=== PATIENT | male | born 1945 | race Caucasian/White ===

== ENCOUNTER 2021-07-11 10:47 | Inpatient (IN) ==
[2021-07-11] MEDS ORDERED: SODIUM CHLORIDE 0.9% 1000ML 2,000 ML IV ONE (11:18)
[2021-07-11] MEDS ORDERED: ACETAMINOPHEN 500 MG TAB PO STA (11:18)
--- NOTE | 2021-07-11 11:38 | Emergency Department Note ---
Impression & Plan Sepsis, Atrial fibrillation, Influenza A, Elevated troponin ED Provider Note Name: SABAS MONACO Age: 75 Sex: M Arrives Via: Walk-In Informant: Patient, ED Provider: Martin Yap MD Chief Complaint: Illness Impression: As per impressions above Medical Decision Making: Pleasant 75-year-old gentleman with a history of A. fib, type 2 diabetes on anticoagulation amongst other medications. He arrives for evaluation of fevers, confusion and significant worsening of cough/shortness of breath at home. On evaluation patient is mildly confused though is awake alert oriented in no significant distress. He is tachycardic and dehydrated appearing. Given these findings a sepsis work-up was initiated and patient had extensive laboratory testing obtained. His tachycardia started improving with fluids and Tylenol. I do note that he had a repeat temperature which was positive here and following this further fluids and empiric antibiotics were begun. Symptoms are consistent with a respiratory illness and thus Covid and flu testing were obtained and his influenza A test was eventually positive. His troponin testing is positive though EKG is without any acute ischemia. I do feel that this is likely secondary NSTEMI rather than primary ACS at this time. I will note that patient was treated per sepsis guidelines including a 30/kg IV bolus based on his ideal body weight of 70 kg. He received 2.5 L of IV fluids within the first 3 hours along with empiric IV Zosyn as antibiotic. Initial lactate was elevated at 3 and repeat repeat reveals to show improvement in his lactic acidosis. Patient was reevaluated for volume status following fluid administration and appears euvolemic and thus further fluids were not initiated following his initial bolus of fluids. Hospitalist was consulted for further management of the patient and patient/ are on board with this plan. Prior Medical Record and Triage/Nursing Notes reviewed by Me Additional history obtained from chart Differentials:Viral syndrome, otitis, pharyngitis, pneumonia, influenza, meningitis, urinary tract infection, sepsis, bacteremia, as well as other pathologies. Vital Signs: reviewed and remarkable for tachycardia, fever Interventions: Normal saline bolus 2.5 L IV, Zosyn 4.5 g IV, Tylenol 1 g p.o. Labs:Reviewed and remarkable for elevated lactic acid elevated troponin Imagin view chest x-ray reveals some mild congestion throughout without any lobar infiltrates EKG:Per My Interpretation: Indication Sepsis: Afib RVR 123 bpm, qtc 389. No Ectopy. No Ischemia. No previous EKG for comparison Cardiac/Tele Monitoring: Cardiac Monitoring: An Order was placed for continuous cardiac monitoring. The monitor shows a rate of 110 with a afib rhythm. Consults:Hospitalist Plan: Disposition:Hospitalization. Condition: Fair History of Present Illness:75-year-old gentleman arrives for evaluation of illness. Patient with 2 to 3 months of persistent cough and congestion. Seems to come in waves though has never been to severe. He has had testing periodically for Covid which have been negative. Overnight worsening cough with production. Associated with fevers and confusion. This morning patient was very short of breath, quite confused and febrile. Temperature at home was 101 per the . He was given Motrin with mild improvement. She notes his confusion is much improved since he has gotten here. He notes he feels like he just cannot catch his breath. He denies any syncope, chest pain, headache, neck pain abdominal pain, back pain, urinary/bowel symptoms, leg swelling, bruising/bleeding or other symptoms. He does note a history of A. fib but is on anticoagulation for. He has been on no recent antibiotics. Patient notes that exertion seems to make his shortness of breath worse and rest seems to make it better. Patient has no known sick con tacts. He does have history of Covid vaccination. ROS: See above HPI for pertinent positives & negatives. A total of 10 systems reviewed and were otherwise negative. Past Medical History:Hypertension, diabetes, atrial fibrillation Past Surgical History:See Below Family History:See Below Social History:See Below Home Medications:See Below Allergies:See Below Vitals:Blood Pressure: 123/60, Pulse 123, RR 22, T 37.4C, O2 95% on RA Physical Exam: GENERAL: Patient is unwell appearing and in no mild distress. A&O though tired appearing EYES: No scleral icterus, unremarkable pupils. ENT: Mucous membranes dry, no nasal congestion. NECK: No masses appreciated, nomeningismus, trachea is midline. RESPIRATORY: Mild tachypnea and cough with mild crackles all lung randall CARDIOVASCULAR: Tachy/irregular.No murmurs, rubs, gallops appreciated. GASTROINTESTINAL: Abdomen soft, non-tender, no peritonitis.Bowel sounds positive.No masses appreciated. BACK: No midline tenderness, no CVA tenderness EXTREMITIES: Normal motion all extremities, no cyanosis, no edema. NEUROLOGIC: Alert and oriented, no acute motor or sensory deficits, no focal weakness, cranial nerves grossly intact. SKIN: No rash, no jaundice, no diaphoresis. GCS: 15 ED Course: Times/Reassessments: Multiple reevaluations throughout the stay reevaluating patient for volume status and heart rate and mental status checks. Patient i mproving as fluid resuscitation initiated and cooperative with plan to hospitalize. Critical Care: I have personally spent 45 minutes of critical care time in the direct yuliana gement of this patient. Severe sepsis secondary to influenza requiring resuscitation. This was a life/limb threatening event. This 45 minutes is in excess of all separately billable procedures. Martin Yap MD Past Med/Surg History Medical History (Updated 07/12/21 @ 12:46 by Martin Yap MD) Atrial fibrillation Type 2 diabetes mellitus Social History Smoking Status: Former smoker Second Hand Exposure: Yes; Do You Dip or Chew Tobacco: No; Tobacco Cessation Education Requested by Patient: No Hx Alcohol Use: Yes Alcohol type: beer, wine and hard liquor Hx Substance Use: No Preferred Language: Wolof Communication Ability: Effective Production Cost Estimator Required: No Beliefs That Will Affect Care: None Current Living Situation: Spouse Other Information That Helps Us Care for You: No Feels Safe at Home: Yes Safety Concerns: Feels Safe At This Time Assistive Devices: None Allergies Allergies Allergy/AdvReac Type Severity Reaction Status Date / Time No Known Allergies Allergy Verified 07/11/21 11:48 Home Meds Home Medications Medication Instructions Recorded Confirmed dapagliflozin 10 mg tablet 10 mg PO DAILY 07/11/21 07/11/21 (Farxiga) glimepiride 1 mg tablet 1 mg PO QAM 07/11/21 07/11/21 lisinopril 10 mg tablet 10 mg PO QDD 07/11/21 07/11/21 metformin 500 mg tablet 1,000 mg PO BID 07/11/21 07/11/21 metoprolol succinate 50 mg 50 mg PO DAILY 07/11/21 07/11/21 tablet,extended release 24 hr rivaroxaban 20 mg tablet (Xarelto) 20 mg PO QDD 07/11/21 07/11/21 sitagliptin 100 mg tablet (Januvia) 100 mg PO DAILY 07/11/21 07/11/21 Results & Data (ED) Vital Signs Vital Signs - 24 hr 07/11/21 12:50 07/11/21 13:00 07/11/21 13:10 Pulse Rate 118 H 100 H 100 H Pulse Rate from SpO2 Sensor 104 H 107 H Respiratory Rate 29 H 25 H 17 Pulse Oximetry 91 94 Oxygen Delivery Method Room Air Room Air Room Air 07/11/21 13:20 07/11/21 13:30 07/11/21 13:40 Pulse Rate 101 H 100 H 101 H Pulse Rate from SpO2 Sensor 103 H 103 H 103 H Respiratory Rate 22 22 27 H Pulse Oximetry 93 93 92 Oxygen Delivery Method Room Air Room Air Room Air Laboratory Data Result diagrams: 07/12/21 06:58 07/12/21 06:58 Lab Results 07/11/21 07/11/21 07/11/21 Range/Units 11:35 11:35 11:38 WBC (4.8-10.8) K/uL RBC (4.7-6.1) M/uL Hgb (14.0-18.0) g/dL Hct (42-52) % MCV (80-100) fL MCH (25-34) pg MCHC (32-36) g/dL RDW Std Deviation (36.4-46.3) fL RDW Coeff of Leila (11.5-14.5) % Plt Count (130-400) K/uL MPV (7.4-10.4) fL Immature Gran % (Auto) % Neut % (Auto) % Lymph % (Auto) % [place] % (Auto) % Eos % (Auto) % Baso % (Auto) % Neut # (Auto) (1.4-6.5) K/uL Lymph # (Auto) (1.2-3.4) K/uL [place] # (Auto) (0.11-0.59) K/uL Eos # (Auto) (0-0.5) K/uL Baso # (Auto) (0-0.2) K/uL Immature Gran # (Auto) (0.00-0.02) K/uL Sodium (136-145) mmol/L Potassium (3.5-5.1) mmol/L Chloride (98-107) mmol/L Carbon Dioxide (21-32) mmol/L Anion Gap (3-11) BUN (6-23) mg/dl Creatinine (0.6-1.4) mg/dl Est Cr Clr Drug Dosing ml/min Est GFR ( Amer) ml/min Est GFR (Non-Af Amer) ml/min BUN/Creatinine Ratio (10-20) Glucose (70-99(Fasting)) mg/dl Lactate 3.1 H* (0.4-2.0) mmol/L Calcium (8.5-10.1) mg/dl Magnesium (1.7-2.4) mg/dl Total Bilirubin (0.2-1.0) mg/dl Direct Bilirubin (0-0.2) mg/dl AST (13-39) U/L ALT (7-52) U/L Alkaline Phosphatase (34-104) U/L Troponin I (0-0.04) ng/ml Total Protein (6.0-8.3) gm/dl Albumin (3.4-5.0) gm/dl Lipase (11-82) U/L Procalcitonin (0-0.5) ng/ml Urine Color Urine Appearance (Clear) Urine pH (4.5-7.5) Ur Specific [place] (1.000-1.030) Urine Protein (Negative) Urine Glucose (UA) (Negative) Urine Ketones (Negative) Urine Blood (Negative) Urine Nitrite (Negative) Urine Bilirubin (Negative) Urine Urobilinogen (Negative) Ur Leukocyte Esterase (Negative) Urine WBC (Auto) (0-5) /hpf Urine RBC (Auto) (0-4) /hpf U Hyaline Cast (Auto) (0-5) /lpf U Epithel Cells (Auto) (0-5) /lpf Urine Bacteria (Auto) (Negative) Influ A Molecular Assay Positive A* (Negative) Influ B Molecular Assay Negative (Negative) SARS-CoV-2, RNA, NAAT NEGATIVE (NEGATIVE) 07/11/21 07/11/21 07/11/21 Range/Units 11:38 11:38 11:38 WBC 12.54 H (4.8-10.8) K/uL RBC 5.68 (4.7-6.1) M/uL Hgb 16.7 (14.0-18.0) g/dL Hct 49.6 (42-52) % MCV 87.3 (80-100) fL MCH 29.4 (25-34) pg MCHC 33.7 (32-36) g/dL RDW Std Deviation 47.3 H (36.4-46.3) fL RDW Coeff of Leila 14.9 H (11.5-14.5) % Plt Count 212 (130-400) K/uL MPV 10.9 H (7.4-10.4) fL Immature Gran % (Auto) 0.4 % Neut % (Auto) 84.0 % Lymph % (Auto) 6.5 % [place] % (Auto) 8.8 % Eos % (Auto) 0.1 % Baso % (Auto) 0.2 % Neut # (Auto) 10.55 H (1.4-6.5) K/uL Lymph # (Auto) 0.81 L (1.2-3.4) K/uL [place] # (Auto) 1.10 H (0.11-0.59) K/uL Eos # (Auto) 0.01 (0-0.5) K/uL Baso # (Auto) 0.02 (0-0.2) K/uL Immature Gran # (Auto) 0.05 H (0.00-0.02) K/uL Sodium 135 L (136-145) mmol/L Potassium 4.1 (3.5-5.1) mmol/L Chloride 100 (98-107) mmol/L Carbon Dioxide 23 (21-32) mmol/L Anion Gap 12 H (3-11) BUN 16 (6-23) mg/dl Creatinine 1.14 (0.6-1.4) mg/dl Est Cr Clr Drug Dosing 59.4 ml/min Est GFR ( Amer) 72.5 ml/min Est GFR (Non-Af Amer) 62.6 ml/min BUN/Creatinine Ratio 14.0 (10-20) Glucose 253 H (70-99(Fasting)) mg/dl Lactate (0.4-2.0) mmol/L Calcium 9.9 (8.5-10.1) mg/dl Magnesium 1.8 (1.7-2.4) mg/dl Total Bilirubin 0.5 (0.2-1.0) mg/dl Direct Bilirubin 0.1 (0-0.2) mg/dl AST 18 (13-39) U/L ALT 17 (7-52) U/L Alkaline Phosphatase 60 (34-104) U/L Troponin I 1.61 H* (0-0.04) ng/ml Total Protein 7.6 (6.0-8.3) gm/dl Albumin 4.4 (3.4-5.0) gm/dl Lipase 29 (11-82) U/L Procalcitonin 0.41 (0-0.5) ng/ml Urine Color Urine Appearance (Clear) Urine pH (4.5-7.5) Ur Specific [place] (1.000-1.030) Urine Protein (Negative) Urine Glucose (UA) (Negative) Urine Ketones (Negative) Urine Blood (Negative) Urine Nitrite (Negative) Urine Bilirubin (Negative) Urine Urobilinogen (Negative) Ur Leukocyte Esterase (Negative) Urine WBC (Auto) (0-5) /hpf Urine RBC (Auto) (0-4) /hpf U Hyaline Cast (Auto) (0-5) /lpf U Epithel Cells (Auto) (0-5) /lpf Urine Bacteria (Auto) (Negative) Influ A Molecular Assay (Negative) Influ B Molecular Assay (Negative) SARS-CoV-2, RNA, NAAT (NEGATIVE) 07/11/21 Range/Units 12:05 WBC (4.8-10.8) K/uL RBC (4.7-6.1) M/uL Hgb (14.0-18.0) g/dL Hct (42-52) % MCV (80-100) fL MCH (25-34) pg MCHC (32-36) g/dL RDW Std Deviation (36.4-46.3) fL RDW Coeff of Leila (11.5-14.5) % Plt Count (130-400) K/uL MPV (7.4-10.4) fL Immature Gran % (Auto) % Neut % (Auto) % Lymph % (Auto) % [place] % (Auto) % Eos % (Auto) % Baso % (Auto) % Neut # (Auto) (1.4-6.5) K/uL Lymph # (Auto) (1.2-3.4) K/uL [place] # (Auto) (0.11-0.59) K/uL Eos # (Auto) (0-0.5) K/uL Baso # (Auto) (0-0.2) K/uL Immature Gran # (Auto) (0.00-0.02) K/uL Sodium (136-145) mmol/L Potassium (3.5-5.1) mmol/L Chloride (98-107) mmol/L Carbon Dioxide (21-32) mmol/L Anion Gap (3-11) BUN (6-23) mg/dl Creatinine (0.6-1.4) mg/dl Est Cr Clr Drug Dosing ml/min Est GFR ( Amer) ml/min Est GFR (Non-Af Amer) ml/min BUN/Creatinine Ratio (10-20) Glucose (70-99(Fasting)) mg/dl Lactate (0.4-2.0) mmol/L Calcium (8.5-10.1) mg/dl Magnesium (1.7-2.4) mg/dl Total Bilirubin (0.2-1.0) mg/dl Direct Bilirubin (0-0.2) mg/dl AST (13-39) U/L ALT (7-52) U/L Alkaline Phosphatase (34-104) U/L Troponin I (0-0.04) ng/ml Total Protein (6.0-8.3) gm/dl Albumin (3.4-5.0) gm/dl Lipase (11-82) U/L Procalcitonin (0-0.5) ng/ml Urine Color Yellow Urine Appearance Clear (Clear) Urine pH 5.5 (4.5-7.5) Ur Specific [place] 1.023 (1.000-1.030) Urine Protein 1+ H (Negative) Urine Glucose (UA) 3+ H (Negative) Urine Ketones 1+ H (Negative) Urine Blood 2+ H (Negative) Urine Nitrite Negative (Negative) Urine Bilirubin Negative (Negative) Urine Urobilinogen Negative (Negative) Ur Leukocyte Esterase Negative (Negative) Urine WBC (Auto) 0 (0-5) /hpf Urine RBC (Auto) 5-10 H (0-4) /hpf U Hyaline Cast (Auto) 0 (0-5) /lpf U Epithel Cells (Auto) 0-5 (0-5) /lpf Urine Bacteria (Auto) Negative (Negative) Influ A Molecular Assay (Negative) Influ B Molecular Assay (Negative) SARS-CoV-2, RNA, NAAT (NEGATIVE) Administered Medications Piperacillin Sod/Tazobactam (Sod 3.375 gm/ Dextrose) 115 mls @ 28.75 mls/hr IV Q8H [facility]; Protocol Stop: 07/13/21 17:59 Last Admin: 07/12/21 11:29 Dose: 28.8 mls/hr Documented by: [id number] Infusion: 07/12/21 07:21 Dose: 0 mls/hr Documented by: [id number] Admin: 07/12/21 02:56 Dose: 28.8 mls/hr Documented by: [id number] Infusion: 07/11/21 21:45 Dose: 0 mls/hr Documented by: [id number] Admin: 07/11/21 17:44 Dose: 28.8 mls/hr Documented by: [id number] Insulin Aspart (Insulin Aspart Per Unit) 0 units SC ACHS [facility] Stop: 08/10/21 16:29 Last Admin: 07/12/21 11:26 Dose: Not Given Documented by: [id number] Admin: 07/12/21 09:09 Dose: Not Given Documented by: [id number] Admin: 07/11/21 21:42 Dose: Not Given Documented by: [id number] Cosigned by: [id number] Admin: 07/11/21 16:59 Dose: 4 units Documented by: [id number] Cosigned by: [id number] Metoprolol Succinate (Metoprolol Succ 50mg Ext Rel Tab) 50 mg PO DAILY [facility] Stop: 08/11/21 08:59 Last Admin: 07/12/21 08:35 Dose: 50 mg Documented by: [id number] Oseltamivir Phosphate (Oseltamivir Phosphate 75 Mg Cap) 75 mg PO BID [facility]; Protocol Stop: 07/16/21 20:59 Last Admin: 07/12/21 08:35 Dose: 75 mg Documented by: [id number] Admin: 07/11/21 21:02 Dose: 75 mg Documented by: [id number] Rivaroxaban (Rivaroxaban 20 Mg Tab) 20 mg PO QDD [facility] Stop: 08/10/21 16:44 Last Admin: 07/11/21 17:44 Dose: 20 mg Documented by: [id number] Discontinued Medications Acetaminophen (Acetaminophen 500 Mg Tab) 1,000 mg PO NOW STA Stop: 07/11/21 11:19 Last Admin: 07/11/21 11:53 Dose: 1,000 mg Documented by: [id number] Sodium Chloride (Nss 1000ml) 2,000 mls @ 999 mls/hr IV .Q2H1M ONE Stop: 07/11/21 13:18 Last Infusion: 07/11/21 14:06 Dose: 0 mls/hr Documented by: [id number] Admin: 07/11/21 11:48 Dose: 999 mls/hr Documented by: [id number] Piperacillin Sod/Tazobactam Sod (Zosyn) 4.5 gm in 120 mls @ 240 mls/hr IV NOW ONE Stop: 07/11/21 12:28 Last Infusion: 07/11/21 12:56 Dose: 0 mls/hr Documented by: [id number] Admin: 07/11/21 12:24 Dose: 240 mls/hr Documented by: [id number] Sodium Chloride (Nss) 500 mls @ 999 mls/hr IV .Q31M ONE Stop: 07/11/21 12:29 Last Infusion: 07/11/21 12:56 Dose: 0 mls/hr Documented by: [id number] Admin: 07/11/21 12:25 Dose: 999 mls/hr Documented by: [id number] Oseltamivir Phosphate (Oseltamivir Phosphate 75 Mg Cap) 75 mg PO NOW STA; Protocol Stop: 07/11/21 12:15 Last Admin: 07/11/21 12:24 Dose: 75 mg Documented by: [id number] Discharge Plan Visit Data Chief Complaint: Fever Stated Complaint: FEVER, WEEZING, SOB, DR REFERRED ED Provider: Martin Yap Discharge Problem: Sepsis, Atrial fibrillation, Influenza A, Elevated troponin Patient Disposition: Admitted As Inpatient Discharge Instructions Interventions: ED Discharge Assessment Last Done: 07/11/21 14:45 Discharge Problem: Sepsis Qualifiers: Sepsis type: sepsis due to unspecified organism Sepsis acute organ dysfunction status: with acute organ dysfunction Severe sepsis acute organ dysfunction type: unspecified Severe sepsis shock status: without septic shock Qualified Code(s): A41.9 - Sepsis, unspecified organism Atrial fibrillation Qualifiers: Atrial fibrillation type: longstanding persistent Qualified Code(s): I48.11 - Longstanding persistent atrial fibrillation
[2021-07-11 11:55] LABS: Basophils # (auto) 0.02 K/uL (0-0.2); Basophils % (auto) 0.2 %; Eosinophils # (auto) 0.01 K/uL (0-0.5); Eosinophils % (auto) 0.1 %; Hematocrit (blood only) 49.6 % (42-52); Hemoglobin 16.7 g/dL (14.0-18.0); Immature Granulocytes # (auto) 0.05 K/uL (0.00-0.02); Immature Granulocytes % (auto) 0.4 %; Lymphocytes # (auto) 0.81 K/uL (1.2-3.4); Lymphocytes % (auto) 6.5 %; Mean Corpuscular Hemoglobin 29.4 pg (25-34); Mean Corpuscular Hgb Conc 33.7 g/dL (32-36); Mean Corpuscular Volume 87.3 fL (80-100); Mean Platelet Volume 10.9 fL (7.4-10.4); Monocytes % (auto) 8.8 %; Neutrophils # (auto) 10.55 K/uL (1.4-6.5); Platelet Count 212 K/uL (130-400); RDW Coefficient of Variation 14.9 % (11.5-14.5); RDW Standard Deviation 47.3 fL (36.4-46.3); Red Blood Count 5.68 M/uL (4.7-6.1); White Blood Count 12.54 K/uL (4.8-10.8)
[2021-07-11] MEDS ORDERED: SODIUM CHLORIDE 0.9% 500 ML IV ONE (11:59)
[2021-07-11] MEDS ORDERED: PIPERACILLIN/TAZOBACTAM 4.5 GM/120 ML BAG IV ONE (11:59)
[2021-07-11] MEDS ORDERED: PIPERACILL/TAZOBAC CONSULT ACTIVE PRN (11:59)
--- NOTE | 2021-07-11 12:09 | XRay Report ---
XR chest 1V portable CLINICAL HISTORY: sob. COMPARISON STUDY: No previous studies for comparison. TECHNIQUE: 1 view of the chest FINDINGS: Single frontal view of the chest demonstrates the cardiomediastinal silhouette to be within normal li mits. There is a decreased inspiratory effort with elevation of the hemidiaphragms and crowding of th e bronchovascular markings at the lung bases and centrally. The lungs are clear of alveolar opacities . There is no evidence for pleural effusion. There is no evidence for vascular congestion. There is n o acute osseous pathology. IMPRESSION: 1. There is a decreased inspiratory effort with otherwise no acute chest disease. ACT 112: Negative or not required by law. Electronically signed by: Samson Krause M.D. 07/11/2021 12:08 PM
[2021-07-11 12:13] LABS: Influenza A virus by PCR Positive (Negative); Influenza B virus by PCR Negative (Negative)
[2021-07-11] MEDS ORDERED: OSELTAMIVIR PHOSPHATE 75 MG CAP PO STA (12:14)
[2021-07-11 12:25] LABS: Albumin Level 4.4 gm/dl (3.4-5.0); Bilirubin Direct 0.1 mg/dl (0-0.2); Bilirubin,Total 0.5 mg/dl (0.2-1.0); Calcium 9.9 mg/dl (8.5-10.1); Creatinine Clr Calc Pharmacy 59.4 ml/min; Est GFR (African American) 72.5 ml/min; Est GFR (Non-African American) 62.6 ml/min; Magnesium 1.8 mg/dl (1.7-2.4); Potassium 4.1 mmol/L (3.5-5.1); Total Protein 7.6 gm/dl (6.0-8.3)
[2021-07-11 12:27] LABS: Troponin I 1.61 ng/ml (0-0.04)
[2021-07-11 12:28] LABS: Appearance Urine Clear (Clear); Bacteria Urine Automated Negative (Negative); Bilirubin Urine Negative (Negative); Blood Urine 2+ (Negative); Cast Urine Automated 0 /lpf (0-5); Color Urine Yellow; Epithelial Cell Urine Auto 0-5 /lpf (0-5); Glucose Urine UA 3+ (Negative); Ketones Urine 1+ (Negative); Leukocyte Esterase Urine Negative (Negative); Nitrite Urine Negative (Negative); Protein Urine 1+ (Negative); Specific Gravity Urine 1.023 (1.000-1.030); Urobilinogen Urine Negative (Negative); WBC Urine Automated 0 /hpf (0-5); pH Urine 5.5 (4.5-7.5)
--- NOTE | 2021-07-11 13:11 | Electrocardiogram Report ---
Test Reason : Blood Pressure : / mmHG Vent. Rate : 123 BPM Atrial Rate : 083 BPM P-R Int : 000 ms QRS Dur : 086 ms QT Int : 272 ms P-R-T Axes : 000 082 033 degrees QTc Int : 389 ms Atrial fibrillation with rapid ventricular response Abnormal ECG No previous ECGs available Confirmed by Jourdan Cabrera ([id number]) on 07/11/2021 1:11:19 PM Referred By: Confirmed By:Jourdan Cabrera
[2021-07-11] MEDS ORDERED: GLUCOSE 10 TABS/TUBE PO PRN (14:05)
[2021-07-11] MEDS ORDERED: GLUCAGON FOR INJ 1 MG VIAL SQ PRN (14:05)
[2021-07-11] MEDS ORDERED: GLUCOSE 40% GEL 15 GM TUBE PO PRN (14:05)
[2021-07-11] MEDS ORDERED: CARBOHYDRATES FOR HYPOGLYCEMIA PO PRN (14:05)
[2021-07-11] MEDS ORDERED: DEXTROSE 50% 50 ML SYRINGE IV PRN (14:05)
[2021-07-11] MEDS ORDERED: NITROGLYCERIN SL 0.4 MG/TAB TAB SL PRN (15:17)
[2021-07-11] MEDS ORDERED: ACETAMINOPHEN 325 MG TAB PO PRN (15:17)
--- NOTE | 2021-07-11 15:54 | History & Physical Report ---
Date of Service July 11, 2021 Assessment & Plan (1) Sepsis: Plan: Received 2500 ml of IVF in ED - repeat lactate improved to 2.0. Vital signs and clinical status improved post-fluid resuscitation. Influenza A positive, blood cultures pending. Creatinine at baseline of 1.1-1.2. - Repeat lactate again this evening - hold additional IVF for now unless lactate worsening, vitals worsening again - Empiric broad-spectrum antibiotics until blood cultures back - Repeat labs in AM (2) Influenza A: Plan: Tamiflu started in the ED - will continue. (3) Elevated troponin: Plan: Suspect related to demand ischemia related to sepsis and atrial fibrillation with RVR - Monitor on PCU - Trend troponin - Check ECHO - Repeat EKG in AM - Will hold on cardiology consult for now but if troponin worsening, EKG changes, or abnormalities on ECHO then can re-evaluate (4) Type 2 diabetes mellitus: Plan: Last A1c on 04/21/21 was 6.6 - Hold oral diabetic agents - Insulin sliding scale - Accuchecks and diabetic diet (5) Atrial fibrillation: Plan: Suspect RVR related to underlying sepsis - improved with IV fluid hydration - Continue anticoagulation as taken outpatient (Xarelto) (6) Microscopic hematuria: Plan: Pt denies gross hematuria - will defer work-up to outpatient. Plan: Holding Lisinopril for now - consider restarting tomorrow if BP stabilized. Pt seen and evaluated with attending physician, Dr. Faulkner. Plan of care discussed and as outlined above. Pt's , Janell, was updated at the bedside. DVT Prophylaxis: Xarelto Code Status: Full code David Nelson PA-C Admission and Anticipated Discharge Date Admission Date: July 11, 2021 History of Present Illness Chief Complaint: Fever and confusion Primary Care Provider: Nic Durbin MD This is a 75 y/o male with a PMH of atrial fibrillation on anticoagulation and diabetes mellitus type 2 who presents to the ED today with fever, confusion, and lethargy. Pt reports ongoing issues with intermittent cold symptoms since April. He was exposed to someone with cold symptoms and fatigue around [place] and shortly after developed similar symptoms and a low-grade fever. Flu and COVID testing were negative at that time. Symptoms have continued to wax and wane since then. Pt's reports that pt hasn't been himself for the past few days. Yesterday, he reports that he just "didn't feel well" but was unable to localize specific symptoms. Last night, he slept okay but this morning he woke up around 7 am confused, thinking that it was 7 pm last night. His noted that he had a fever of 100.9F. They called the PCP office who referred him to urgent care. At urgent care, they recommended that he be seen in the ED so they came here for evaluation. He has had a non-productive cough for the past several weeks but this is worse today. He also notes chest congestion today. Appetite is at baseline. Denies chest pain, palpitations, syncope, or peripheral edema. He has had some dizziness today but this has improved with IV hydration. He reports received the flu vaccine 2-3 months ago and the COVID vaccine x 3 doses. No specific known sick contacts. Has been sporadically using Tylenol PM and Motrin for cold symptoms since April but no t consistently. Allergies Allergy/AdvReac Type Severity Reaction Status Date / Time No Known Allergies Allergy Verified 07/11/21 11:48 Home Medications Medication Instructions Recorded Confirmed Type dapagliflozin 10 mg tablet 10 mg PO DAILY 07/11/21 07/11/21 History (Farxiga) glimepiride 1 mg tablet 1 mg PO QAM 07/11/21 07/11/21 History lisinopril 10 mg tablet 10 mg PO QDD 07/11/21 07/11/21 History metformin 500 mg tablet 1,000 mg PO BID 07/11/21 07/11/21 History metoprolol succinate 50 mg 50 mg PO DAILY 07/11/21 07/11/21 History tablet,extended release 24 hr rivaroxaban 20 mg tablet (Xarelto) 20 mg PO QDD 07/11/21 07/11/21 History sitagliptin 100 mg tablet (Januvia) 100 mg PO DAILY 07/11/21 07/11/21 History Past Med/Surg History Medical History (Updated 07/11/21 @ 16:14 by Abena Nelson PA-C) Atrial fibrillation Type 2 diabetes mellitus Social History Smoking Status: Former smoker Second Hand Exposure: Yes; Do You Dip or Chew Tobacco: No; Tobacco Cessation Education Requested by Patient: No Hx Alcohol Use: Yes Alcohol type: beer, wine and hard liquor Hx Substance Use: No Preferred Language: Egyptian Communication Ability: Effective Press Manager Required: No Beliefs That Will Affect Care: None Current Living Situation: Spouse Other Information That Helps Us Care for You: No Feels Safe at Home: Yes Safety Concerns: Feels Safe At This Time Assistive Devices: Denture - Upper Review of Systems Review of Systems: All systems reviewed & are unremarkable except as noted in HPI & below Constitutional: + fever, + chills and + fatigue; no anorexia Eyes: no diplopia and no worsening vision Ear, Nose, Mouth, Throat: + nasal congestion and + nasal discharge; no sore throat and no dysphagia Respiratory: + cough, + chest congestion and + dyspnea; no hemoptysis and no wheezing Cardiovascular: no chest pain, no palpitations, no syncope and no edema Gastrointestinal: no abdominal pain, no nausea, no vomiting, no diarrhea/loose stools and no blood in stools Genitourinary: no dysuria, no urinary frequency or no hematuria Musculoskeletal: no back pain and no neck pain Integumentary: no rash and no yellowing of the skin Neurologic: + dizziness and + confusion (this morning - improved at present); no seizure-like activity and no headache(s) Psychiatric: no depression and no anxiety Physical Exam Constitutional: well developed and well nourished; no acute distress Eyes: PERRL, conjunctivae normal, anicteric sclerae ENMT: external ear and nose normal, oropharynx normal Neck: trachea midline Respiratory: no respiratory distress and no labored breathing Auscultation: lungs clear to auscultation bilaterally; no rales, no rhonchi and no wheezes Cardiovascular: Rate/Rhythm: + tachycardic and + irregularly irregular Vessels: radial pulses present Extremities: no pedal edema Gastrointestinal (Abdomen): Inspection/Auscultation: normal bowel sounds; abdomen not distended Percussion/Palpation: abdomen soft; abdomen nontender Musculoskeletal: Head/Neck/Chest: normocephalic, head atraumatic and neck supple Skin: no jaundice Neurologic: moves all extremities; no focal motor deficits and not confused Psychiatric: A+Ox3, euthymic affect Results & Data Results & Data ([facility]) Vital Signs (Past 12 Hours) Vital Signs Temp Pulse Pulse Resp BP BP Pulse Ox 07/11/21 15:21 37.1 C 95 H 20 153/93 H 93 07/11/21 14:10 96 H 19 91 07/11/21 14:00 107 H 21 138/92 92 07/11/21 13:50 103 H 25 H 92 07/11/21 13:40 101 H 27 H 92 07/11/21 13:30 100 H 22 93 07/11/21 13:20 101 H 22 93 07/11/21 13:10 100 H 17 94 07/11/21 13:00 100 H 25 H 91 07/11/21 12:50 118 H 29 H 07/11/21 12:40 100 H 26 H 94 07/11/21 12:30 99 H 32 H 149/111 H 92 07/11/21 12:20 105 H 37 H 92 07/11/21 12:10 113 H 28 H 93 07/11/21 12:00 107 H 25 H 93 07/11/21 11:50 115 H 32 H 92 07/11/21 11:49 38.6 C H 07/11/21 10:59 36.6 C 134 H 18 188/101 H 94 Laboratory Results Laboratory Results - last 24 hr 07/11/21 07/11/21 07/11/21 11:35 11:35 11:38 WBC RBC Hgb Hct MCV MCH MCHC RDW Std Deviation RDW Coeff of Leila Plt Count MPV Immature Gran % (Auto) Neut % (Auto) Lymph % (Auto) [place] % (Auto) Eos % (Auto) Baso % (Auto) Neut # (Auto) Lymph # (Auto) [place] # (Auto) Eos # (Auto) Baso # (Auto) Immature Gran # (Auto) Sodium Potassium Chloride Carbon Dioxide Anion Gap BUN Creatinine Est Cr Clr Drug Dosing Est GFR ( Amer) Est GFR (Non-Af Amer) BUN/Creatinine Ratio Glucose Lactate 3.1 H* Calcium Magnesium Total Bilirubin Direct Bilirubin AST ALT Alkaline Phosphatase Troponin I Total Protein Albumin Lipase Procalcitonin Urine Color Urine Appearance Urine pH Ur Specific [place] Urine Protein Urine Glucose (UA) Urine Ketones Urine Blood Urine Nitrite Urine Bilirubin Urine Urobilinogen Ur Leukocyte Esterase Urine WBC (Auto) Urine RBC (Auto) U Hyaline Cast (Auto) U Epithel Cells (Auto) Urine Bacteria (Auto) Influ A Molecular Assay Positive A* Influ B Molecular Assay Negative SARS-CoV-2, RNA, NAAT NEGATIVE 07/11/21 07/11/21 07/11/21 11:38 11:38 11:38 WBC 12.54 H RBC 5.68 Hgb 16.7 Hct 49.6 MCV 87.3 MCH 29.4 MCHC 33.7 RDW Std Deviation 47.3 H RDW Coeff of Leila 14.9 H Plt Count 212 MPV 10.9 H Immature Gran % (Auto) 0.4 Neut % (Auto) 84.0 Lymph % (Auto) 6.5 [place] % (Auto) 8.8 Eos % (Auto) 0.1 Baso % (Auto) 0.2 Neut # (Auto) 10.55 H Lymph # (Auto) 0.81 L [place] # (Auto) 1.10 H Eos # (Auto) 0.01 Baso # (Auto) 0.02 Immature Gran # (Auto) 0.05 H Sodium 135 L Potassium 4.1 Chloride 100 Carbon Dioxide 23 Anion Gap 12 H BUN 16 Creatinine 1.14 Est Cr Clr Drug Dosing 59.4 Est GFR ( Amer) 72.5 Est GFR (Non-Af Amer) 62.6 BUN/Creatinine Ratio 14.0 Glucose 253 H Lactate Calcium 9.9 Magnesium 1.8 Total Bilirubin 0.5 Direct Bilirubin 0.1 AST 18 ALT 17 Alkaline Phosphatase 60 Troponin I 1.61 H* Total Protein 7.6 Albumin 4.4 Lipase 29 Procalcitonin 0.41 Urine Color Urine Appearance Urine pH Ur Specific [place] Urine Protein Urine Glucose (UA) Urine Ketones Urine Blood Urine Nitrite Urine Bilirubin Urine Urobilinogen Ur Leukocyte Esterase Urine WBC (Auto) Urine RBC (Auto) U Hyaline Cast (Auto) U Epithel Cells (Auto) Urine Bacteria (Auto) Influ A Molecular Assay Influ B Molecular Assay SARS-CoV-2, RNA, NAAT 07/11/21 07/11/21 12:05 13:57 WBC RBC Hgb Hct MCV MCH MCHC RDW Std Deviation RDW Coeff of Leila Plt Count MPV Immature Gran % (Auto) Neut % (Auto) Lymph % (Auto) [place] % (Auto) Eos % (Auto) Baso % (Auto) Neut # (Auto) Lymph # (Auto) [place] # (Auto) Eos # (Auto) Baso # (Auto) Immature Gran # (Auto) Sodium Potassium Chloride Carbon Dioxide Anion Gap BUN Creatinine Est Cr Clr Drug Dosing Est GFR ( Amer) Est GFR (Non-Af Amer) BUN/Creatinine Ratio Glucose Lactate 2.0 Calcium Magnesium Total Bilirubin Direct Bilirubin AST ALT Alkaline Phosphatase Troponin I Total Protein Albumin Lipase Procalcitonin Urine Color Yellow Urine Appearance Clear Urine pH 5.5 Ur Specific [place] 1.023 Urine Protein 1+ H Urine Glucose (UA) 3+ H Urine Ketones 1+ H Urine Blood 2+ H Urine Nitrite Negative Urine Bilirubin Negative Urine Urobilinogen Negative Ur Leukocyte Esterase Negative Urine WBC (Auto) 0 Urine RBC (Auto) 5-10 H U Hyaline Cast (Auto) 0 U Epithel Cells (Auto) 0-5 Urine Bacteria (Auto) Negative Influ A Molecular Assay Influ B Molecular Assay SARS-CoV-2, RNA, NAAT Diagnostic Findings Chest X-ray 07/11/21 - IMPRESSION: 1. There is a decreased inspiratory effort with otherwise no acute chest disease. Medications Administered Discontinued Medications Acetaminophen (Acetaminophen 500 Mg Tab) 1,000 mg PO NOW STA Stop: 07/11/21 11:19 Last Admin: 07/11/21 11:53 Dose: 1,000 mg Documented by: [id number] Sodium Chloride (Nss 1000ml) 2,000 mls @ 999 mls/hr IV .Q2H1M ONE Stop: 07/11/21 13:18 Last Infusion: 07/11/21 14:06 Dose: 0 mls/hr Documented by: [id number] Admin: 07/11/21 11:48 Dose: 999 mls/hr Documented by: [id number] Piperacillin Sod/Tazobactam Sod (Zosyn) 4.5 gm in 120 mls @ 240 mls/hr IV NOW ONE Stop: 07/11/21 12:28 Last Infusion: 07/11/21 12:56 Dose: 0 mls/hr Documented by: [id number] Admin: 07/11/21 12:24 Dose: 240 mls/hr Documented by: [id number] Sodium Chloride (Nss) 500 mls @ 999 mls/hr IV .Q31M ONE Stop: 07/11/21 12:29 Last Infusion: 07/11/21 12:56 Dose: 0 mls/hr Documented by: [id number] Admin: 07/11/21 12:25 Dose: 999 mls/hr Documented by: [id number] Oseltamivir Phosphate (Oseltamivir Phosphate 75 Mg Cap) 75 mg PO NOW STA; Protocol Stop: 07/11/21 12:15 Last Admin: 07/11/21 12:24 Dose: 75 mg Documented by: [id number] Code Status & VTE Plan VTE Prophylaxis Plan VTE Prophylaxis will be ordered: Yes Supervising Physician Co-Signing Physician Notes I have seen and examined the patient and have discussed the case with the provider above. I agree with the assessment and plan as stated. 75 yo M with DMII, afib and HTN presents with sepsis 2/2 influenza. Doing well after resuscitation efforts in the ER this morning. Feeling much better with some persistent shortness of breath. Denies chest pain or other issues. Sick since Apr, reports intermittent fevers. Denies weight loss, night sweats or international travel. Denies covid-19 infection. Reports not going to a doctor for any of this because "I thought it was a winter cold." Physical exam reveals clear lungs to auscultation, some tachycardia on cardiac exam with regular rhythm. Mentating clearly, Abdomen soft, NTND. Not diaphoretic or ill- appearing. Cont with plan as above including Tamiflu, empiric Zosyn in setting of sepsis pending culture results, and supportive care as needed. Cont monitoring in PCU. DO Kaushik
[2021-07-11] MEDS: INSULIN ASPART PER UNIT SC SCH ×2 (16:59→21:42)
[2021-07-11] MEDS: PIPERACILLIN/TAZOBACTAM 3.375 GM in DEXTROSE 5% 100 ML IV SCH (17:44)
[2021-07-11] MEDS: RIVAROXABAN 20 MG TAB PO SCH (17:44)
[2021-07-11] MEDS: OSELTAMIVIR PHOSPHATE 75 MG CAP PO SCH (21:02)
[2021-07-12] MEDS: PIPERACILLIN/TAZOBACTAM 3.375 GM in DEXTROSE 5% 100 ML IV SCH ×2 (02:56→11:29)
[2021-07-12 07:25] LABS: Basophils # (auto) 0.02 K/uL (0-0.2); Basophils % (auto) 0.2 %; Eosinophils # (auto) 0.01 K/uL (0-0.5); Eosinophils % (auto) 0.1 %; Hematocrit (blood only) 44.8 % (42-52); Hemoglobin 14.8 g/dL (14.0-18.0); Immature Granulocytes # (auto) 0.02 K/uL (0.00-0.02); Immature Granulocytes % (auto) 0.2 %; Lymphocytes # (auto) 1.73 K/uL (1.2-3.4); Lymphocytes % (auto) 18.8 %; Mean Corpuscular Volume 87.7 fL (80-100); Mean Platelet Volume 10.7 fL (7.4-10.4); Monocytes # (auto) 1.28 K/uL (0.11-0.59); Monocytes % (auto) 13.9 %; Neutrophils # (auto) 6.12 K/uL (1.4-6.5); Neutrophils % (auto) 66.8 %; Platelet Count 187 K/uL (130-400); RDW Coefficient of Variation 15.5 % (11.5-14.5); RDW Standard Deviation 50.3 fL (36.4-46.3); Red Blood Count 5.11 M/uL (4.7-6.1); White Blood Count 9.18 K/uL (4.8-10.8)
[2021-07-12 07:50] LABS: BUN Creatinine Ratio 13.9 (10-20); Calcium 8.1 mg/dl (8.5-10.1); Creatinine Clr Calc Pharmacy 59.1 ml/min; Est GFR (African American) 71.7 ml/min; Est GFR (Non-African American) 61.9 ml/min; Potassium 3.7 mmol/L (3.5-5.1)
[2021-07-12] MEDS: OSELTAMIVIR PHOSPHATE 75 MG CAP PO SCH ×2 (08:35→21:38)
[2021-07-12] MEDS ORDERED: METOPROLOL SUCC 50MG EXT REL TAB PO SCH (09:00)
[2021-07-12] MEDS: INSULIN ASPART PER UNIT SC SCH ×4 (09:09→21:29)
--- NOTE | 2021-07-12 13:27 | Electrocardiogram Report ---
Test Reason : Blood Pressure : / mmHG Vent. Rate : 102 BPM Atrial Rate : 105 BPM P-R Int : 000 ms QRS Dur : 078 ms QT Int : 316 ms P-R-T Axes : 000 072 069 degrees QTc Int : 411 ms Atrial fibrillation with rapid ventricular response Abnormal ECG When compared with ECG of 11-JUL-2021 11:36, ST no longer elevated in Anterior leads Confirmed by Jourdan Cabrera ([id number]) on 07/12/2021 1:27:09 PM Referred By: Nic Durbin Confirmed By:Jourdan Cabrera
--- NOTE | 2021-07-12 15:37 | Hospitalist Progress Note ---
Date of Service July 12, 2021 Assessment & Plan (1) Sepsis: Plan: Received 2500 ml of IVF in ED - repeat lactate improved to 2.0. Vital signs and clinical status improved post-fluid resuscitation. Influenza A positive, blood cultures are negative so far and he is clinically well. Stop Zosyn now, cont with oseltamivir and monitoring. Procalcitonin negative. (2) Influenza A: Plan: Cont tamiflu and supportive care as needed. (3) Elevated troponin: Plan: Suspect related to demand ischemia related to sepsis and atrial fibrillation with RVR - Trend troponin -echo pending - Repeat EKG reveals afib wtih RVR with rate in low 100s, but no acute ischemia -no chest pain or concern for ACS. (4) Type 2 diabetes mellitus: Plan: Last A1c on 04/21/21 was 6.6 - Hold oral diabetic agents - Insulin sliding scale - Accuchecks and diabetic diet (5) Atrial fibrillation: Plan: Suspect RVR related to underlying sepsis - improved with IV fluid hydration although still has some malaise from flu which is expected and tachycardia in the low 100s. Will change to metoprolol 25g PO q6hrs and continue to monitor on telemetry. Continue anticoagulation as taken outpatient (Xarelto) (6) Hypertension: Plan: restart lisinopril, initially held on admission in setting of sepsis. (7) Microscopic hematuria: Plan: Pt denies gross hematuria - will defer work-up to outpatient. (8) DVT prophylaxis: Plan: Xarelto Full Code Dispo-to home in am. Nurys Faulkner DO [facility] Hospitalist Admission and Anticipated Discharge Date Admission Date: July 11, 2021 Subjective 75-year-old man presented with sepsis secondary to influenza A Patient remains afebrile and without chills overnight Overall reports he feels like he has the flu but is improved generally speaking Heart rate in the low 100s overnight likely secondary to above Denies any chest pain, shortness of breath, coughing is improved Tolerating p.o. Review of Systems Review of Systems: All systems were reviewed and negative except as indicated above. Physical Exam Physical Exam: CONSTITUTIONAL: WNWD, vitals as above, generally well- appearing, NAD EYES: normal conjunctivae, no scleral icterus ENT: external ear and nose normal, MMM NECK: trachea midline RESPIRATORY: clear to auscultation bilaterally, no crackles, rales or wheezes, normal respiratory effort CARDIOVASCULAR: S1 and 2 heard without murmurs, gallops or rubs, no JVD, no peripheral edema, CHEST: inspection of chest was normal GASTROINTESTINAL: soft, nontender, ND, no guarding MUSCULOSKELETAL: strength 5/5 throughout, head is normocephalic and atraumatic SKIN: warm and dry, NEUROLOGIC: CN 2-12 grossly intact, no sensory deficit, normal cognition, normal speech, no tremor PSYCHIATRIC: alert cooperative and oriented to person, place and time. Results & Data Results & Data ([facility]) Vital Signs (Past 12 Hours) Vital Signs Temp Pulse Resp BP BP Pulse Ox 07/12/21 15:23 37.2 C 105 H 18 96 07/12/21 11:11 36.9 C 98 H 19 148/95 H 95 07/12/21 08:07 37.0 C 104 H 19 133/94 94 07/12/21 05:33 37.2 C 102 H 16 137/76 93 Laboratory Results Short CBC 07/12/21 Range/Units 06:58 WBC 9.18 (4.8-10.8) K/uL Hgb 14.8 (14.0-18.0) g/dL Hct 44.8 (42-52) % Plt Count 187 (130-400) K/uL BMP 07/12/21 06:58 Sodium 139 Potassium 3.7 Chloride 105 Carbon Dioxide 23 BUN 16 Creatinine 1.15 Glucose 108 H Calcium 8.1 L Cardiac Enzymes 07/11/21 07/11/21 Range/Units 17:12 23:18 Troponin I 1.29 H* 1.43 H* (0-0.04) ng/ml Medications Administered Current Inpatient Medications Acetaminophen (Acetaminophen 325 Mg Tab) 650 mg PO Q4H PRN PRN Reason: Pain or Fever Stop: 08/10/21 15:16 Dextrose (Dextrose 50% 50 Ml Syringe) 25 - 50 ml IV UD PRN; Protocol PRN Reason: Hypoglycemia Protocol Stop: 08/10/21 14:04 Glucagon (Glucagon For Inj 1 Mg Vial) 1 mg SQ UD PRN; Protocol PRN Reason: Hypoglycemia Protocol Stop: 08/10/21 14:04 Glucose (Glucose 10 Tabs/Tube) 4 - 8 tabs PO UD PRN; Protocol PRN Reason: Hypoglycemia Protocol Stop: 08/10/21 14:04 Glucose (Glucose 40% Gel 15 Gm Tube) 15 - 30 gm PO UD PRN; Protocol PRN Reason: Hypoglycemia Protocol Stop: 08/10/21 14:04 Insulin Aspart (Insulin Aspart Per Unit) 0 units SC ACHS [facility] Stop: 08/10/21 16:29 Last Admin: 07/12/21 11:26 Dose: Not Given Documented by: Metoprolol Succinate (Metoprolol Succ 50mg Ext Rel Tab) 50 mg PO DAILY [facility] Stop: 08/11/21 08:59 Last Admin: 07/12/21 08:35 Dose: 50 mg Documented by: Metoprolol Tartrate (Metoprolol Tartrate 25 Mg Tab) 25 mg PO Q6H [facility] Stop: 08/11/21 15:44 Miscellaneous (Carbohydrates For Hypoglycemia ) 15 - 30 gm PO UD PRN PRN Reason: Hypoglycemia Protocol Stop: 08/10/21 14:04 Nitroglycerin (Nitroglycerin Sl 0.4 Mg/Tab Tab) 0.4 mg SL UD PRN PRN Reason: Chest Pain Stop: 08/10/21 15:16 Oseltamivir Phosphate (Oseltamivir Phosphate 75 Mg Cap) 75 mg PO BID [facility]; Protocol Stop: 07/16/21 20:59 Last Admin: 07/12/21 08:35 Dose: 75 mg Documented by: Rivaroxaban (Rivaroxaban 20 Mg Tab) 20 mg PO QDD [facility] Stop: 08/10/21 16:44 Last Admin: 07/11/21 17:44 Dose: 20 mg Documented by: (1) Sepsis Sepsis acute organ dysfunction status: with acute organ dysfunction Sepsis type: sepsis due to unspecified organism Severe sepsis acute organ dysfunction type: unspecified Severe sepsis shock status: without septic shock Qualified Code(s): A41.9 - Sepsis, unspecified organism; R65.20 - Severe sepsis without septic shock (2) Atrial fibrillation Atrial fibrillation type: longstanding persistent Qualified Code(s): I48.11 - Longstanding persistent atrial fibrillation
[2021-07-12] MEDS ORDERED: lisinopril 10 MG TAB PO SCH (16:30)
[2021-07-12] MEDS: METOPROLOL TARTRATE 25 MG TAB PO SCH ×2 (16:33→21:37)
[2021-07-12] MEDS: RIVAROXABAN 20 MG TAB PO SCH (16:34)
[2021-07-13] MEDS: METOPROLOL TARTRATE 25 MG TAB PO SCH ×2 (04:14→09:48)
[2021-07-13 07:19] LABS: Basophils # (auto) 0.03 K/uL (0-0.2); Basophils % (auto) 0.3 %; Eosinophils # (auto) 0.08 K/uL (0-0.5); Eosinophils % (auto) 0.9 %; Hematocrit (blood only) 49.1 % (42-52); Hemoglobin 16.1 g/dL (14.0-18.0); Immature Granulocytes # (auto) 0.04 K/uL (0.00-0.02); Immature Granulocytes % (auto) 0.5 %; Lymphocytes # (auto) 1.48 K/uL (1.2-3.4); Lymphocytes % (auto) 16.9 %; Mean Corpuscular Hgb Conc 32.8 g/dL (32-36); Mean Corpuscular Volume 88.3 fL (80-100); Mean Platelet Volume 10.5 fL (7.4-10.4); Monocytes # (auto) 1.16 K/uL (0.11-0.59); Monocytes % (auto) 13.3 %; Neutrophils # (auto) 5.96 K/uL (1.4-6.5); Neutrophils % (auto) 68.1 %; Platelet Count 174 K/uL (130-400); RDW Coefficient of Variation 15.4 % (11.5-14.5); RDW Standard Deviation 49.4 fL (36.4-46.3); Red Blood Count 5.56 M/uL (4.7-6.1); White Blood Count 8.75 K/uL (4.8-10.8)
[2021-07-13 08:15] LABS: BUN Creatinine Ratio 20.2 (10-20); Calcium 8.2 mg/dl (8.5-10.1); Creatinine Clr Calc Pharmacy 71.7 ml/min; Est GFR (African American) 91.6 ml/min; Potassium 4.2 mmol/L (3.5-5.1)
[2021-07-13] MEDS ORDERED: lisinopril 20 MG TAB PO ONE (08:40)
[2021-07-13] MEDS: OSELTAMIVIR PHOSPHATE 75 MG CAP PO SCH (09:48)
[2021-07-13] MEDS: INSULIN ASPART PER UNIT SC SCH ×2 (09:49→12:46)
--- NOTE | 2021-07-13 13:53 | Discharge Summary ---
Date of Service July 13, 2021 Admission HPI Per Admitting Provider This is a 75 y/o male with a PMH of atrial fibrillation on anticoagulation and diabetes mellitus type 2 who presents to the ED today with fever, confusion, and lethargy. Pt reports ongoing issues with intermittent cold symptoms since April. He was exposed to someone with cold symptoms and fatigue around [place] and shortly after developed similar symptoms and a low-grade fever. Flu and COVID testing were negative at that time. Symptoms have continued to wax and wane since then. Pt's reports that pt hasn't been himself for the past few days. Yesterday, he reports that he just "didn't feel well" but was unable to localize specific symptoms. Last night, he slept okay but this morning he woke up around 7 am confused, thinking that it was 7 pm last night. His noted that he had a fever of 100.9F. They called the PCP office who referred him to urgent care. At urgent care, they recommended that he be seen in the ED so they came here for evaluation. He has had a non-productive cough for the past several weeks but this is worse today. He also notes chest congestion today. Appetite is at baseline. Denies chest pain, palpitations, syncope, or peripheral edema. He has had some dizziness today but this has improved with IV hydration. He reports received the flu vaccine 2-3 months ago and the COVID vaccine x 3 doses. No specific known sick contacts. Has been sporadically using Tylenol PM and Motrin for cold symptoms since April but not consistently. Admission Exam Per Admitting Provider Constitutional: well developed and well nourished; no acute distress Eyes: PERRL, conjunctivae normal, anicteric sclerae ENMT: external ear and nose normal, oropharynx normal Neck: trachea midline Respiratory: no respiratory distress and no labored breathing Auscultation: lungs clear to auscultation bilaterally; no rales, no rhonchi and no wheezes Cardiovascular: Rate/Rhythm: + tachycardic and + irregularly irregular Vessels: radial pulses present Extremities: no pedal edema Gastrointestinal (Abdomen): Inspection/Auscultation: normal bowel sounds; abdomen not distended Percussion/Palpation: abdomen soft; abdomen nontender Musculoskeletal: Head/Neck/Chest: normocephalic, head atraumatic and neck supple Skin: no jaundice Neurologic: moves all extremities; no focal motor deficits and not confused Psychiatric: A+Ox3, euthymic affect Principal Diagnosis Sepsis 2/2 infuenza A Atrial fibrillation with rapid ventricular response Elevated troponin 2/2 demand ischemia Hypertension Discharge Exam CONSTITUTIONAL: WNWD, vitals as above, generally well-appearing, NAD EYES: normal conjunctivae, no scleral icterus ENT: external ear and nose normal, MMM NECK: trachea midline RESPIRATORY: clear to auscultation bilaterally, no crackles, rales or wheezes, normal respiratory effort CARDIOVASCULAR: S1 and 2 heard without murmurs, gallops or rubs, no JVD, no peripheral edema, CHEST: inspection of chest was normal GASTROINTESTINAL: soft, nontender, ND, no guarding MUSCULOSKELETAL: strength 5/5 throughout, head is normocephalic and atraumatic SKIN: warm and dry, NEUROLOGIC: CN 2-12 grossly intact, no sensory deficit, normal cognition, normal speech, no tremor PSYCHIATRIC: alert cooperative and oriented to person, place and time. Discharge Data Allergies Allergy/AdvReac Type Severity Reaction Status Date / Time No Known Allergies Allergy Verified 07/11/21 11:48 Consultations 07/11/21 12:35 ED Decision to Admit Stat Ordered Studies Laboratory Results WBC 8.75 K/uL (4.8-10.8) 07/13/21 06:59 RBC 5.56 M/uL (4.7-6.1) 07/13/21 06:59 Hgb 16.1 g/dL (14.0-18.0) 07/13/21 06:59 Hct 49.1 % (42-52) 07/13/21 06:59 MCV 88.3 fL (80-100) 07/13/21 06:59 MCH 29.0 pg (25-34) 07/13/21 06:59 MCHC 32.8 g/dL (32-36) 07/13/21 06:59 RDW Std Deviation 49.4 fL (36.4-46.3) H 07/13/21 06:59 RDW Coeff of Leila 15.4 % (11.5-14.5) H 07/13/21 06:59 Plt Count 174 K/uL (130-400) 07/13/21 06:59 MPV 10.5 fL (7.4-10.4) H 07/13/21 06:59 Immature Gran % (Auto) 0.5 % 07/13/21 06:59 Neut % (Auto) 68.1 % 07/13/21 06:59 Lymph % (Auto) 16.9 % 07/13/21 06:59 Rock % (Auto) 13.3 % 07/13/21 06:59 Eos % (Auto) 0.9 % 07/13/21 06:59 Baso % (Auto) 0.3 % 07/13/21 06:59 Neut # (Auto) 5.96 K/uL (1.4-6.5) 07/13/21 06:59 Lymph # (Auto) 1.48 K/uL (1.2-3.4) 07/13/21 06:59 Rock # (Auto) 1.16 K/uL (0.11-0.59) H 07/13/21 06:59 Eos # (Auto) 0.08 K/uL (0-0.5) 07/13/21 06:59 Baso # (Auto) 0.03 K/uL (0-0.2) 07/13/21 06:59 Immature Gran # (Auto) 0.04 K/uL (0.00-0.02) H 07/13/21 06:59 Sodium 137 mmol/L (136-145) 07/13/21 06:59 Potassium 4.2 mmol/L (3.5-5.1) 07/13/21 06:59 Chloride 104 mmol/L (98-107) 07/13/21 06:59 Carbon Dioxide 19 mmol/L (21-32) L 07/13/21 06:59 Anion Gap 14 (3-11) H 07/13/21 06:59 BUN 19 mg/dl (6-23) 07/13/21 06:59 Creatinine 0.94 mg/dl (0.6-1.4) 07/13/21 06:59 Est Cr Clr Drug Dosing 71.7 ml/min 07/13/21 06:59 Est GFR ( Amer) 91.6 ml/min 07/13/21 06:59 Est GFR (Non-Af Amer) 79.0 ml/min 07/13/21 06:59 BUN/Creatinine Ratio 20.2 (10-20) H 07/13/21 06:59 Glucose 99 mg/dl (70-99(Fasting)) 07/13/21 06:59 POC Glucose 116 mg/dl (70-99) H 07/13/21 11:19 Lactate 2.4 mmol/L (0.4-2.0) H* 07/11/21 17:12 Calcium 8.2 mg/dl (8.5-10.1) L 07/13/21 06:59 Magnesium 1.8 mg/dl (1.7-2.4) 07/11/21 11:38 Total Bilirubin 0.5 mg/dl (0.2-1.0) 07/11/21 11:38 Direct Bilirubin 0.1 mg/dl (0-0.2) 07/11/21 11:38 AST 18 U/L (13-39) 07/11/21 11:38 ALT 17 U/L (7-52) 07/11/21 11:38 Alkaline Phosphatase 60 U/L (34-104) 07/11/21 11:38 Troponin I 1.19 ng/ml (0-0.04) H* 07/12/21 06:58 Total Protein 7.6 gm/dl (6.0-8.3) 07/11/21 11:38 Albumin 4.4 gm/dl (3.4-5.0) 07/11/21 11:38 Lipase 29 U/L (11-82) 07/11/21 11:38 Procalcitonin 0.41 ng/ml (0-0.5) 07/11/21 11:38 Urine Color Yellow 07/11/21 12:05 Urine Appearance Clear (Clear) 07/11/21 12:05 Urine pH 5.5 (4.5-7.5) 07/11/21 12:05 Ur Specific [place] 1.023 (1.000-1.030) 07/11/21 12:05 Urine Protein 1+ (Negative) H 07/11/21 12:05 Urine Glucose (UA) 3+ (Negative) H 07/11/21 12:05 Urine Ketones 1+ (Negative) H 07/11/21 12:05 Urine Blood 2+ (Negative) H 07/11/21 12:05 Urine Nitrite Negative (Negative) 07/11/21 12:05 Urine Bilirubin Negative (Negative) 07/11/21 12:05 Urine Urobilinogen Negative (Negative) 07/11/21 12:05 Ur Leukocyte Esterase Negative (Negative) 07/11/21 12:05 Urine WBC (Auto) 0 /hpf (0-5) 07/11/21 12:05 Urine RBC (Auto) 5-10 /hpf (0-4) H 07/11/21 12:05 U Hyaline Cast (Auto) 0 /lpf (0-5) 07/11/21 12:05 U Epithel Cells (Auto) 0-5 /lpf (0-5) 07/11/21 12:05 Urine Bacteria (Auto) Negative (Negative) 07/11/21 12:05 Influ A Molecular Assay Positive (Negative) A* 07/11/21 11:35 Influ B Molecular Assay Negative (Negative) 07/11/21 11:35 SARS-CoV-2, RNA, NAAT NEGATIVE (NEGATIVE) 07/11/21 11:35 Impressions Chest X-Ray 07/11/21 11:23 XR chest 1V portable CLINICAL HISTORY: sob. COMPARISON STUDY: No previous studies for comparison. TECHNIQUE: 1 view of the chest FINDINGS: Single frontal view of the chest demonstrates the cardiomediastinal silhouette to be within normal limits. There is a decreased inspiratory effort with elevation of the hemidiaphragms and crowding of the bronchovascular markings at the lung bases and centrally. The lungs are clear of alveolar opacities. There is no evidence for pleural effusion. There is no evidence for vascular congestion. There is no acute osseous pathology. IMPRESSION: 1. There is a decreased inspiratory effort with otherwise no acute chest disease. ACT 112: Negative or not required by law. Electronically signed by: Samson Krause M.D. 07/11/2021 12:08 PM Hospital Course (1) Sepsis: Received 2500 ml of IVF in ED - repeat lactate improved to 2.0. Vital signs and clinical status improved post-fluid resuscitation. Influenza A positive, blood cultures are negative so far and he is clinically well. Initially had him on Zosyn but this was stopped and he was monitored off antibiotics for at least 24 hours without issues. Procalcitonin was checked and negative. Cont oseltamivir. (2) Influenza A: Cont tamiflu and supportive care as needed. (3) Elevated troponin: Suspect related to demand ischemia related to sepsis and atrial fibrillation with RVR. Troponin was trended and did not show rise, improving with therapy. Ther ewas no ischemic change on EKG and no symptoms of chest pains or other symptoms that would suggest ACS during his hospital stay. He has a known h/o chronic atrial fibrillation for 20 years and has been on Xarelto and metoprolol long-term. He is open to establishing care with a local drop forger helper. No history of heart disease. Echo revealed moderate concentric left ventricular hypertrophy with normal left ventricular wall motion. Ejection fraction is 55 to 60%. Aortic leaflets are moderately calcified and there is moderate aortic stenosis and trivial aortic insufficiency. Mild mitral regur gitation and mild tricuspid regurgitation also seen. Right ventricular systolic pressure was moderately elevated at 40 to 50 mmHg. Recommend outpatient referral to [facility] to establish care. (4) Type 2 diabetes mellitus: A1C recently reflects good outpatient control. Was on basal bolus insulin during this admission and at goal. Transitioned back to his oral regimen at discharge. (5) Atrial fibrillation: Suspect RVR related to underlying sepsis - improved with IV fluid hydration although still has some malaise from flu which is expected and tachycardia in the low 100s. He was given Lopressor 25mg q6hrs with improvement in heart rate to 88 on day of discharge. Will double outpatient Toprol dose for the time being. Continue anticoagulation as taken outpatient (Xarelto) (6) Hypertension: restart lisinopril, initially held on admission in setting of sepsis. Some worsening blood pressure requiring additional lisinopril. Will double his outpatient dose and follow-up with primary care physician within 1-2 weeks for recheck and follow-up labwork as needed after changes. (7) Microscopic hematuria: Pt denies gross hematuria - MH seen on UA. Will defer work-up to outpatient. (8) DVT prophylaxis: Xarelto Full Code Dispo-to home in stable condition. Nurys Faulkner DO [facility] Hospitalist Total Time Total Time Spent Total Time Spent (In Minutes): 60 Discharge Plan Discharge Items Patient Disposition: Home - Self-Care Reason For Visit: FEVER, WEEZING, SOB, DR REFERRED Discharge Diagnosis: Sepsis 2/2 infuenza A Atrial fibrillation with rapid ventricular response Elevated troponin 2/2 demand ischemia Hypertension Activity: Resume your previous activity Non-emergency contact: Primary Care Provider Call non-emergency contact if: you have any medication questions, your symptoms worsen, your pain is not controlled, your pain is worsening, your pain is unusual for you, your pain is concerning for you and you have a fever Follow-up/Referrals: Nic Durbin MD [Primary Care Provider] - (Date & Time 07/19/2021 10:20 AM Provider Pankaj Obregon MD [facility] ) Diet: Carb Consistent or DM2 and Heart Healthy Addtl Attending Provider Instructions: Please take all medications as instructed on discharge as below. Please note that your Toprol and lisinopril have both been doubled. As a result of this you will need to follow-up with your primary care doctor within 1 week of discharge to ensure your vital signs are stable and blood work may need to be done at that time. Additionally, it is recommended that you establish care with an outpatient drop forger helper. A referral to cardiology may be placed at this time. Please continued oseltamivir to complete the course for flu and avoid interactions with young children or people with compromised immune systems as you are contagious until your symptoms improve. It was a pleasure taking care of you! Please call if you have any questions or problems. You can reach a [facility] hospitalist on duty at [facility] 24 hours a day by calling [phone]. Take care of yourself. Nurys Faulk[facility] Pending Studies at Discharge: No Stand-Alone Forms: My [facility] Medications and DC Order Prescriptions: New oseltamivir [Tamiflu] 75 mg Capsule 75 mg PO BID Qty: 6 RF: 0 Continued metformin 500 mg Tablet 1,000 mg PO BID RF: 0 glimepiride 1 mg Tablet 1 mg PO QAM RF: 0 Januvia 100 mg Tablet 100 mg PO DAILY RF: 0 Xarelto 20 mg Tablet 20 mg PO QDD RF: 0 Farxiga 10 mg Tablet 10 mg PO DAILY RF: 0 Changed metoprolol succinate 50 mg Tablet Extended Release 24 Hr 50 mg PO BID Qty: 60 RF: 0 lisinopril 10 mg Tablet 20 mg PO QDD Qty: 60 RF: 0 Discharge Orders: Discharge Order (Routine); Ordered 07/13/21 Ordered By: Nurys Faulkner Admission Data Admit Date/Time: 07/11/21 13:44 Attending Provider: Nurys Faulkner Admit Provider: Nurys Faulkner Primary Care Provider: Nic Durbin Other Providers: Nurys Faulkner
== END 2021-07-13 14:49 | disposition home or self-care (01) | DRG 872 ==
LOC: ED 10:47 → 2E 13:44

== ENCOUNTER 2024-05-31 12:02 | Inpatient (IN) ==
--- OUTSIDE RECORDS SUMMARY | 2024-05-31 12:10 | External Medical Summary | Summary of Care ---
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 180 Capsule 3 4 Active Rivaroxaban 20 MG Oral Tablet (Xarelto) Take 1 tablet by mouth daily with dinner 90 Tablet 3 4 Active amLODIPine Besylate 5 MG Oral Tablet (Norvasc)Indicati ons:HTN, goal below 130/80 TAKE 1 TABLET BY MOUTH EVERY DAY IN THE MORNING 90 Tablet 3 4 Active Lisinopril 30 MG Oral TabletIndications :Type 2 diabetes mellitus with hemoglobin A1c goal of less than 8.0% (HCC) Take 1 Tablet by mouth in the morning. 90 Tablet 3 4 Active SITagliptin Phosphate 100 MG Oral Tablet (Januvia) Take 1 Tablet by mouth in the morning. 90 Tablet 3 4 Active Dapagliflozin Propanediol 10 MG Oral Tablet (Farxiga) Take 1 tablet by mouth daily 90 Tablet 3 4 Active metFORMIN HCl 500 MG Oral Tablet (Glucophage) Take 2 Tablets by mouth in the morning and 2 Tablets before bedtime. 360 Tablet 3 4 Active Glimepiride 1 MG Oral Tablet (Amaryl) Take 1 Tablet by mouth in the morning. with the first main meal of the day for diabetes. 90 Tablet 3 4 Active Cetirizine HCl 10 MG Oral Tablet (ZyrTEC) Take 1 Tablet by mouth in the morning. 90 Tablet 3 4 Active Fluticasone Propionate 50 MCG/ACT Nasal Suspension (Flonase) Administer 2 Sprays into each nostril in the morning. 16 g 1 4 Active documented as of this encounter (statuses as of 04/07/2024) Active Problems Problem Noted Date Diagnosed Date Chronic kidney disease, stage 3a 12/24/2023 Overview: Per CKD protocol Hx of actinic keratosis 10/16/2022 Overview (10/16/2022): actinic keratoses (Efudex scalp 07/06) Hx of nonmelanoma skin cancer 11/22/2021 Overview (01/25/2022): squamous cell carcinoma (posterior vertex of scalp 02/02), basal cell carcinoma (R lateral cheek/stephenson region 12/02, R angle of mandible 02/02), at least Bowenoid AK (central vertex of scalp 12/02) Chronic atrial fibrillation 04/25/2021 Type 2 diabetes mellitus wit h hemoglobin A1c goal of less than 8.0% 05/31/2016 documented as of this encounter (statuses as of 04/07/2024) Resolved Problems Problem Noted Date Diagnosed Date Resolved Date Atrial fibrillation 05/31/2016 11/21/19 24 Microalbuminuria 05/31/2016 10/26/2021 documented as of this encounter (statuses as of 04/07/2024) Immunizations Name Administration Dates Next Due COVID-19 mRNA, LNP-s, No Pre serve, 2-Dose Series (Buzz360) 07/23/2020,06/25/2020 COVID-19, MRNA-LNP, PF, 50 M CG/0.5 mL, 12 YRS AND ABOVE, IM (MODERNA-Spikevax) 03/19/2023 Pneumococcal Conjugate Vacc, 13 Valent (Prevnar) 11/23/2014 Pneumococcal Polysaccharide PPV23 (Pneumovax) 11/07/2016 RSV Vac., Recomb, Adjuvant, PF,0.5 Ml (Arexvy) 05/15/2023 Season Influenza, Quad, PF, Adjuvanted, 65+ Yrs, IM (FLUAD) 02/25/2020 Seasonal Influenza Virus Vac cine, Unspecified Formulation 03/22/2015,02/16/2014 Seasonal Influenza, PF, 6 M & above, IM , (FluLaval or Fluzone) 03/26/2018 03/26/2019 Seasonal Influenza, Quadriva lent Hd (Fluzone Hd) 03/19/2023,05/01/2022,04/25/2021 Seasonal Influenza, Trivalen t, Adjuvanted, 65+ YRS, PF, (Fluad) 02/24/2019 TD - Tetanus/Diptheria (ADULT) 02/16/2014 TDAP (age 10 and older)(Boostrix) 05/15/2023 Varicella Zoster Vaccine (Adult) 01/19/2014 documented as of this encounter Social History Tobacco Use Types Packs/Day Years Used Date Smoking Tobacco: Some Days Cigars Passive Smoke Exposure: Never Smokeless Tobacco: Never Alcohol Use Standard Drinks/Week Comments Yes 0 (1 standard drink = 0.6 oz pur e alcohol) PHQ-2 Answer Date Recorded PHQ Adult Total Score 0 11/21/2023 Hunger Vital Sign Answer Date Recorded Within the past 12 months, y ou worried that your food would run out before you got the money to buy more. Never true 11/21/19 24 Within the past 12 months, t he food you bought just didn't last and you didn't have money to get more. Never true 11/21/2023 Childcare Answer Date Recorded Do you feel overwhelmed with taking care of a child, family member or friend? No 11/21/2023 Does your family need help f inding childcare? (Household - for ages 0-17 years) Not on file 11/21/2023 Clothing Answer Date Recorded Have you been unable to get clothing when it was really needed? No 11/21/2023 Is your family able to get c lothes or diapers when needed? (Household - for ages 0-17 years) Not on file 11/21/2023 Personal Safety Answer Date Recorded Do you feel unsafe or have concerns for your saf ety? No 11/21/2023 Do you have concerns for you r family's safety? (Household - for ages 0-17 years) Not on file 11/21/2023 Utilities Answer Date Recorded Do you have trouble paying y our heating, water, or electric bill? No 11/21/2023 Is your family able to pay t he heat, water, or electric bill? (Household - for ages 0-17 years) Not on file 11/21/2023 Does your family have access to good internet? (Household - for ages 0-17 years) Not on file 11/21/2023 Employment Status Answer Date Recorded Are you unemployed or without regular income? No 11/21/2023 Does the household have a [facility] source [facility] income? (Household - for ages 0-17 years) Not on file 11/21/2023 Social Connections Answer Date Recorded How often do you feel lonely or isolated from th ose around you? Never 11/21/2023 Financial Resource Strain Answer Date R ecorded Do you have any trouble payi ng for your medications, or do you think you might in the future? No 11/21/2023 Does your family have troubl e paying for medicine? (Household - for ages 0-17 years) Not on file 11/21/2023 Transportation Needs Answer Date Record ed Do you have trouble getting a ride to medical visits or work? (Adult - for ages 18 years and over) Not on file 11/21/2023 Does your family have a hard time getting a ride to doctors visits? (Household - for ages 0-17 years) Not on file 11/21/2023 Has lack of transportation k ept you from medical appointments, meetings, work, or from getting things needed for daily living? Check all that apply. No 11/21/2023 Do you (or your family) have trouble finding or paying for a ride (transportation)? (Household - for ages 0-17 years) Not on file 11/21/2023 Housing Stability Answer Date Recorded Do you currently live in a s helter or have no steady place to sleep at night? No 11/21/2023 Do you think you are at risk of becoming homeless? (Adult - for ages 18 years and over) Not on file 11/21/2023 Does your family worry about paying for your home or becoming homeless? (Household - for ages 0-17 years) Not on file 0 11/21/2023 Are you homeless or worried that you might be in the future? No 11/21/2023 Are you (or your family) modesto eless or worried that you might be in the future? (Household - for ages 0-17 years) Not on file Food Insecurity Answer Date Recorded Do you need food for this week? No 11/21/2023 Are you able to get enough f ood for your family? (Household - for ages 0-17 years) Not on file 11/21/2023 Does your family need food t his week? (Household - for ages 0-17 years) Not on file 11/21/2023 Do you always have enough fo od for your family? (Household - for ages 0-17 years) Not on file 11/21/2023 Sex and Gender Information Value Date Recorded Sex Assigned at Male 02/14/2022 8:05 AM EDT Legal Sex Male 7:07 AM EDT Gender Identity Male 02/14/2022 8:05 AM EDT Sexual Orientation Straight 02/24/2019 7: 27 AM EDT documented as of this encounter Plan of Treatment Upcoming Encounters Date Type Department Care Team (Late st Contact Info) Description 04/24/2024 7:40 AM EST Office Visit Dermatology, Bo[facility] Thomas [address] [phone] Hilary Faith PA-C [address] [place] [address] [place] [phone] 06/16/2024 7:40 AM EST Office Visit Family Practice, Boaz Zhu [address] [phone] Nic Durbin MD [address] [place] [address] Scheduled Orders Name Type Priority Associated Diagnoses Orde r Schedule MYCODE SUBSEQUENT ADULT Lab Routine [facility] Other*[id number] Every 6 Months for 2 Occurrences starting 04/07/2024 until 04/27/2025 Health Maintenance Due Date Last Done Comments DISCUSS TOBACCO CESSATION (REFER TO SMARTSET #3291) 1945 CKD PHOS USE SMARTSET 67603 09/12/1963 Adult Wellness Visit 09/12/2011 COVID-19 Vaccine ( season) 2024 03/19/2023, 03/29/2021, 07/23/2020, Additional history exists Influenza Vaccine (FLU shot) (#1) 2024 03/19/2023, 05/01/2022, 04/25/2021, Additional history exists B-12 05/18/2024 05/18/2023, 04/13, 04/21/2021, Additional history exists GFR 09/21/2024 03/24/2024, 07/0 01/2024, 05/18/2023, Additional history exists HbA1c 09/21/2024 03/24/2024, 07/0 01/2024, 05/18/2023, Additional history exists Albumin/Creatinine Ratio 11/19/2024 07 024, 10/24/2021, 08/20/2018, Additional history exists CKD HGB USE SMARTSET 69706 11/19/202411/19, 10/24/2021, 06/02/2020, Additional history exists Depression Screening 11/20/2024 11/21/2023 Diabetic Foot Exam 11/20/2024 11/21/2023, 1 05/26/2017, 05/25/2017 Diabetic Eye Exam 01/27/2025 01/28/2024, , 01/28/2024 (Done elsewhere), Additional history exists DTap/Tdap Vaccines (2 - Td or Tdap) 05/15/2033 05/15/2023, 02/16/2014 Zoster Vaccines Discontinued 01/19/2014 Pneumococcal Vaccine: 65+ Years Completed 11/07/2016, 11/23/2014 HPV (Gardasil) Vaccine Aged Out No lo nger eligible based on patient's age to complete this topic Hepatitis B Vaccine Aged Out No longe r eligible based on patient's age to complete this topic Hepatitis C Screening Discontinued MENINGOCOCCAL (MENACTRA/MENVEO) Aged Out No longer eligible based on patient's age to complete this topic documented as of this encounter Medical Devices Not on filedocumented as of this encounter Visit Diagnoses Diagnosis [facility] Other*[id number] documented in this encounter Advance Directives Documents on File Type Date Recorded 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
--- OUTSIDE RECORDS SUMMARY | 2024-05-31 12:10 | External Medical Summary | Summary of Care ---
Author Name Unknown Organization [facility] Address [address] [place] [address] Phone [phone] Care Team Providers Care Substation Electrician Name Role Phone Nic Durbin MD Primary Care Provider [phone]- [phone] Encounter Details Date Type Department Care Team (Late st Contact Info) Description 01/30/2024 Orders Only [facility] [address] [place] [address] Nic Durbin MD [address] [place] [address] Allergies No known active allergiesdocumented as of this encounter (statuses as of 01/30/2024) Medications Medication Sig Dispensed Refills Start Date End Date Status Metoprolol Succinate 50 MG Oral Capsule ER 24 Hour SprinkleIndications:P ermanent atrial fibrillation (HCC) Take 50 mg by mouth in the morning and 50 mg before bedtime. 180 Capsule 3 05/18/2023 Active Rivaroxaban 20 MG Oral Tablet (Xarelto) Take 1 tablet by mouth daily with dinner 90 Tablet 3 06/19/2023 Active amLODIPine Besylate 5 MG Oral Tablet (Norvasc)Indications: HTN, goal below 130/80 TAKE 1 TABLET BY MOUTH EVERY DAY IN THE MORNING 90 Tablet 3 10/03/2023 Active Lisinopril 30 MG Oral TabletIndications:Typ e 2 diabetes mellitus with hemoglobin A1c goal of less than 8.0% (HCC) Take 1 Tablet by mouth in the morning. 90 Tablet 3 11/21/2023 Active SITagliptin Phosphate 100 MG Oral Tablet (Januvia) Take 1 Tablet by mouth in the morning. 90 Tablet 3 12/19/2023 Active Dapagliflozin Propanediol 10 MG Oral Tablet (Farxiga) Take 1 tablet by mouth daily 90 Tablet 3 12/19/2023 Active metFORMIN HCl 500 MG Oral Tablet (Glucophage) Take 2 Tablets by mouth in the morning and 2 Tablets before bedtime. 360 Tablet 3 12/19/2023 Active Glimepiride 1 MG Oral Tablet (Amaryl) Take 1 Tablet by mouth in the morning. with the first main meal of the day for diabetes. 90 Tablet 3 12/19/2023 Active documented as of this encounter (statuses as of 01/30/2024) Active Problems Problem Noted Date Diagnosed Date Chronic kidney disease, stage 3a 12/24/2023 Overview: Per CKD protocol Hx of actinic keratosis 10/16/2022 Overview: actinic keratoses (Efudex scalp 07/06) Hx of nonmelanoma skin cancer 11/22/2021 Overview: squamous cell carcinoma (posterior vertex of scalp 02/02), basal cell carcinoma (R lateral cheek/stephenson region 12/02, R angle of mandible 02/02), at least Bowenoid [place] (central vertex of scalp 12/02) Chronic atrial fibrillation 04/25/2021 Type 2 diabetes mellitus wit h hemoglobin A1c goal of less than 8.0% 05/31/2016 documented as of this encounter (statuses as of 01/30/2024) Resolved Problems Problem Noted Date Diagnosed Date Resolved Date Atrial fibrillation 05/31/2016 11/21/19 24 Microalbuminuria 05/31/2016 10/26/2021 documented as of this encounter (statuses as of 01/30/2024) Immunizations Name Administration Dates Next Due COVID-19 mRNA, LNP-s, No Pre serve, 2-Dose Series ([employer]) 07/23/2020,06/25/2020 COVID-19, MRNA-LNP, 23-24, P F, 50 MCG/0.5 mL, 12 YRS AND ABOVE, IM (MODERNA-Spikevax) [...] No 11/21/2023 Does the household have a [facility] source [facility] income? (Household - for ages [...] Assigned at Male 02/14/2022 8:05 AM EDT Gender Identity Male 02/14/2022 8:05 AM EDT Sexual Orientation Straight 02/24/2019 7: 27 AM EDT Job Start Date Occupation Industry Not on file Not on file Not on file documented as of this encounter Plan of Treatment Upcoming Encounters Date Type Department Care Team (Late st Contact Info) Description 04/24/2024 7:40 AM EST [facility] [place] [address] [facility] [address] Hilary Faith PA-C [address] [place] [address] [place] [id number] 06/16/2024 7:40 AM EST Office Visit Family Practice, [place] [address] [facility] [place] [id number] Nic [facility]urbin [facility] [address] [facility] [place] [address] Health Maintenance Due Date Last Done Comments DISCUSS TOBACCO CESSATION (REFER TO SMARTSET #3291) 1945 CKD PHOS USE SMARTSET 78058 09/12/1963 Adult Wellness Visit 09/12/2011 COVID-19 Vaccine ( season) 2024 03/19/2023, 03/29/2021, 07/23/2020, Additional history exists Influenza Vaccine (FLU shot) (#1) 2024 03/19/2023, 05/01/2022, 04/25/2021, Additional history exists B-12 05/18/2024 05/18/2023, 04/13, 04/21/2021, Additional history exists GFR 05/22/2024 11/20/2023, 0 09/2023, 10/30/2022, Additional history exists HbA1c 05/22/2024 11/20/2023, 0 09/2023, 10/30/2022, Additional history exists Albumin/Creatinine Ratio 11/19/2024 024, 10/24/2021, 08/20/2018, Additional history exists CKD HGB USE SMARTSET 06031 11/19/202411/19, 10/24/2021, 06/02/2020, Additional history exists Depression Screening 11/20/2024 11/21/2023 Diabetic Foot Exam 11/20/2024 11/21/2023, 1 05/26/2017, 05/25/2017 Diabetic Eye Exam 01/29/2025 01/28/2024, (Done elsewhere), 01/25/2023, Additional history exists DTap/Tdap Vaccines (2 - [...] Not on filedocumented as of this encounter Procedures Procedure Name Priority Date/Time Associated Diagnosis Comments DIABETIC EYE EXAM Routine 01/28/2024 documented in this encounter Results * DIABETIC EYE EXAM (01/28/2024) 01/28/2024 History Per Patient OTHER OUTSIDE LAB (SEE SCANNED REPORT) documented in this encounter Advance Directives Documents on File Type Date 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
--- OUTSIDE RECORDS SUMMARY | 2024-05-31 12:10 | External Medical Summary | Summary of Care ---
Author Name Unknown Organization [facility] Address [address] [place] [address] Phone [phone] Care Team Providers Care Supervisor Reclamation Name Role Phone Nic Durbin MD Primary Care Provider [phone] Reason for Visit * Reason Comments Acute Pt here today for co ngestion and cough for about a month Encounter Details Date Type Department Care Team (Late st Contact Info) Description 02/07/2024 11:40 AM EDT Office Visit [facility] [address] [place] [address] Shayla Gordon MD [address] [place] [address] Chronic rhinitis*; Risk and functional assessment; Cough, unspecified type; Type 2 diabetes mellitus with hemoglobin A1c goal of less than 8.0% (HCC); Bronchitis, complicated; Chronic atrial fibrillation (HCC) Allergies No known active allergiesdocumented as of this encounter (statuses as of 02/07/2024) Medications Medication Sig Dispensed Refills Start Date End Date Status Metoprolol Succinate 50 MG Oral Capsule ER 24 Hour SprinkleIndications :Permanent atrial fibrillation (HCC) Take 50 mg by mouth in the morning and 50 mg before bedtime. 180 Capsule 3 05/18/2023 Active Rivaroxaban 20 MG Oral Tablet (Xarelto) Take 1 tablet by mouth daily with dinner 90 Tablet 3 06/19/2023 Active amLODIPine Besylate 5 MG Oral Tablet (Norvasc)Indication s:HTN, goal below 130/80 TAKE 1 TABLET BY MOUTH EVERY DAY IN THE MORNING 90 Tablet 3 10/03/2023 Active Lisinopril 30 MG Oral TabletIndications:T ype 2 diabetes mellitus with hemoglobin A1c goal [...] for diabetes. 90 Tablet 3 12/19/2023 Active Amoxicillin-Pot Clavulanate 500-125 MG Oral Tablet (Augmentin) Take 1 Tablet by mouth in the morning and 1 Tablet before bedtime. Do all this for 10 days. 20 Tablet 02/07/2024 02/17/2024 Active Cetirizine HCl 10 MG Oral Tablet (ZyrTEC) Take 1 Tablet by mouth in the morning. 90 Tablet 3 02/07/2024 Active Fluticasone Propionate 50 MCG/ACT Nasal Suspension (Flonase) Administer 2 Sprays into each nostril in the morning. 16 g 1 02/07/2024 Active documented as of this encounter (statuses as of 02/07/2024) Active Problems Problem Noted Date Diagnosed Date [...] as of this encounter (statuses as of 02/07/2024) Resolved Problems Problem Noted Date Diagnosed Date Resolved Date Atrial fibrillation 05/31/2016 11/21/19 24 Microalbuminuria 05/31/2016 10/26/2021 documented as of this encounter (statuses as of 02/07/2024) Immunizations Name Administration Dates Next Due COVID-19 mRNA, LNP-s, No Pre serve, 2-Dose Series (SGB) 07/23/2020,06/25/2020 COVID-19, MRNA-LNP, 23-24, P F, 50 [...] No 11/21/2023 Does the household have a re gular source of income? (Household - for ages [...] on file documented as of this encounter Last Filed Vital Signs Vital Sign Reading Time Taken Comments Blood Pressure 132/80 02/07/2024 11:36 AM EDT Pulse 82 02/07/2024 11:36 AM EDT Temperature 36.2 C (97.1 F) 02/07/2024 11:36 AM E DT Respiratory Rate 18 02/07/2024 11:36 AM EDT Oxygen Saturation 96% 02/07/2024 11:36 AM EDT Inhaled Oxygen Concentration - - Weight 84.8 kg (187 lb) 02/07/2024 11:36 AM EDT Height - - Body Mass Index 28.43 11/21/2023 7:35 AM EDT documented in this encounter Patient Instructions * Patient Instructions* Shayla Gordon MD - 02/07/2024 11:39 AM EDT Augmentin twice daily for 7-10 days And flonase daily first 5 days and then as needed daily for runny nose Continue zyrtec 10 mg daily for now Patient Instructions - Fall Prevention (This education is for all patients over 65 regardless of symptoms) Remember to take your current medications as prescribed. In order to prevent falls, you are encouraged to: Exercise Utilize assistive/adaptive devices Avoid multifocal lenses when walking Avoid hazards in home Maintain a regular toileting schedule Any questions please contact our office. Preventing Falls in the Home (This education is for all patients over 65 regardless of symptoms) As you get older, falls are more likely. Thats because your reaction time slows. Your muscles and joints may also get stiffer, making them less flexible. Illness, medications, and vision changes can also affect your balance. A fall could leave you unable to live on your own. To make your home safer, follow these tips: Floors Put nonskid pads under area rugs Remove throw rugs Replace worn floor coverings Tack carpets firmly to each step on carpeted stairs. Put nonskid strips on the edges of uncarpeted stairs Keep floors and stairs free of clutter and cords Arrange furniture so there are clear pathways Clean up any spills right away Bathrooms Install grab bars in the tub or shower Apply nonskid strips or put a nonskid rubber mat in the tub or shower Sit on a bath chair to bathe Use bathmats with nonskid backing Lighting Keep a flashlight in each room Put a nightlight along the pathway between the bedroom and the bathroom [employer] Patient Education Copyright 2009 - 2010 [employer] except where otherwise noted Preventing Falls: Exercises to Improve Balance, Flexibility, Strength, and Staying Power (This education is for all patients over 65 regardless of symptoms) Certain types of exercises may help make you less likely to fall. Try the ones below. Or do other exercises that your healthcare provider suggests. Depending on your health, you may need to start slowly. Dont let that stop you. Even small amounts of exercise can help you. Be sure to talk to yourhealthcare provider before starting any exercise program. Improve Balance Many types of exercise can help improve balance. Jose chi and yoga are good examples. Heres another one to try. You can do it anytime and almost anywhere. Stand next to a counter or solid support. Push yourself up onto your tiptoes. Hold for 5 seconds. If you start to lose your balance, hold on to the counter. Rest and repeat 5 times. Work up to holding for 20 to 30 seconds, if you can. Increase Flexibility Being more flexible makes it easier for you to move around safely. Try exercises like the seated hamstring stretch. Sit in a chair and put one foot on a stool. Straighten your leg and reach with both hands down either side of your leg. Reach as far down your leg as you can. Hold for about 20 seconds. Go back to the starting position. Then repeat 5 times. Switch legs. Build Strength Resistance exercises help build strength. You can do them without equipment. Or you can use weights, elastic bands, or special machines. One such exercise is called the biceps curl. You can hold a 1 pound weight or even a can of soup. Do this exercise at least 3 times a week. Strive for everyday. Sit up straight in a chair. Keep your elbow close to your body and your wrist straight. Bend your arm, moving your hand up to your shoulder. Then slowly lower your arm. Repeat 5 times. Switch to the other arm. Build Your Staying Power Aerobic exercises make your heart and lungs stronger so you can keep moving longer. Walking and swimming are two of the best types of exercises you can do. Using a stationary bike is great, too. Find an aerobic exercise that you enjoy. Start slowly and build up. Even 5 minutes is helpful. Aimfor a goal of 30 minutes, at least 3 times a week. You dont have to do 30 minutes in one session. Break it up and walk a little throughout the day. More Helpful Tips Start easy. Slowly work up to doing more. Talk with your healthcare provider about the best exercises for you. Call senior centers or health clubs about exercise programs. If needed, have a family member watch you walk every so often to check your stability. Exercise with a friend. Choose an activity you both enjoy. Try exercises that you can do anytime, anywhere. Here are two examples. Have someone with you when you first try these: Practice walking by placing one foot right in front of the other. Stand up and sit down 10 times. Repeat this throughout the day. [employer] Patient Education Copyright 2008 [employer] except where otherwise noted. Preventing Falls: Moving Safely Using a Cane or Walker (This education is for all patients over 65 regardless of symptoms) Keep the cane away from your feet so you dont trip. A walking aid, such as a cane or walker, can help you stay more independent and avoid falls. Remember to keep your walking aid within easy reach when youre in a chair or in bed. And learn how to use it safely so you dont injure yourself. Using a Cane If you have a stronger side, hold the cane on that side. Get your balance. Move the cane and your weaker leg forward. Support your weight on both the cane and your weaker side. Step with your stronger leg. Start again from step 1. If youre using a folding walker, be sure you know how to lock it open. Check that its locked open before each use. Using a Walker Roll the walker (or lift it, if youre using one without wheels) forward about 12 inches. Step forward with your weaker leg first. Use the walker to help keep your balance. Bring your other foot forward to the center of the walker. Start again from step 1. Helpful Tips Check with your healthcare provider about the right walking aid to use. Ask about a walker with a seat attached. Check the tips of your cane or walker to make sure they have nonskid covers. Move slowly from room to room. Dont marquez. Sit down to get dressed. Use a julian pack or backpack to keep your hands free. Get help for jobs that mean climbing, even on a stepstool. [employer] Patient Education Copyright 2008 - 2010 [employer] except where otherwise noted. Treating Urinary Incontinence in Men (This education is for all patients over 65 regardless of symptoms) You can't always control the release of urine. You may leak urine. Or you may not be able to hold your urine until you can get to a bathroom. This is called urinary incontinence. The problem can be managed. Talk to your doctor about your treatment options. Taking Medications Prescription medications may help you. They may: Help the sphincter to work better. (This is the muscle that closes to keep urine from leaking out of the bladder.) Help stop the bladder from agata too often to push urine out. Help the bladder muscles contract with more force. Help relax the sphincter muscle and allow urine to flow more freely. Making Changes to Your Routine Certain changes in your daily routine may help. These include: Avoiding caffeine and alcohol. Using timed voiding. This is following a schedule for drinking fluids and urinating. Doing Kegel exercises daily. These exercises involve tightening the muscles in your sphincter and around your bladder to help strengthen them. Your doctor can explain how to do them. Using a Catheter A catheter is a narrow tube that is inserted through the urethra into the bladder. It drains urine.A condom catheter covers the penis. It channels urine into a collection bag. It is worn most of thetime. Intermittent catheterization means inserting a catheter to drain the bladder, then removing it. This is done on a regular schedule. Having Surgery If other options don't work, surgery may be recommended. If surgery is an option, your healthcare provider can discuss it with you and explain its risks and benefits. Healing After Prostate Surgery Surgery on the prostate gland can cause incontinence. Most often, the incontinence is only for a short time. It clears up when healing is complete. Very rarely, prostate surgery can result in permanent incontinence. documented in this encounter Progress Notes * Shayal Gordon MD - 02/07/2024 12:36 PM EDT Subjective Pawan Majano is a 78 year old male. Chief Complaint Patient presents with Acute Pt here today for congestion and cough for about a month HPI: Her for chronic cough , seems more persistent throughout the day Shows runny nose drainage all the time Does not take any OTC Denies fever, wheezing, CP, SOB Showed bronchi diffusely Known afib, CKD PMH: Patient Active Problem List Diagnosis Type 2 diabetes mellitus with hemoglobin A1c goal of less than 8.0% (HCC) Chronic atrial fibrillation (HCC) Hx of nonmelanoma skin cancer Hx of actinic keratosis Chronic kidney disease, stage 3a (HCC) Current Outpatient Medications Medication Sig Dispense Refill Metoprolol Succinate 50 MG Oral Capsule ER 24 Hour Sprinkle Take 50 mg by mouth in the morning and 50 mg before bedtime. 180 Capsule 3 Rivaroxaban 20 MG Oral Tablet (Xarelto) Take 1 tablet by mouth daily with dinner 90 Tablet 3 amLODIPine Besylate 5 MG Oral Tablet (Norvasc) TAKE 1 TABLET BY MOUTH EVERY DAY IN THE MORNING 90 Tablet 3 Lisinopril 30 MG Oral Tablet Take 1 Tablet by mouth in the morning. 90 Tablet 3 SITagliptin Phosphate 100 MG Oral Tablet (Januvia) Take 1 Tablet by mouth in the morning. 90 Tablet3 Dapagliflozin Propanediol 10 MG Oral Tablet (Farxiga) Take 1 tablet by mouth daily 90 Tablet 3 metFORMIN HCl 500 MG Oral Tablet (Glucophage) Take 2 Tablets by mouth in the morning and 2 Tablets before bedtime. 360 Tablet 3 Glimepiride 1 MG Oral Tablet (Amaryl) Take 1 Tablet by mouth in the morning. with the first main meal of the day for diabetes. 90 Tablet 3 Amoxicillin-Pot Clavulanate 500-125 MG Oral Tablet (Augmentin) Take 1 Tablet by mouth in the morning and 1 Tablet before bedtime. Do all this for 10 days. 20 Tablet 0 Cetirizine HCl 10 MG Oral Tablet (ZyrTEC) Take 1 Tablet by mouth in the morning. 90 Tablet 3 Fluticasone Propionate 50 MCG/ACT Nasal Suspension (Flonase) Administer 2 Sprays into each nostril in the morning. 16 g 1 No current facility-administered medications for this visit. No past medical history on file. No past surgical history on file. Review of patient's allergies indicates: No Known Allergies No family history on file. No family status information on file. Social History Socioeconomic History Marital status: Spouse name: Not on file Number of children: Not on file Years of education: Not on file Highest education level: Not on file Occupational History Not on file Tobacco Use Smoking status: Some Days Types: Cigars Passive exposure: Never Smokeless tobacco: Never Vaping Use Vaping status: Never Used Substance and Sexual Activity Alcohol use: Yes Drug use: No Sexual activity: Yes Partners: Female Other Topics Concern Not on file Social History Narrative Not on file Social Determinants of Health Financial Resource Strain: Low Risk (11/21/2023) Financial Resource Strain Do you have any trouble paying for your medications, or do you think you might in the future? (Adult - for ages 18 years and over): No Does your family have trouble paying for medicine? (Household - for ages 0-17 years): Not on file Food Insecurity: No Food Insecurity (11/21/2023) Food Insecurity Do you need food for this week? (Adult - for ages 18 years and over): No Are you able to get enough food for your family? (Household - for ages 0-17 years): Not on file Does your family need food this week? (Household - for ages 0-17 years): Not on file Do you always have enough food for your family? (Household - for ages 0-17 years): Not on file Transportation Needs: No Transportation Needs (11/21/2023) Transportation Needs Do you have trouble getting a ride to medical visits or work? (Adult - for ages 18 years and over):Not on file Does your family have a hard time getting a ride to doctors visits? (Household - for ages 0-17 years): Not on file Has lack of transportation kept you from medical appointments, meetings, work, or from getting things needed for daily living? Check all that apply. (Adult - for ages 18 years and over): No Do you (or your family) have trouble finding or paying for a ride (transportation)? (Household - for ages 0-17 years): Not on file Social Connections: Socially Integrated (11/21/2023) Social Connections How often do you feel lonely or isolated from those around you? (Adult - for ages 18 years and over): Never Housing Stability: Low Risk (11/21/2023) Housing Stability Do you currently live in a chcf or have no steady place to sleep at night? (Adult - for ages 18 years and over): No Do you think you are at risk of becoming homeless? (Adult - for ages 18 years and over): Not on file Does your family worry about paying for your home or becoming homeless? (Household - for ages 0-17 years): Not on file Are you homeless or worried that you might be in the future? (Adult - for ages 18 years and over): No Are you (or your family) homeless or worried that you might be in the future? (Household - for ages0-17 years): Not on file Review of Systems Constitutional: Positive for fatigue. Negative for activity change, appetite change, chills, diaphoresis, fever and unexpected weight change. HENT: Positive for congestion, postnasal drip, rhinorrhea and sinus pressure. Negative for ear painand facial swelling. Respiratory: Positive for cough. Negative for chest tightness, shortness of breath and wheezing. Cardiovascular: Negative for chest pain, palpitations and leg swelling. Gastrointestinal: Negative for abdominal distention and abdominal pain. Allergic/Immunologic: Positive for environmental allergies. Neurological: Positive for headaches. Psychiatric/Behavioral: Positive for sleep disturbance. Negative for agitation and behavioral problems. Objective BP 132/80 | Pulse 82 | Temp 36.2 C (97.1 F) (Tympanic) | Resp 18 | Wt 84.8 kg (187 lb) | SpO2 96% | BMI 28.43 kg/m | BSA 2.02 m Physical Exam Constitutional: General: He is not in acute distress. Appearance: Normal appearance. He is not ill-appearing, toxic-appearing or diaphoretic. HENT: Head: Normocephalic and atraumatic. Nose: Congestion and rhinorrhea present. Eyes: Extraocular Movements: Extraocular movements intact. Cardiovascular: Rate and Rhythm: Normal rate. Rhythm irregular. Pulmonary: Effort: Pulmonary effort is normal. No respiratory distress. Breath sounds: No stridor. Rhonchi present. No wheezing or rales. Chest: Chest wall: No tenderness. Musculoskeletal: Right lower leg: No edema. Left lower leg: No edema. Neurological: General: No focal deficit present. Mental Status: He is alert and oriented to person, place, and time. Psychiatric: Behavior: Behavior normal. ASSESSMENT/PLAN: Chronic rhinitis (Primary) Risk and functional assessment Cough, unspecified type Type 2 diabetes mellitus with hemoglobin A1c goal of less than 8.0% (HCC) Bronchitis, complicated Chronic atrial fibrillation (HCC) Other orders - Amoxicillin-Pot Clavulanate 500-125 MG Oral Tablet (Augmentin); Take 1 Tablet by mouth in the morning and 1 Tablet before bedtime. Do all this for 10 days. - Cetirizine HCl 10 MG Oral Tablet (ZyrTEC); Take 1 Tablet by mouth in the morning. - Fluticasone Propionate 50 MCG/ACT Nasal Suspension (Flonase); Administer 2 Sprays into each nostril in the morning. Follow Up: Return in about 2 weeks (around 02/21/2024) for Clinic Visit. | For: Clinic Visit Augmentin twice daily for 7-10 days And flonase daily first 5 days and then as needed daily for runny nose Continue zyrtec 10 mg daily for now F/u in 2 wks Shayla Gordon MD documented in this encounter Nursing Notes * Citlaly Singleton LPN - 02/07/2024 11:36 AM EDT Chief Complaint Patient presents with Acute Pt here today for congestion and cough for about a month documented in this encounter Plan of Treatment Upcoming Encounters Date Type Department Care Team (Late st Contact Info) Description 02/21/2024 10:20 AM EDT Office Visit [address] [place] [phone] Shayla Gordon MD [address] [place] [address] 04/24/2024 7:40 AM EST Office Visit Dermatology[address] [place] [address] Hilary Faith PA-C [address] [place] [address] [place] [address] 06/16/2024 7:40 AM EST Office Visit [address] [place] [phone] Nic Durbin MD [address] [facility] [place] [id number] Health Maintenance Due Date Last Done Comments DISCUSS TOBACCO CESSATION (REFER TO SMARTSET #7030) 1945 CKD PHOS USE SMARTSET 78772 09/12/1963 Adult Wellness Visit 09/12/2011 COVID-19 Vaccine ( season) 2024 03/19/2023, 03/29/2021, 07/23/2020, Additional history exists Influenza Vaccine (FLU shot) (#1) 2024 03/19/2023, 05/01/2022, 04/25/2021, Additional history exists B-12 05/18/2024 05/18/2023, 04/13, 04/21/2021, Additional history exists GFR 05/22/2024 11/20/2023, 0 09/2023, 10/30/2022, Additional history exists HbA1c 05/22/2024 11/20/2023, 0 09/2023, 10/30/2022, Additional history exists Albumin/Creatinine Ratio 11/19/2024 07 024, 10/24/2021, 08/20/2018, Additional history exists CKD HGB USE SMARTSET 30365 11/19/202411/19, 10/24/2021, 06/02/2020, Additional history exists Depression Screening 11/20/2024 11/21/2023 Diabetic Foot Exam 11/20/2024 11/21/2023, 1 05/26/2017, 05/25/2017 Diabetic Eye Exam 01/27/2025 01/28/2024, (Done elsewhere), 01/25/2023, Additional history exists [...] as of this encounter Visit Diagnoses Diagnosis Chronic rhinitis- Primary Risk and functional assessment Screening for unspecified condition Cough, unspecified type Type 2 diabetes mellitus with hemoglobin A1c goal of less than 8.0% (HCC) Bronchitis, complicated Bronchitis, not specified as acute or chronic Chronic atrial fibrillation (HCC) Atrial fibrillation documented in this encounter Advance Directives Documents on File Type Date Recorded Patient 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
--- OUTSIDE RECORDS SUMMARY | 2024-05-31 12:10 | External Medical Summary | Summary of Care ---
Author Name Unknown Organization [facility] Address [address] [facility] [place] [address] Phone [phone] Care Team Providers Care Restorative Aide Name Role Phone Nic Durbin MD Primary Care Provider [phone]- [phone] Reason for Visit * Reason Comments Follow Up Pt here for yearly f ull skin exam. Hx of non-melanoma skin cancer. No concerns. Encounter Details Date Type Department Care Team (Late st Contact Info) Description 04/24/2024 7:40 AM EST [facility] [address] [place] [phone] Hilary Faith PA-C [address] [place] [address] [place] [address] Hx of nonmelanoma skin cancer*; Skin exam, screening for cancer; Scar condition and fibrosis of skin; Seborrheic keratosis; Actinic keratosis Allergies No known active allergiesdocumented as of this encounter (statuses as of 04/24/2024) Medications Metoprolol Succinate 50 MG Oral Capsule [...] the morning. 16 g 1 4 Active Fluorouracil 5 % External Cream (Efudex)Indicatio ns:Actinic keratosis Start May or 2024: apply thin layer to forehead and entire scalp 2x daily for 3 weeks, then please send photos through My Chart at the end of the treatment. 40 g 1 4 Active documented as of this encounter (statuses as of 04/24/2024) Active Problems Problem Noted Date Diagnosed Date [...] as of this encounter (statuses as of 04/24/2024) Resolved Problems Problem Noted Date Diagnosed Date Resolved Date Atrial fibrillation 05/31/2016 11/21/19 24 Microalbuminuria 05/31/2016 10/26/2021 documented as of this encounter (statuses as of 04/24/2024) Immunizations Name Administration Dates Next Due COVID-19 mRNA, LNP-s, No Pre serve, 2-Dose Series ([employer]) 07/23/2020,06/25/2020 COVID-19, MRNA-LNP, PF, 50 M CG/0.5 [...] AM EDT documented as of this encounter Patient Instructions * Patient Instructions* Hilary Faith PA-C - 04/24/2024 7:36 AM EST SUNSCREEN USE AND SUN PROTECTION: 1. The best protection is sun avoidance. Seek shade if you can, especially between 10am to 4pm (peak sun hours). 2. Use sunscreen with an SPF (Sun Protection Factor - the number on most sunscreen bottles) of 30 or more that protects from Ultraviolet A (UVA) and Ultraviolet B (UVB) wavelength light (strongly recommend SPF 50). This is referred to as broad spectrum sun protection because it protects from most wa velengths in both spectrums of UVA and UVB light. Unfortunately, even though the protection is broad it is not complete, therefore making sun avoidance the best protection. UVB and UVA have both beenimplicated in causing skin cancers. Older sunscreens only protected from UVB and sunscreens with added UVA protection should contain Titanium dioxide, Zinc oxide, or Avobenzone. Other oil free, non-comedogenic lotion with SPF 30 or greater is fine. 3. Use sun protection if outside for 15 minutes or more. Apply 20-30 minutes before going out and reapply every 1-2 hours. No sunscreen is truly water ''proof'' and it will wash away with sweat, swimming and rubbing. 4. Wear tightly woven, loose fitting (cooler) long sleeved clothing, UV-blocking sun glasses (eyes need protection as well) and wide-brimmed hatwear (no straw hats with holes because light still getsthrough). Strongly recommended *Neutrogena Pure and Free Baby SPF 60 (have separate face and body lotions) orCeraVe AM facial lotion (with SPF 30). If looking for non toxic alternatives-look for non-chloe particle zinc. Product examples; Think sport, Think baby, Mohini, Babo botanicalSimpleHoney, [place] Sou[place], [place] baby. "Baby" products can be used for all ages. documented in this encounter Progress Notes * Hilary Faith PA-C - 04/24/2024 7:40 AM EST SUBJECTIVE: History of Present Illness: Pawan Majano is a 78 year old male seen today for follow up of full skin exam. Previous office visit: 02/22/2023 Last attempted treatments include: NONE No new or changing lesions, per pt. 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 REVIEW OF SYSTEMS: SKIN: No other new or changing moles. HEME/LYMPH: No new or enlarging lumps or bumps. CONSTITUTIONAL: No nausea, vomiting, fevers, chills, diarrhea. No recent unintended weight loss, night sweats, appetite or malaise. RESP: negative MSK/EXT: Negative or as per HPI GI: negative CV: Negative or as per HPI Rest of systems are negative or as per HPI SKIN CANCER HX: squamous cell carcinoma (posterior vertex of scalp 02/02), basal cell carcinoma (R lateral cheek/stephenson region 12/02, R angle of mandible 02/02), at least Bowenoid AK (central vertex of scalp 12/02), actinic keratoses (Efudex scalp 07/06) Reviewed, same day as visit, 0 [facility] Dermatology lab work(s)/pathology report(s) as well as those sent by referring provider prior to seeing pt. MEDICA TIONS: Current Outpatient Medications Medication Sig Dispense Refill [...] the day for diabetes. 90 Tablet 3 Cetirizine HCl 10 MG Oral Tablet (ZyrTEC) Take 1 Tablet by mouth in the morning. 90 Tablet 3 Fluticasone Propionate 50 MCG/ACT Nasal Suspension (Flonase) Administer 2 Sprays into each nostril in the morning. 16 g 1 No current facility-administered medications for this visit. ALLERG IES: Patient has noknown allergies. OBJECT JADE: GEN: alert, no distress, appears oriented, pleasant, and cooperative. SKIN: Detailed exam of hair, face including lids and lips, neck, chest, abdomen, back, bilateral upper ext. (arm, hand, fingers), bilateral lower ext. (leg, foot, toes), palpation of scalp, fingernails, toenails, inguinal areas, groin (penis, scrotum and perineum), buttocks, and anus completed: 1. Scalp-9 pink/white non indurated scaly papules. 2. Central vertex of scalp-post inflammatory erythematous atrophic plaque. 3. R lateral cheek/stephenson region-post inflammatory erythematous vertical atrophic scar. 4. R angle mandible-post inflammatory erythematous vertical atrophic scar. 5. Face (L nasal sidewall)/neck/trunk/bilat arms-Many sharply defined, variegated brown, waxy flat papules with velvety to finely verrucous surfaces. ASSESS MENT/PLAN: 1. Actinic keratoses (x9) on scalp-Cryosurgery explained to the patient. Discussed risk of blistering, crusting, infection, scarring, reoccurrence of lesions, hypopigmentation, post inflammatory hyperpigmentation with pt prior to procedure. Verbal consent obtained. Time out called immediately prior to procedure and patient identification and site verified. Cryo therapy performed with Liquid Nitrogen via cryo spray unit to lesion (s) noted above. Location noted in physical exam. Post op course explained. Plan on field therapy over cryotherapy as treatment for lesions. Explained in office and pt givenwritten sheet with information on medication, instructions on treatment, appropriate response to medication, and tips on symptom relief. Pt will send photos through My Chart at the end of therapy forpost treatment instructions. 2. Scar s/p squamous cell carcinoma on central vertex of scalp-No sign of recurrence. 3. Scar s/p basal cell carcinoma on R lateral cheek/stephenson region-No sign of recurrence. 4. Scar s/p basal cell carcinoma on R angle mandible-No sign of recurrence. 5. Seborrheic/Benign Keratosis(-es) on face (L nasal sidewall)/neck/trunk/bilat arms-no tx needed, pt given reassurance. Skin cancer brochure given at previous office visit (pt declined need for another) and ABCDE's discussed with patient. Annual full body skin examination (unless I recommended otherwise), self-examination, and sun protection (SPF 30+ daily to sun exposed areas, with reapplication every 1-2 hours when out in sun for long periods of time) advised and discussed. Recommended sooner follow up for new or changing lesions. These changes include rapid enlargement, changes in color or shape or symptoms, bleeding, or other concerns. The common features and behavior of non-melanoma skin cancers (e.g. BCC/SCC) as well as the ABCDEs and ugly duckling features of melanoma were also reviewed. Patient alone today. Photo(s) of #1-5 taken, pt verbally consented to having photo(s) taken. Follow-up: 1 year for full skin exam Applicable photos (if any) and chart reviewed by Dr. Atnonio Mcdowell. Presumed diagnoses, expected natural histories, and management options discussed with the patient at length. Questions were addressed and anticipatory guidance provided. They were instructed to contact me if additional questions, concerns, or problems develop in the interim. -There were no barriers to learning and no other pain was related to today's visit. The patient and/or person accompanying patient demonstrates understanding of the visit and treatment. Hilary Faith PA-C 04/24/2024 7:[address] [facility] [place] [phone] documented in this encounter Nursing Notes * [place] LPN - 04/24/2024 7:34 AM EST Patient identified by full name and date of Chief Complaint Patient presents with Follow Up Pt here for yearly full skin exam. Hx of non-melanoma skin cancer. No concerns. documented in this encounter Plan of Treatment Upcoming Encounters Date Type Department Care Team (Late st Contact Info) Description 06/16/2024 7:40 AM EST Office Visit Family Practice, [facility] [address] [place] [phone] Nic Durbin MD [address] [place] [id number] 06/25/2025 7:40 AM EST Office Visit Dermatology, [facility] Thomas [address] [place] [phone] Hilary Faith, PAAnanda [address] [place] [address] [place] [id number] Health Maintenance Due Date Last Done Comments DISCUSS TOBACCO CESSATION (REFER TO SMARTSET #3291) 1945 CKD PHOS USE SMARTSET 97698 09/12/1963 Adult Wellness Visit 09/12/2011 COVID-19 Vaccine ( season) 2024 03/19/2023, 03/29/2021, 07/23/2020, Additional history exists Influenza Vaccine (FLU shot) (#1) 2024 03/19/2023, 05/01/2022, 04/25/2021, Additional history exists B-12 05/18/2024 05/18/2023, 04/13, 04/21/2021, Additional history exists GFR 09/21/2024 03/24/2024, 07/0 01/2024, 05/18/2023, Additional history exists HbA1c 09/21/2024 03/24/2024, 07/0 01/2024, 05/18/2023, Additional history exists Albumin/Creatinine Ratio 11/19/20242 024, 10/24/2021, 08/20/2018, Additional history exists CKD HGB USE SMARTSET 70147 11/19/202411/19, 10/24/2021, 06/02/2020, Additional history exists Depression [...] Procedure Name Priority Date/Time Associated Diagnosis Comments DERM EXAM - DERM (IMAGES ONLY, NO REPORT) Routine 04/24/2024 7:48 AM EST Hx of nonmelanoma skin cancer Skin exam, screening for cancer Scar condition and fibrosis of skin Seborrheic keratosis Actinic keratosis documented in this encounter Results * DERM EXAM - DERM (IMAGES ONLY, NO REPORT) (04/24/2024 7:48 AM EST) Narrative Scheduling, Silent - 04/24/2024 7:48 AM EST This is an imaging study not interpreted or resulted by a [facility] or [facility] contracted radiologist. us Hilary Faith PA-C RADIOLOGY ([facility] ) Final Result documented in this encounter Visit Diagnoses Diagnosis Hx of nonmelanoma skin cancer- Primary Personal history of other malignant neoplasm of skin Skin exam, screening for cancer Screening for malignant neoplasm of the skin Scar condition and fibrosis of skin Seborrheic keratosis Other seborrheic keratosis Actinic keratosis documented in this encounter Advance Directives Documents on File Type Date Recorded Patient Towerman Expl anation Advance Directives and Living Will 01/03/2005 LIVING WILL Power of Greek Professor 01/03/2005 POWER OF A TTORNEY [facility] POWER OF WORKSITE WELLNESS PRACTITIONER Care Teams Restorative Aide Relationship Specialty Start Date End Date Nic Durbin MD [address] [place] [address] PCP - General Family Medicine 05/23/16 documented as of this encounter
--- OUTSIDE RECORDS SUMMARY | 2024-05-31 12:10 | External Medical Summary | Summary of Care ---
Author Name Unknown Organization [facility] Address [address] [place] [address] Phone [phone] Care Team Providers Care Videotape Sales Representative Name Role Phone Nic Durbin MD Primary Care Provider [phone]- [phone] Reason for Visit * Reason Comments Outpatient Testing Encounter Details Date Type Department Care Team (Late st Contact Info) Description 03/24/2024 12:30 PM EST Laboratory Laboratory, [facility] [address] [place] [address] [facility] [address] [place] [address] Type 2 diabetes mellitus with hemoglobin A1c goal of less than 8.0% (HCC) Allergies No known active allergiesdocumented as of this encounter (statuses as of 03/24/2024) Medications Metoprolol Succinate 50 MG Oral Capsule [...] as of this encounter (statuses as of 03/24/2024) Active Problems Problem Noted Date Diagnosed Date [...] as of this encounter (statuses as of 03/24/2024) Resolved Problems Problem Noted Date Diagnosed Date Resolved Date Atrial fibrillation 05/31/2016 11/21/19 24 Microalbuminuria 05/31/2016 10/26/2021 documented as of this encounter (statuses as of 03/24/2024) Immunizations Name Administration Dates Next Due COVID-19 mRNA, LNP-s, No Pre serve, 2-Dose Series ([employer]) 07/23/2020,06/25/2020 COVID-19, MRNA-LNP, PF, 50 M CG/0.5 [...] No 11/21/2023 Does the household have a [facility] source of income? (Household - [...] Description 04/24/2024 7:40 AM EST Office Visit Dermatology [place] [address] [address] [place] [phone] Hilary Faith PA-C [address] [place] [address] [place] [address] 06/16/2024 7:40 AM EST Office Visit [facility] [address] [place] [address] Nic Durbin MD [address] [facility] [place] [address] Pending Results Name Type Priority Associated Diagnoses Date /Time HEMOGLOBIN A1C Lab Routine Type 2 diabetes mellitus with hemoglobin A1c goal of less than 8.0% ([facility]) 03/24/2024 11:27 AM EST BASIC METABOLIC PANEL Lab Routine Type 2 diabetes mellitus with hemoglobin A1c goal of less than 8.0% ([facility]) 03/24/2024 11:27 AM EST Health Maintenance Due Date Last Done Comments DISCUSS TOBACCO CESSATION (REFER TO SMARTSET #3291) 1945 CKD PHOS USE SMARTSET 23190 09/12/1963 Adult Wellness Visit 09/12/2011 COVID-19 Vaccine ( season) 2024 03/19/2023, 03/29/2021, 07/23/2020, Additional history exists Influenza Vaccine (FLU shot) (#1) 2024 03/19/2023, 05/01/2022, 04/25/2021, Additional history exists B-12 05/18/2024 05/18/2023, 04/13, 04/21/2021, Additional history exists GFR 05/22/2024 11/20/2023, 01/0 09/2023, 10/30/2022, Additional history exists HbA1c 05/22/2024 11/20/2023, 01/0 09/2023, 10/30/2022, Additional history exists Albumin/Creatinine Ratio 11/19/2024 07 024, 10/24/2021, 08/20/2018, Additional history exists CKD HGB USE SMARTSET 78970 11/19/202411/19, 10/24/2021, 06/02/2020, Additional history exists Depression [...] as of this encounter Visit Diagnoses Diagnosis Type 2 diabetes mellitus with hemoglobin A1c goal of less than 8.0% (HCC) documented in this encounter Advance Directives Documents on File Type Date Recorded 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
--- OUTSIDE RECORDS SUMMARY | 2024-05-31 12:10 | External Medical Summary ---
Author Name Unknown Address Unknown Organization [facility] [address] [place] [address] Laboratory Report Ordering Provider Test Date Status KATHRYN WAGNER 03/24/2024 11:27:52 Final Observation Date Value Abnormality Reference (Units ) Status BUN 03/24/2024 11:27:52 19 6-20 (mg/dL) Final Creatinine 03/24/2024 11:27:52 1.4 Above high normal 0.6-1.2 (mg/dL) Final Glomerular filtration rate/1.73 sq M.predicted [Volume Rate/Area] in Serum, Plasma or Blood by Creatinine-based formula (CKD-EPI) 03/24/2024 11:27:52 53 Below low normal >=60 (mL/min) Final eGFR is calculated based on the CKD-EPI 2020 equation. Sodium 03/24/2024 11:27:52 138 135-146 (m mol/L) Final Potassium 03/24/2024 11:27:52 5.0 3.5-5.1 (m mol/L) Final Cl 03/24/2024 11:27:52 101 98-107 (mm ol/L) Final CO2 03/24/2024 11:27:52 23 22-32 (mmo l/L) Final Anion gap 03/24/2024 11:27:52 14 7-15 (mmol /L) Final Glucose 03/24/2024 11:27:52 273 Above high normal 70 -120 (mg/dL) Final Calcium 03/24/2024 11:27:52 9.7 8.4-10.2 ( mg/dL) Final Performing Location [facility] [address] [place] [address]
--- OUTSIDE RECORDS SUMMARY | 2024-05-31 12:10 | External Medical Summary | Summary of Care ---
Author Name Unknown Organization [facility] Address [address] [place] [address] Phone [phone] Care Team Providers Care Senior Database Engineer Name Role Phone Bernard Peralta MD Primary Care Provider +1- [phone] Reason for Visit * Reason Onset Date Comments Medication Refill 12/18/2023 Encounter Details Date Type Department Care Team (Late st Contact Info) Description 12/18/2023 Refill [facility] [address] [place] [address] Bernard Peralta MD [address] [place] [address] Allergies No known active allergiesdocumented as of this encounter (statuses as of 12/19/2023) Medications Medication Sig Dispensed Refills Start Date End Date Status Metoprolol Succinate 50 MG Oral Capsule ER 24 Hour SprinkleIndication s:Permanent atrial fibrillation (HCC) Take 50 mg by mouth in the morning and 50 mg before bedtime. 180 Capsule 3 05/18/2023 Active Rivaroxaban 20 MG Oral Tablet (Xarelto) Take 1 tablet by mouth daily with dinner 90 Tablet 3 06/19/2023 Active amLODIPine Besylate 5 MG Oral Tablet (Norvasc)Indicatio ns:HTN, goal below 130/80 TAKE 1 TABLET BY MOUTH EVERY DAY IN THE MORNING 90 Tablet 3 10/03/2023 Active Lisinopril 30 MG Oral TabletIndications: Type 2 diabetes mellitus with hemoglobin A1c [...] before bedtime. 360 Tablet 3 12/19/2023 Active Januvia 100 MG Oral Tablet (SITagliptin) Take 1 Tablet (100 mg) by mouth in the morning. 90 Tablet 1 06/18/2023 12/18/2023 Discontinue d(Refill) Farxiga 10 MG Oral Tablet (Dapagliflozin Propanediol) Take 1 tablet by mouth daily 90 Tablet 1 06/18/2023 12/18/2023 Discontinue d(Refill) metFORMIN HCl 500 MG Oral Tablet (Glucophage) Take 2 tablets (1,000 mg) by mouth in the morning and 2 tablets (1,000 mg) before bedtime. 360 Tablet 1 06/18/2023 12/18/2023 Discontinue d(Refill) documented as of this encounter (statuses as of 12/19/2023) Active Problems Problem Noted Date Diagnosed Date Hx of actinic keratosis 10/16/2022 Overview: actinic [...] as of this encounter (statuses as of 12/19/2023) Resolved Problems Problem Noted Date Diagnosed Date Resolved Date Atrial fibrillation 05/31/2016 11/21/19 24 Microalbuminuria 05/31/2016 10/26/2021 documented as of this encounter (statuses as of 12/19/2023) Immunizations Name Administration Dates Next Due COVID-19 mRNA, LNP-s, No Pre serve, 2-Dose Series (dilitronics) 07/23/2020,06/25/2020 COVID-19, MRNA-LNP, 23-24, P F, 50 [...] 03/19/2023,05/01/2022,04/25/2021 Seasonal Influenza, Trivalen t, Adjuvanted, 65+ yrs 02/24/2019 TD - Tetanus/Diptheria (ADULT) 02/16/2014 TDAP [...] No 11/21/2023 Does the household have a [facility] source of income? (Household - for [...] on file documented as of this encounter Miscellaneous Notes * Telephone Encounter - Bernard Peralta MD - 12/19/2023 9:06 AM EDTSigned Prescriptions: Disp Refills SITagliptin Phosphate 100 MG Oral Tablet (*90 Tab*3 Sig: Take 1 Tablet by mouth in the morning.Authorizing Provider: BERNARD PERALTA Dapagliflozin Propanediol 10 MG Oral Table*90 Tab*3 Sig: Take 1 tablet by mouth dailyAuthorizing Provider: BERNARD PERALTA etFORMIN HCl 500 MG Oral Tablet (Glucopha*360 Ta*3 Sig: Take 2 Tablets by mouth in the morning and 2 Tablets before bedtime.Authorizing Provider: BERNARD PERALTA * Telephone Encounter - Maria Ines Bautista LPN - 12/18/2023 4:15 PM EDTPending Prescriptions: Disp Refills SITagliptin Phosphate 100 MG Oral Tablet (*90 Tab*1 Sig: Take 1 Tablet by mouth in the morning. Dapagliflozin Propanediol 10 MG Oral Table*90 Tab*1 Sig: Take 1 tablet by mouth daily metFORMIN HCl 500 MG Oral Tablet (Glucopha*360 Ta*1 Sig: Take 2 Tablets by mouth in the morning and 2 Tablets before bedtime. * Telephone Encounter - Maria Ines Bautista LPN - 12/18/2023 4:15 PM EDTPending Prescriptions: Disp Refills SITagliptin Phosphate 100 MG Oral Tablet (*90 Tab*1 Sig: Take 1 Tablet by mouth in the morning. Dapagliflozin Propanediol 10 MG Oral Table*90 Tab*1 Sig: Take 1 tablet by mouth daily metFORMIN HCl 500 MG Oral Tablet (Glucopha*360 Ta*1 Sig: Take 2 Tablets by mouth in the morning and 2 Tablets before bedtime. * Telephone Encounter - Hanna Austin OSA - 12/18/2023 2:48 PM EDT Did you pend patient's preferred pharmacy and medication before forwarding?yes Pharmacy: [facility] Pending Prescriptions: Disp Refills SITagliptin Phosphate 100 MG Oral Tablet *90 Tab*1 Sig: Take 1 Tablet by mouth in the morning. Dapagliflozin Propanediol 10 MG Oral Tabl*90 Tab*1 Sig: Take 1 tablet by mouth daily metFORMIN HCl 500 MG Oral Tablet (Glucoph*360 Ta*1 Sig: Take 2 Tablets by mouth in the morning and 2 Tablets before bedtime. Last Visit: 11/21/2023 (in office), 01/04/2022 (telemedicine) Next Visit: 06/16/2024 If no future appointments scheduled, and last appointment is greater than a year ago, please schedule patient for a follow-up appointment Last date the medication was ordered: 2523 Is this request for a controlled substance?No Urine Drug Screen:No results found for this or any previous visit. Patient Phone Numbers Labs: Lab Results Component Value Date/Time CREAT 1.4 (H) 11/20/2023 07:34 AM CREAT 1.1 06/02/2020 07:51 AM POTASSIUM 5.2 (H) 11/20/2023 07:34 AM POTASSIUM 4.8 06/02/2020 07:51 AM LDLCALC 121 11/20/2023 07:34 AM LDLCALC 105 06/02/2020 07:51 AM LDLDIRECT NOT APPLICABLE 06/02/2020 07:51 AM ALT 20 11/20/2023 07:34 AM ALT 22 06/02/2020 07:51 AM HGBA1C 7.1 (H) 11/20/2023 07:34 AM HGBA1C 6.5 (H) 06/02/2020 07:51 AM * Telephone Encounter - Hanna Austin OSA - 12/18/2023 2:43 PM EDT Did you pend patient's preferred pharmacy and medication before forwarding?yes Pharmacy: [email or web address] Pending Prescriptions: Disp Refills SITagliptin Phosphate 100 MG Oral Tablet *90 Tab*1 Sig: Take 1 Tablet by mouth in the morning. Last Visit: 11/21/2023 (in office), 01/04/2022 (telemedicine) Next Visit: 06/16/2024 If no future appointments scheduled, and last appointment is greater than a year ago, please schedule patient for a follow-up appointment Last date the medication was ordered: 2523 Is this request for a controlled substance?No Urine Drug Screen:No results found for this or any previous visit. Patient Phone Numbers Labs: Lab Results Component Value Date/Time CREAT 1.4 (H) 11/20/2023 07:34 AM CREAT 1.1 06/02/2020 07:51 AM POTASSIUM 5.2 (H) 11/20/2023 07:34 AM POTASSIUM 4.8 06/02/2020 07:51 AM LDLCALC 121 11/20/2023 07:34 AM LDLCALC 105 06/02/2020 07:51 AM LDLDIRECT NOT APPLICABLE 06/02/2020 07:51 AM ALT 20 11/20/2023 07:34 AM ALT 22 06/02/2020 07:51 AM HGBA1C 7.1 (H) 11/20/2023 07:34 AM HGBA1C 6.5 (H) 06/02/2020 07:51 AM documented in this encounter Plan of Treatment Upcoming Encounters Date Type Department Care Team (Late st Contact Info) Description 04/24/2024 7:40 AM EST Office Visit Dermatology [place] [address] [address] [address] Hilary Faith PA-C [address] [place] [address] [place] [address] 06/16/2024 7:40 AM EST Office Visit Family Practice, [place] [facility] [place] [address] Bernard Peralta MD [address] [place] [address] Health Maintenance Due Date Last Done Comments DISCUSS TOBACCO CESSATION (REFER TO SMARTSET #9789) 1945 COVID-19 Vaccine ( season) 2023 03/19/2023, 03/29/2021, 07/23/2020, Additional history exists Influenza Vaccine (FLU shot) (#1) 2024 03/19/2023, 05/01/2022, 04/25/2021, Additional history exists Diabetic Eye Exam 01/26/2024 01/25/2023, , 11/25/2020, Additional history exists B-12 05/18/2024 05/18/2023, 04/13, 04/21/2021, Additional history exists HbA1c 05/22/2024 11/20/2023, 01/0 09/2023, 10/30/2022, Additional history exists Albumin/Creatinine Ratio 11/19/2024 024, 10/24/2021, 08/20/2018, Additional history exists GFR 11/19/2024 11/20/2023, 010 09/2023, 10/30/2022, Additional history exists Depression Screening 11/20/2024 11/21/2023 Diabetic Foot Exam 11/20/2024 11/21/2023, 1 05/26/2017, 05/25/2017 DTaP,Tdap,and Td Vaccines (2 - Td or Tdap) 05/15/2033 [...] Not on filedocumented as of this encounter Advance Directives Documents on File Type Date Recorded Patient Script Worker Expl anation Advance Directives and Living Will 01/03/2005 LIVING WILL Power of Wedding Transportation Driver 01/03/2005 POWER OF A TTORNEY [facility] GENERAL POWER OF CLIENT EXPERIENCE ADMINISTRATOR Care Teams Senior Database Engineer Relationship Specialty Start Date End Date Bernard Peralta MD [address] [place] [address] PCP - General Family Medicine 05/23/16 documented as of this encounter
--- OUTSIDE RECORDS SUMMARY | 2024-05-31 12:10 | External Medical Summary | Summary of Care ---
Author Name Unknown Organization [facility] Address [address] [place] [address] Phone [phone] Care Team Providers Care Marketing Pr Intern Name Role Phone Bernard Peralta MD Primary Care Provider +1- [phone] Reason for Visit * Reason Onset Date Comments Medication Refill 12/18/2023 Encounter Details Date Type Department Care Team (Late st Contact Info) Description 12/18/2023 Refill [facility] [address] [place] [address] Bernard Peralta MD [address] [place] [address] Allergies No known active allergiesdocumented [...] the morning. 90 Tablet 3 11/21/2023 Active Glimepiride 1 MG Oral Tablet (Amaryl) Take 1 Tablet by mouth in the morning. with the first main meal of the day for diabetes. 90 Tablet 3 12/19/2023 Active Januvia 100 MG [...] 360 Tablet 1 06/18/2023 12/18/2023 Discontinue d(Refill) Glimepiride 1 MG Oral Tablet (Amaryl) Take 1 tablet (1 mg) by mouth in the morning with the first main meal of the day for diabetes. 90 Tablet 1 06/18/2023 12/18/2023 Discontinue d(Refill) documented [...] mRNA, LNP-s, No Pre serve, 2-Dose Series (Venda) 07/23/2020,06/25/2020 COVID-19, MRNA-LNP, 23-24, P F, 50 [...] No 11/21/2023 Does the household have a [facility] source of income? (Household - for ages [...] Encounter - Bernard Peralta MD - 12/19/2023 9:05 AM EDTSigned Prescriptions: Disp Refills Glimepiride 1 MG Oral Tablet (Amaryl) 90 Tab*3 Sig: Take 1 Tablet by mouth in the morning. with the first main meal of the day for diabetes.Authorizing Provider: BERNARD PERALTA * Telephone Encounter - Maria Ines Bautista LPN - 12/18/2023 4:15 PM EDTPending Prescriptions: Disp Refills Glimepiride 1 MG Oral Tablet (Amaryl) 90 Tab*1 Sig: Take 1 Tablet by mouth in the morning. with the first main meal of the day for diabetes. * Telephone Encounter - Hanna Austin OSA - 12/18/2023 2:49 PM EDT Did you pend patient's preferred pharmacy and medication before forwarding?yes Pharmacy: [facility] Pending Prescriptions: Disp Refills Glimepiride 1 MG Oral Tablet (Amaryl) 90 Tab*1 Sig: Take 1 Tablet by mouth in the morning. with the first main meal of the day for diabetes. Last Visit: 11/21/2023 (in office), 01/04/2022 (telemedicine) Next Visit: 06/16/2024 If no future appointments scheduled, and last appointment is greater than a year ago, please schedule patient for a follow-up appointment Last date the medication was ordered: 2992 Is this request for a controlled substance?No [...] 04/24/2024 7:40 AM EST Office Visit Dermatology, [place] [address] [place] [address] Hilary Faith PA-C [address] [place] [address] [place] [address] 06/16/2024 7:40 AM EST Office Visit Family Practice, [place] [address] [place] [facility] [place] [phone] Bernard Peralta MD [address] [place], [place] [phone] Health Maintenance Due Date Last Done Comments DISCUSS TOBACCO CESSATION (REFER TO SMARTSET #3291) 1945 COVID-19 Vaccine ( season) 2023 03/19/2023, 03/29/2021, 07/23/2020, Additional history exists Influenza Vaccine (FLU shot) (#1) 2024 03/19/2023, 05/01/2022, 04/25/2021, Additional history exists Diabetic Eye Exam 01/26/2024 01/25/2023, , 11/25/2020, Additional history exists B-12 05/18/2024 05/18/2023, 04/13, 04/21/2021, Additional history exists HbA1c 05/22/2024 11/20/2023, 0 09/2023, 10/30/2022, Additional history exists Albumin/Creatinine Ratio 11/19/2024 024, 10/24/2021, 08/20/2018, Additional history exists GFR 11/19/2024 11/20/2023, 0 09/2023, 10/30/2022, Additional history exists Depression Screening [...] Documents on File Type Date Recorded Patient Tunnel Form Placing Supervisor Expl anation Advance Directives and Living Will 01/03/2005 LIVING WILL Power of Transit Proof Machine Operator 01/03/2005 POWER OF A TTORNEY DURABLE GENERAL POWER OF SHOP BLACKSMITH Care Teams Marketing Pr Intern Relationship Specialty Start Date End Date Bernard Peralta MD [address] [place] [address] PCP - General Family Medicine 05/23/16 documented as of this encounter
--- OUTSIDE RECORDS SUMMARY | 2024-05-31 12:10 | External Medical Summary | Summary of Care ---
Author Name Unknown Organization [facility] Address [address] [place] [address] Phone [phone] Care Team Providers Care Manager Zone Name Role Phone Nic Durbin MD Primary Care Provider +1- [phone] Reason for Visit * Reason Onset Date Comments Medication Refill 03/03/2024 Encounter Details Date Type Department Care Team (Late st Contact Info) Description 03/03/2024 Refill [facility] [address] [place] [address] Nic Durbin MD [address] [place] [address] Allergies No known active allergiesdocumented as of this encounter (statuses as of 03/03/2024) Medications Medication Sig Dispensed Refills Start Date [...] for diabetes. 90 Tablet 3 12/19/2023 Active Cetirizine HCl 10 MG Oral Tablet (ZyrTEC) Take 1 Tablet by mouth in the morning. 90 Tablet 3 02/07/2024 Active Fluticasone Propionate 50 MCG/ACT Nasal Suspension (Flonase) Administer 2 Sprays into each nostril in the morning. 16 g 1 03/03/2024 Active Fluticasone Propionate 50 MCG/ACT Nasal Suspension (Flonase) Administer 2 Sprays into each nostril in the morning. 16 g 1 02/07/2024 4 Discontinue d(Refill) documented as of this encounter (statuses as of 03/03/2024) Active Problems Problem Noted Date Diagnosed Date [...] as of this encounter (statuses as of 03/03/2024) Resolved Problems Problem Noted Date Diagnosed Date Resolved Date Atrial fibrillation 05/31/2016 11/21/19 24 Microalbuminuria 05/31/2016 10/26/2021 documented as of this encounter (statuses as of 03/03/2024) Immunizations Name Administration Dates Next Due COVID-19 mRNA, LNP-s, No Pre serve, 2-Dose Series ([employer]) 07/23/2020,06/25/2020 COVID-19, MRNA-LNP, 23-24, P F, 50 [...] encounter Miscellaneous Notes * Telephone Encounter - Shayla Gordon MD - 03/03/2024 2:33 PM EDTSigned Prescriptions: Disp Refills Fluticasone Propionate 50 MCG/ACT Nasal [place]*16 g 1 Sig: Administer 2 Sprays into each nostril in the morning. Authorizing Provider: SHAYLA GORDON * Telephone Encounter - Kamron Peters OSA - 03/03/2024 2:07 PM EDT Did you pend patient's preferred pharmacy and medication before forwarding?yes Pharmacy: [id number] [address] [facility] Pending Prescriptions: Disp Refills Fluticasone Propionate 50 MCG/ACT Nasal S*16 g 1 Sig: Administer 2 Sprays into each nostril in the morning. Last Visit: 02/07/2024 (in office), 01/04/2022 (telemedicine) Next Visit: 06/16/2024 If no future appointments scheduled, and last appointment is greater than a year ago, please schedule patient for a follow-up appointment Last date the medication was ordered: 02/07/24 Is this request for a controlled substance?No Urine Drug Screen:No results found for this or any previous visit. Patient Phone Numbers Labs: Lab Results Component Value Date/Time CREAT 1.4 (H) 11/20/2023 07:34 AM CREAT 1.1 06/02/2020 07:51 AM POTASSIUM 5.2 (H) 11/20/2023 07:34 AM POTASSIUM 4.8 06/02/2020 07:51 AM LDL 121 11/20/2023 07:34 AM LDL 105 06/02/2020 07:51 AM LDL NOT APPLICABLE 06/02/2020 07:51 AM ALT 20 11/20/2023 07:34 AM ALT 22 06/02/2020 07:51 AM HGBA1C 7.1 (H) 11/20/2023 07:34 AM HGBA1C 6.5 (H) 06/02/2020 07:51 AM documented in this encounter Plan of Treatment Upcoming Encounters Date Type Department Care Team (Late st Contact Info) Description 04/24/2024 7:40 AM EST Office [facility] [place] [address] [facility] [address] Hilary Faith, BEN [address] [place] [address] [place] [address] 06/16/2024 7:40 AM EST Office Visit [facility] Practice, [place] [address] [facility] [phone] Nic [facility]urbin MD [address] [facility] [address] Health Maintenance Due Date Last Done Comments DISCUSS TOBACCO CESSATION (REFER TO SMARTSET #3416) 1945 CKD PHOS USE SMARTSET 71397 09/12/1963 Adult Wellness Visit 09/12/2011 COVID-19 Vaccine [...] Additional history exists CKD HGB USE SMARTSET 64051 11/19/202411/19, 10/24/2021, 06/02/2020, Additional history exists Depression [...] Documents on File Type Date Recorded Patient Lna Expl anation Advance Directives and Living Will 01/03/2005 LIVING WILL Power of Research Technologist 01/03/2005 POWER OF A TTORNEY [facility] GENERAL POWER OF PAVER LAYER Care Teams Manager Zone Relationship Specialty Start Date End Date Nic Durbin MD [address] [place] [address] PCP - General Family Medicine 05/23/16 documented as of this encounter
--- OUTSIDE RECORDS SUMMARY | 2024-05-31 12:10 | External Medical Summary | Summary of Care ---
Author Name Unknown Organization [facility] Address [address] [facility] [place] [address] Phone [phone] Care Team Providers Care Business Development Director Name Role Phone Nic Durbin MD Primary Care Provider +1- [phone] Reason for Visit * Reason Comments Follow Up Pt here for yearly f ull skin exam. Hx of non-melanoma skin cancer. No concerns. Encounter Details Date Type Department Care Team (Late st Contact Info) Description 04/24/2024 7:40 AM EST [facility] [address] [place] [address] Hilary Faith PA-C [address] [place] [address] [place] [address] Hx of nonmelanoma skin [...] mRNA, LNP-s, No Pre serve, 2-Dose Series ([employer]) 07/23/2020,06/25/2020 COVID-19, MRNA-LNP, PF, 50 M CG/0.5 [...] Product examples; Think sport, Think baby, Mohini, Zondero botanicalAmigos y Amigos, Alba Envia [place], [place] baby. "Baby" products can be used for all ages. documented in this encounter Progress Notes * Antonio Mcdowell MD - 04/24/2024 4:00 PM EST I have seen and examined the patient via teledermatology review of chart note and photos with Hilary Faith PA-C. I have reviewed and agree with the assessment and plan. * Hilary Faith PA-C - 04/24/2024 7:40 AM EST SUBJECTIVE: History of Present Illness: Pawan Majano is a 78 year old male seen today for follow up of full skin exam. Previous office visit: 02/22/2023 Last attempted treatments include: NONE No new or changing lesions, per pt. Cloth Folder Machine Documentation Patient offered criminology teacher and declined. REVIEW OF SYSTEMS: SKIN: No [...] scalp 07/06) Reviewed, same day as visit, [address] [place] [address] Dermatology lab work(s)/pathology report(s) as well as [...] Verbal consent obtained. Time out called immediately priorto procedure and patient identification and site verified. [...] (if any) and chart reviewed by Dr. Antonio Mcdowell. Presumed diagnoses, expected natural histories, and [...] treatment. Hilary Faith PA-C 04/24/2024 7:36 AM Dermatology, [address] [facility] [place] [address] documented in this encounter Nursing Notes * [...] 06/16/2024 7:40 AM EST [facility] [address] [phone] Nic Durbin MD [address] [place] [address] 06/25/2025 7:40 AM EST Office [facility] [address] [address] Hilary Faith PA-C [address] [place] [address] [place] [address] Health Maintenance Due Date Last Done Comments DISCUSS TOBACCO CESSATION (REFER TO SMARTSET #3291) 1945 CKD PHOS USE SMARTSET 21296 09/12/1963 Adult Wellness Visit 09/12/2011 COVID-19 Vaccine ( season) 2024 03/19/2023, 03/29/2021, 07/23/2020, Additional history exists Influenza Vaccine (FLU shot) (#1) 2024 03/19/2023, 05/01/2022, 04/25/2021, Additional history exists B-12 05/18/2024 05/18/2023, 04/13, 04/21/2021, Additional history exists GFR 09/21/2024 03/24/2024, 07/0 01/2024, 05/18/2023, Additional history exists HbA1c 09/21/2024 03/24/2024, 07/0 01/2024, 05/18/2023, Additional history exists Albumin/Creatinine Ratio 11/19/2024 024, 10/24/2021, 08/20/2018, Additional history exists CKD HGB USE SMARTSET 29681 11/19/202411/19, 10/24/2021, 06/02/2020, Additional history exists Depression [...] interpreted or resulted by a [facility] or [facility] contracted radiologist. us Hilary Faith PA-C RADIOLOGY ([facility] ) Final Result documented in this encounter Visit Diagnoses Diagnosis Hx of nonmelanoma skin cancer- Primary Personal history of other malignant neoplasm of skin Skin exam, screening for cancer Screening for malignant neoplasm of the skin Scar condition and fibrosis of skin Seborrheic keratosis Other seborrheic keratosis Actinic keratosis documented in this encounter Advance Directives Documents on File Type Date Recorded Patient Account Executive Trainee Expl anation Advance Directives and Living Will 01/03/2005 LIVING WILL Power of Glass Crusher 01/03/2005 POWER OF A [facility]TORNEY [facility] POWER OF DIVISION COMMANDER Care Teams Business Development Director Relationship Specialty Start Date End Date Nic Durbin MD [address] [place] [address] PCP - General Family Medicine 05/23/16 documented as of this encounter
--- OUTSIDE RECORDS SUMMARY | 2024-05-31 12:10 | External Medical Summary ---
Author Name Unknown Address Unknown Organization K01:[facility] [place] [address] [facility] [address] [facility] [address] Laboratory Report Ordering Provider Test Date Status KATHRYN WAGNER 03/24/2024 11:27:52 Final Observation Date Value Abnormality Reference (Units ) Status HbA1C 03/24/2024 11:27:52 6.7 Above high normal 4. 0-5.6 (%) Final The use of HbA1c to monitor glycemic status is based on normal hemoglobin and HbA composition. This test should not be used in patients with abnormal hemoglobin that affects the half life of the red blood cell or the in vivo glycation rates. Glucose, estimated average 03/24/2024 11:27:52 146 Above high normal <126 (mg/dL) Lucas bone Performing Location [facility] [address] [facility] [address]
--- OUTSIDE RECORDS SUMMARY | 2024-05-31 12:10 | External Medical Summary | Summary of Care ---
Author Name Unknown Organization [facility] Address [address] [place] [address] Phone [phone] Care Team Providers Care Welding Machine Operator Gas Name Role Phone Nic Durbin MD Primary Care Provider [phone] Encounter Details Date Type Department Care Team (Latest Contact Info) Description 04/24/2024 7:48 AM EST - 04/24/2024 11:59 PM EST Hospital Encounter Radiology Film File [address] [place] [address] Arrived Discharge Disposition: Home - Self Care Allergies No known active allergiesdocumented as of this encounter (statuses as of 04/25/2024) Medications Metoprolol Succinate 50 MG Oral Capsule [...] as of this encounter (statuses as of 04/25/2024) Active Problems Problem Noted Date Diagnosed Date [...] as of this encounter (statuses as of 04/25/2024) Resolved Problems Problem Noted Date Diagnosed Date Resolved Date Atrial fibrillation 05/31/2016 11/21/19 24 Microalbuminuria 05/31/2016 10/26/2021 documented as of this encounter (statuses as of 04/25/2024) Immunizations Name Administration Dates Next Due COVID-19 mRNA, LNP-s, No Pre serve, 2-Dose Series (Hylete) 07/23/2020,06/25/2020 COVID-19, MRNA-LNP, PF, 50 M CG/0.5 [...] 06/16/2024 7:40 AM EST [facility] [address] [phone] Nic Durbin MD [address] [id number] 06/25/2025 7:40 AM EST Office Visit Dermatology, [address] [phone] Hilary Faith PA-C [address] [place] [address] [address] [phone] Health Maintenance Due Date Last Done Comments DISCUSS TOBACCO CESSATION (REFER TO SMARTSET #[id number]) 1945 CKD PHOS USE SMARTSET 63445 09/12/1963 Adult Wellness Visit 09/12/2011 COVID-19 Vaccine [...] Additional history exists CKD HGB USE SMARTSET 77723 11/19/202411/19, 10/24/2021, 06/02/2020, Additional history exists Depression [...] study not interpreted or resulted by a [facility] or [facility] contracted radiologist. Hilary Faith PA-C RADIOLOGY (RAD GENERAL ) Final Result documented in this encounter Advance Directives Documents on File Type Date Recorded Patient Business Director Expl anation Advance Directives and Living Will 01/03/2005 LIVING WILL Power of Cafe Operator 01/03/2005 [facility] OF GRADUATE ADVISOR Care Teams Welding Machine Operator Gas Relationship Specialty Start Date End Date Nic Durbin MD [address] [facility] [address] PCP - General Family Medicine 05/23/16 documented as of this encounter
[2024-05-31] MEDS: OPTIRAY 320 125ml IV ONE (12:21)
--- NOTE | 2024-05-31 12:40 | Emergency Department Note ---
Impression & Plan Expressive aphasia, Stroke-like symptoms, Chronic anticoagulation ED Provider Note NAME: SABAS MONACO AGE: 78 SEX: Male INFORMANT: Patient and ED PROVIDER(S): Hernan Mitchell MD CHIEF COMPLAINT: PLAN: Disposition: Strokelike symptoms Outpatient prescription management: none Referral: None MEDICAL DECISION MAKING: Patient presented because of strokelike symptoms. He was made a stroke alert. He was evaluated promptly on arrival. I did discuss the patient's history and findings with his . He did have expressive aphasia on examination but no other motor findings. CT imaging of the head as well as CT angiography did not reveal any acute findings. I [facility] In light of the patient's anticoagulation loosely he is not a TNK candidate. Discussed this with the patient and . On reassessment the patient was feeling better and his speech was significantly improved with near resolution. He underwent MR imaging. He appeared to have a small area of acute infarct on MR imaging. Discussed findings with the patient and . Consultation was made with the [facility] hospitalist service. Patient was evaluated in the ER and admitted for further management. I did discuss the telestroke recommendations with the hospitalist as well. Care/management discussed with: title manager Level of care consideration(s): After review of the information above and other included data, I feel the patient requires escalation of care to admission Triage Nursing notes: reviewed and agree them. Vital Signs: reviewed and remarkable for mild hypertension Additional History obtained from: Patient's regarding time of onset. Chronic Medical/Social Conditions affecting care: A-fib, anticoagulation Prior/ Outside/ External records reviewed: Primary care office note from 11/21/2023 reviewed. Patient was seen for wellness and maintenance of diabetes. Chronic A-fib noted. Patient on anticoagulation and no changes made. Differential Diagnosis: CVA, TIA,Infection, dehydration, metabolic abnormality, hypo/hyperglycemia, electrolyte disturbance, anemia, hypoxia, cardiac sources, intracerebral event, toxicologic, neurologic, as well as other pathologies. Diagnostics, independently interpreted by me: ECG: Twelve-lead ECG reveals atrial fibrillation with a right bundle branch block at [address] elevation or depression. Cardiac Monitoring: Cardiac monitoring ordered by me: The patient was placed on continuous cardiac monitoring and observed. It revealed atrial fibrillation at 79 bpm. Medical decision rules: none Imaging studies: Head CT: A noncontrast CT scan of the head was performed and was negative for tumor, fracture, intracranial hemorrhage, or other acute pathology. I refer you to the EMR for further details. HPI: 78 year old Male arrives for evaluation of strokelike symptoms. This started 10 AM and is described as difficulty with word finding. Patient's is present and helps with the history. The patient also notes the following associated symptoms, garbled speech. The patient has taken no medication for relieving factors. Current pain is rated as 0/10. Patient notes no history of TIA or stroke. Patient does have a history of A-fib and is anticoagulated. Pt denies LOC, headache, fevers, chills, diaphoresis, visual changes, neck pain, chest pain, breathing difficulties, nausea, vomiting, abdominal pain, back pain, urinary symptoms, numbness, weakness, or other complaints.. PAST MEDICAL HISTORY: See Below, A-fib, anticoagulation, diabetes PAST SURGICAL HISTORY: See Below, SOCIAL HISTORY: See Below, HOME MEDICATIONS: See Below ALLERGIES: See Below VITALS: See Below PHYSICAL EXAMINATION: GENERAL: Awake, alert, well-appearing, in no distress HENT: Normocephalic, atraumatic. Oropharynx unremarkable. EYES: Normal conjunctiva. Sclera non-icteric. PERRLA. EOMI. NECK: Inspection normal. Non-tender. Supple. No nuchal rigidity. FROM. No masses. RESPIRATORY: Clear to auscultation. No wheezes. No rales. Normal respiratory effort. CARDIAC: Normal rate. Normal rhythm. No murmurs. No rubs. Extremities warm and well perfused. Pulses equal. No JVD. GI: Soft, non-distended. No tenderness to palpation. No rebound or guarding. No masses. RECTAL: Deferred. MUSCULOSKELETAL: Atraumatic. Chest examination reveals no tenderness. The back is symmetrical on inspection without obvious abnormality. There is no CVA tenderness to palpation. No joint edema. LOWER EXTREMITIES: Calves are equal size bilaterally and non-tender. No edema. No discoloration. NEURO: Normal sensorium. No focal sensory or motor deficits noted. Cranial nerves II through XII intact. Expressive aphasia present. No drift. Normal [id number]. SKIN: No rash or jaundice noted. PROCEDURES: none CRITICAL CARE: none OBSERVATION NOTE: none Past Med/Surg History Problem List Chronic anticoagulation (Acute) Stroke-like symptoms (Acute) Expressive aphasia (Acute) Medical History DVT prophylaxis Hypertension Microscopic hematuria Elevated troponin Influenza A Sepsis Type 2 diabetes mellitus Atrial fibrillation Social History Smoking Status: Former smoker Tobacco Type: Cigars Second Hand Exposure: Yes; Do You Dip or Chew Tobacco: No; Hx Alcohol Use: Yes Alcohol type: beer, wine and hard liquor Hx Substance Use: No Preferred Language: Djiboutian Communication Ability: Effective Supplier Manager Required: No Beliefs That Will Affect Care: None Current Living Situation: Spouse Other Information That Helps Us Care for You: No Feels Safe at Home: Yes Safety Concerns: Feels Safe At This Time Assistive Devices: None Allergies Allergies Allergy/AdvReac Type Severity Reaction Status Date / Time No Known Allergies Allergy Verified 07/11/21 11:48 Home Meds Home Medications Medication Instructions Recorded Confirmed dapagliflozin propanediol 10 mg 10 mg PO UD 07/11/21 05/31/24 tablet (Farxiga) glimepiride 1 mg tablet 1 mg PO UD 07/11/21 05/31/24 metformin 500 mg tablet 1,000 mg PO UD 07/11/21 05/31/24 rivaroxaban 20 mg tablet (Xarelto) 20 mg PO UD 07/11/21 05/31/24 sitagliptin phosphate 100 mg 100 mg PO UD 07/11/21 05/31/24 tablet (Januvia) amlodipine 5 mg tablet 5 mg PO DAILY 05/31/24 05/31/24 cetirizine 10 mg tablet 10 mg PO DAILY 05/31/24 05/31/24 fluticasone propionate 50 2 spray intranasal DAILY 05/31/24 05/31/24 mcg/actuation nasal spray,suspension lisinopril 10 mg tablet 20 mg PO UD 05/31/24 05/31/24 metoprolol succinate 50 mg 50 mg PO UD 05/31/24 05/31/24 tablet,extended release 24 hr Previous Rx's Medication Instructions Recorded atorvastatin 40 mg tablet 40 mg PO DAILY #30 tabs 06/01/24 Results & Data (ED) Vital Signs Vital Signs - 24 hr 05/31/24 12:04 05/31/24 12:34 Temperature 36.9 C Temperature Source Temporal Artery Scan Pulse Rate 88 94 H Pulse Strength Normal Respiratory Rate 16 Respiratory Effort / Characteristics Non-Labored Spontaneous Respiratory Depth Normal Respiratory Pattern Regular Blood Pressure 173/84 H Blood Pressure Mean 113 Blood Pressure Position Sitting Pulse Oximetry 96 Oxygen Delivery Method Room Air Sepsis Recent Fever Within 48 Hours No Sepsis New/Unexplained Change in Mental Status No Sepsis Action Taken by Nursing No Action Required Laboratory Data 06/01/24 07:13 06/01/24 07:13 Lab Results 05/31/24 05/31/24 05/31/24 Range/Units 12: 12:26 12:31 WBC 8.32 (4.8-10.8) K/ul RBC 4.70 (4.70-6.10) M/uL Hgb 13.3 L (14.0-18.0) g/dl POC Hgb 14.3 (14.0-18.0) g/dl Hct 41.2 L (42.0-52.0) % POC Hct 42 (42-52) % MCV 87.7 (80.0-100.0) fL MCH 28.3 (25.0-34.0) pg MCHC 32.3 (32.0-36.0) g/dL RDW Std Deviation 45.1 (36.4-46.3) fL RDW Coeff of Leila 14.0 (11.5-14.5) % Plt Count 209 (130-400) K/uL MPV 10.4 (9.4-12.4) fL PT 11.8 (9.0-12.0) Seconds INR 1.1 (0.9-1.1) APTT 32 H (21-31) Seconds PTT Ratio 1.2 POC Sodium 134 L (135-144) mmol/L Sodium 131 L (136-145) mmol/L POC Potassium 4.5 (3.3-5.0) mmol/L Potassium 4.5 (3.5-5.1) mmol/L POC Chloride 99 L (101-112) mmol/L Chloride 100 (98-107) mmol/L Carbon Dioxide 25 (21-32) mmol/L POC Total CO2 23 L (24-31) mmol/L Anion Gap 6 (3-11) POC Anion Gap 17.0 (16-25) mmol/L POC BUN 21 H (7-18) mg/dl BUN 22 (6-23) mg/dl Creatinine 1.37 (0.6-1.4) mg/dl POC Creatinine 1.4 H (0.6-1.3) mg/dl Est Cr Clr Drug Dosing 47.7 ml/min eGFR 52.80 BUN/Creatinine Ratio 16.1 (10-20) Glucose 253 H (70-99(Fasting)) mg/dl POC Glucose 236 H (70-99) mg/dl POC Glucose (other) 241 H (70-99) mg/dl Calcium 8.5 L (8.6-10.3) mg/dl POC Ioniz Calcium Marin 1.07 L (1.12-1.32) mmol/l Magnesium 1.9 (1.7-2.4) mg/dl Total Bilirubin 0.3 (0.2-1.0) mg/dl AST 16 (13-39) U/L ALT 17 (7-52) U/L Alkaline Phosphatase 52 (34-104) U/L Total Protein 5.8 L (6.0-8.3) gm/dl Albumin 3.6 (3.4-5.0) gm/dl Globulin 2.2 L (2.5-4.0) gm/dl Albumin/Globulin Ratio 1.6 (0.9-2) Blood Type O Positive Antibody Screen NEGATIVE Administered Medications Discontinued Medications Cetirizine HCl (Cetirizine Hcl 10 Mg Tablet) 10 mg PO DAILY SHANNON Stop: 07/01/24 08:59 Last Admin: 06/01/24 09:40 Dose: 10 mg Documented By: BESSY Sodium Chloride (Nss) 500 mls @ 999 mls/hr IV .Q31M ONE Stop: 06/01/24 07:49 Last Infusion: 06/01/24 11:20 Dose: Infused Documented By: Admin: 06/01/24 09:39 Dose: 999 mls/hr Documented By: BESSY Ioversol (Optiray 320 125ml) 112 ml IV ONCE ONE Stop: 05/31/24 12:22 Last Admin: 05/31/24 12:21 Dose: 112 ml Documented By: PANCHITO Metoprolol Succinate (Metoprolol Succ 50mg Ext Rel Tab) 50 mg PO BID SHANNON Stop: 06/30/24 16:12 Last Admin: 06/01/24 09:40 Dose: 50 mg Documented By: Admin: 05/31/24 20:44 Dose: 50 mg Documented By: Admin: 05/31/24 17:49 Dose: 50 mg Documented By: BESSY Discharge Plan Visit Data Chief Complaint: TIA Symptoms Stated Complaint: TROUBLE WITH SPEECH/DIFFERENT LANGUAGE ED Provider: Hernan Mitchell Discharge Problem: Expressive aphasia, Stroke-like symptoms, Chronic anticoagulation Patient Disposition: Admitted As Inpatient Condition: Good Discharge Instructions Interventions: ED Discharge Assessment Last Done: 05/31/24 16:53
[2024-05-31 12:42] LABS: Hematocrit (blood only) 41.2 % (42.0-52.0); Hemoglobin 13.3 g/dl (14.0-18.0); Mean Corpuscular Hemoglobin 28.3 pg (25.0-34.0); Mean Corpuscular Hgb Conc 32.3 g/dL (32.0-36.0); Mean Corpuscular Volume 87.7 fL (80.0-100.0); Mean Platelet Volume 10.4 fL (9.4-12.4); Platelet Count 209 K/uL (130-400); RDW Standard Deviation 45.1 fL (36.4-46.3); White Blood Count 8.32 K/ul (4.8-10.8)
[2024-05-31 12:43] LABS: iSTAT Creatinine 1.4 mg/dl (0.6-1.3); iSTAT Hemoglobin 14.3 g/dl (14.0-18.0); iSTAT Ionized Calcium 1.07 mmol/l (1.12-1.32); iSTAT Potassium 4.5 mmol/L (3.3-5.0)
--- NOTE | 2024-05-31 12:43 | CT Scan Report ---
EXAM: CT Angiography Head With Intravenous Contrast INDICATION: Stroke symptoms. TECHNIQUE: Axial computed tomographic angiography images of the head with intravenous contrast. Sagittal and coronal reformatted images were created and reviewed. This CT exam was performed using one or more of the following dose reduction techniques: automated exposure control, adjustment of the mA and/or kV according to patient size, and/or use of iterative reconstruction technique. MIP reconstructed images were created and reviewed. CONTRAST: 112 ml of Optiray 320 was administered intravenously. COMPARISON: No relevant prior studies available. FINDINGS: Right internal carotid artery: No acute change noted. Intracranial segment is patent with no significant stenosis. No aneurysm. Right anterior cerebral artery: Hypoplastic A1. Reconstitution via communicator. No occlusion or significant stenosis. No aneurysm. Right middle cerebral artery: No abnormality noted. No occlusion or significant stenosis. No aneurysm. Right posterior cerebral artery: No abnormality noted. No occlusion or significant stenosis. No aneurysm. Right vertebral artery: No significant abnormality noted. Left internal carotid artery: No acute change noted. Intracranial segment is patent with no significant stenosis. No aneurysm. Left anterior cerebral artery: No abnormality noted. No occlusion or significant stenosis. No aneurysm. Left middle cerebral artery: No abnormality noted. No occlusion or significant stenosis. No aneurysm. Left posterior cerebral artery: No abnormality noted. No occlusion or significant stenosis. No aneurysm. Left vertebral artery: No significant abnormality noted. Basilar artery: No abnormality noted. No occlusion or significant stenosis. No aneurysm. Other vasculature: Patent dural venous sinuses. Sinuses: Chronic opacification left maxillary, ethmoid and frontal sinuses. IMPRESSION: 1. No acute findings in the arteries of the head/brain. 2. Chronic opacification of the left frontal, ethmoid and maxillary sinuses. ACT 112: Negative or not required by law. Electronically signed by Berta Guan 05-31-2024 12:43 PM
[2024-05-31 13:01] LABS: Albumin Globulin Ratio 1.6 (0.9-2); Albumin Level 3.6 gm/dl (3.4-5.0); BUN Creatinine Ratio 16.1 (10-20); Bilirubin,Total 0.3 mg/dl (0.2-1.0); Calcium 8.5 mg/dl (8.6-10.3); Creatinine Clr Calc Pharmacy 47.7 ml/min; Globulin 2.2 gm/dl (2.5-4.0); Magnesium 1.9 mg/dl (1.7-2.4); Potassium 4.5 mmol/L (3.5-5.1); Total Protein 5.8 gm/dl (6.0-8.3)
[2024-05-31 13:11] LABS: INR 1.1 (0.9-1.1); Partial Thromboplastin Ratio 1.2; Partial Thromboplastin Time 32 Seconds (21-31); Prothrombin Time 11.8 Seconds (9.0-12.0)
--- NOTE | 2024-05-31 13:28 | XRay Report ---
EXAM: Radiograph of the Chest 1 View INDICATION: Stroke symptoms. TECHNIQUE: Frontal view of the chest. COMPARISON: 07/19/2022 FINDINGS: Lungs and pleural spaces: There is pulmonary vascular congestion without edema. No consolidation or pulmonary edema. No pleural effusion or pneumothorax. Heart: Shape and configuration within normal limits allowing for technique. Mediastinum: Normal contour. Bones/joints: No fracture, erosion or dislocation. Soft tissues: No abnormality noted. No radiopaque foreign body noted. Upper abdomen: No abnormality noted. IMPRESSION: There is pulmonary vascular congestion without edema. ACT 112: Negative or not required by law. Electronically signed by Berta Guan 05-31-2024 13:26 PM
--- NOTE | 2024-05-31 13:40 | CT Scan Report ---
EXAM: CT Angiography Neck With Intravenous Contrast INDICATION: Unspecified neurologic deficit TECHNIQUE: Routine carotid CT angiography protocol was performed with intravenous contrast. NASCET criteria using the distal ICAs for comparison were used for evaluation of stenoses. Sagittal and coronal reformatted images were created and reviewed. This CT exam was performed using one or more of the following dose reduction techniques: automated exposure control, adjustment of the mA and/or kV according to patient size, and/or use of iterative reconstruction technique. MIP reconstructed images were created and reviewed. CONTRAST: 112ml of Optiray 320 was administered intravenously. COMPARISON: None. FINDINGS: VASCULATURE: Right common carotid artery: No abnormality noted. No occlusion or significant stenosis. No dissection. Right internal carotid artery: Minimal proximal mixed plaque. Extracranial segment is patent with no occlusion or significant stenosis. No dissection. Right external carotid artery: No abnormality noted. No occlusion. Right vertebral artery: No abnormality noted. No occlusion or significant stenosis. No dissection. Left common carotid artery: No abnormality noted. No occlusion or significant stenosis. No dissection. Left internal carotid artery: Minimal proximal mixed plaque. Extracranial segment is patent with no occlusion or significant stenosis. No dissection. Left external carotid artery: No abnormality noted. No occlusion. Left vertebral artery: No abnormality noted. No occlusion or significant stenosis. No dissection. NECK: Bones/joints: No acute or atypical chronic changes. Degenerative changes in the spine. Soft tissues: No abnormality noted. Thyroid: 1.1 x 0.8 cm right thyroid nodule. Smaller left thyroid nodule present. No further assessment required. Lung apices: Clear. Other findings: There is a homogeneously enhancing 1.0 x 0.9 cm nodule in the right submandibular gland. No inflammation, ductal dilatation or stone. CAROTID STENOSIS REFERENCE USING NASCET CRITERIA: % ICA stenosis = (1 - narrowest ICA diameter/diameter of distal cervical ICA) x 100. Mild - <50% stenosis. Moderate - 50-69% stenosis. Severe - 70-94% stenosis. Near occlusion - 95-99% stenosis. Occluded - 100% stenosis. IMPRESSION: 1. No significant angiographic abnormality in the neck. 2. Chronic opacification left frontal, ethmoid and maxillary sinuses. 3. Indeterminate approximate 1 cm right submandibular nodule. Neoplasm and lymph node considered. Correlate clinically. ACT 112: Negative or not required by law. Electronically signed by Berta Guan 05-31-2024 13:39 PM
--- NOTE | 2024-05-31 13:40 | CT Scan Report ---
EXAM: CT Head Without Intravenous Contrast INDICATION: Unspecified neurologic deficit TECHNIQUE: Axial computed tomography images of the head/brain without intravenous contrast. Sagittal and/or coronal reformats are provided. Sagittal and coronal reformatted images were created and reviewed. This CT exam was performed using one or more of the following dose reduction techniques: automated exposure control, adjustment of the mA and/or kV according to patient size, and/or use of iterative reconstruction technique. COMPARISON: No relevant prior studies available. FINDINGS: Limitations: None. Brain and extra-axial spaces: There is age appropriate cortical atrophy and chronic ischemic periventricular white matter hypodensity. No acute infarct, hemorrhage or mass noted. Bones/joints: No acute changes. Soft tissues: No significant abnormality noted. Vasculature: No acute abnormality noted. Sinuses: There is chronic opacification of the left maxillary, ethmoid and frontal sinuses. Mastoid air cells: No mastoid effusion. Orbits: No significant abnormality noted. IMPRESSION: 1. Cerebral atrophy. No acute changes. 2. Chronic left frontal, ethmoid and maxillary sinus opacification. ACT 112: Negative or not required by law. Electronically signed by Berta Guan 05-31-2024 13:39 PM
[2024-05-31] MEDS ORDERED: ACETAMINOPHEN 325 MG TAB PO PRN (14:08)
--- NOTE | 2024-05-31 14:08 | History & Physical Report ---
Date of Service May 31, 2024 Assessment & Plan (1) Stroke-like symptoms: (2) Expressive aphasia: (3) Chronic anticoagulation: Plan: Presents with word finding difficulty, stroke -like symptoms as of this AM (10 AM) CT head wo contrast - 1. Cerebral atrophy. No acute changes. 2. Chronic left frontal, ethmoid and maxillary sinus opacification. CTA head and neck - 1. No significant angiographic abnormality in the neck. 2. Chronic opacification left frontal, ethmoid and maxillary sinuses. 3. Indeterminate approximate 1 cm right submandibular nodule. Neoplasm and lymph node considered. Correlate clinically. Not a thrombolytic candidate given pt on xarelto ED provider discussed w/ stroke neuro [facility] [place], Dr. Ibrahim Will obtain brain MRI Echo Fasting lipid panel, A1c - will further consult w/ [facility] neurology Afib - on xarelto, metoprolol CKD stage 3 - hold lisinopril for now, monitor BP, monitor renal function HTN - hold lisinopril, monitor BP - pt also on amlodipine, reports he took his AM meds DM 2 - A1c 6.7% in 03/2024 - hold oral agents for now Submandibular nodule - incidental finding on CT - follow up as outpt History of Present Illness Chief Complaint: word finding difficulty, stroke-like symptoms Primary Care Provider: Nic Durbin MD 78 M w/ Hx of DM type 2, Afib on xarelto , CKD stage 3a, who presents with word finding difficulty , which started this AM, at 10 AM. Pt is laying in bed in [facility], pt's present at the bedside. Reports speech is improving but not back to baseline yet. Denies any weakness in any extremity. Denies any vision changes. Denies any fever, chills, chest pain, shortness of breath, abd. pain, n/v. ED provider discussed w/ stroke neuro at [facility] [place] Dr. Ibrahim - pt is not a thrombolytic candidate given he is on xarelto. Pt confirms with me that he is taking all his meds regularly as prescribed, no missing doses. Allergies Allergy/AdvReac Type Severity Reaction Status Date / Time No Known Allergies Allergy Verified 07/11/21 11:48 Home Medications Medication Instructions Recorded Confirmed Type dapagliflozin propanediol 10 mg 10 mg PO UD 07/11/21 05/31/24 History tablet (Farxiga) glimepiride 1 mg tablet 1 mg PO UD 07/11/21 05/31/24 History metformin 500 mg tablet 1,000 mg PO UD 07/11/21 05/31/24 History rivaroxaban 20 mg tablet (Xarelto) 20 mg PO UD 07/11/21 05/31/24 History sitagliptin phosphate 100 mg 100 mg PO UD 07/11/21 05/31/24 History tablet (Januvia) amlodipine 5 mg tablet 5 mg PO DAILY 05/31/24 05/31/24 History cetirizine 10 mg tablet 10 mg PO DAILY 05/31/24 05/31/24 History fluticasone propionate 50 2 spray intranasal DAILY 05/31/24 05/31/24 History mcg/actuation nasal spray,suspension lisinopril 10 mg tablet 20 mg PO UD 05/31/24 05/31/24 History metoprolol succinate 50 mg 50 mg PO UD 05/31/24 05/31/24 History tablet,extended release 24 hr Past Med/Surg History Problem List Chronic anticoagulation (Acute) Stroke-like symptoms (Acute) Expressive aphasia (Acute) Medical History DVT prophylaxis Hypertension Microscopic hematuria Elevated troponin Influenza A Sepsis Type 2 diabetes mellitus Atrial fibrillation Social History Smoking Status: Former smoker Second Hand Exposure: Yes; Do You Dip or Chew Tobacco: No; Hx Alcohol Use: Yes Alcohol type: beer, wine and hard liquor Hx Substance Use: No Preferred Language: Mosotho Communication Ability: Effective Fiscal Accountant Required: No Beliefs That Will Affect Care: None Current Living Situation: Spouse Feels Safe at Home: Yes Assistive Devices: None Review of Systems Review of Systems: All systems reviewed & are unremarkable except as noted in HPI & below Physical Exam Constitutional: WD/WN, vitals as above Eyes: PERRL, conjunctivae normal, anicteric sclerae ENMT: external ear and nose normal, oropharynx normal Neck: trachea midline, no thyromegaly Respiratory: normal respiratory effort, lungs clear to auscultation Cardiovascular: Rate/Rhythm: + irregularly irregular Chest (Breasts): Chest: normal inspection of chest Gastrointestinal (Abdomen): normal bowel sounds, soft, nontender, no hepatosplenomegaly Musculoskeletal: moves extremities, no weakness noted Skin: no rashes, warm and dry Neurologic: + words finding difficulty occasionally observed, moves extremities, no weakness noted, no facial asymmetry Psychiatric: A+Ox3, euthymic affect Results & Data Results & Data Vital Signs (Past 12 Hours) Vital Signs Temp Pulse Pulse Resp BP BP Pulse Ox 05/31/24 13:50 80 16 161/82 H 97 05/31/24 12:37 91 H 20 161/107 H 98 05/31/24 12:34 94 H 05/31/24 12:04 36.9 C 88 16 173/84 H 96 O2 Del Method 05/31/24 13:50 Room Air 05/31/24 12:37 Room Air 05/31/24 12:34 05/31/24 12:04 Room Air Laboratory Results 05/31/24 05/31/24 05/31/24 Range/Units 12:31 12:26 12:25 WBC 8.32 (4.8-10.8) K/ul RBC 4.70 (4.70-6.10) M/uL Hgb 13.3 L (14.0-18.0) g/dl POC Hgb 14.3 (14.0-18.0) g/dl Hct 41.2 L (42.0-52.0) % POC Hct 42 (42-52) % MCV 87.7 (80.0-100.0) fL MCH 28.3 (25.0-34.0) pg MCHC 32.3 (32.0-36.0) g/dL RDW Std Deviation 45.1 (36.4-46.3) fL RDW Coeff of Leila 14.0 (11.5-14.5) % Plt Count 209 (130-400) K/uL MPV 10.4 (9.4-12.4) fL PT 11.8 (9.0-12.0) Seconds INR 1.1 (0.9-1.1) APTT 32 H (21-31) Seconds PTT Ratio 1.2 POC Sodium 134 L (135-144) mmol/L Sodium 131 L (136-145) mmol/L POC Potassium 4.5 (3.3-5.0) mmol/L Potassium 4.5 (3.5-5.1) mmol/L POC Chloride 99 L (101-112) mmol/L Chloride 100 (98-107) mmol/L Carbon Dioxide 25 (21-32) mmol/L POC Total CO2 23 L (24-31) mmol/L Anion Gap 6 (3-11) POC Anion Gap 17.0 (16-25) mmol/L POC BUN 21 H (7-18) mg/dl BUN 22 (6-23) mg/dl Creatinine 1.37 (0.6-1.4) mg/dl POC Creatinine 1.4 H (0.6-1.3) mg/dl Est Cr Clr Drug Dosing 47.7 ml/min eGFR 52.80 BUN/Creatinine Ratio 16.1 (10-20) Glucose 253 H (70-99(Fasting)) mg/dl POC Glucose 236 H (70-99) mg/dl POC Glucose (other) 241 H (70-99) mg/dl Calcium 8.5 L (8.6-10.3) mg/dl POC Ioniz Calcium Marin 1.07 L (1.12-1.32) mmol/l Magnesium 1.9 (1.7-2.4) mg/dl Total Bilirubin 0.3 (0.2-1.0) mg/dl AST 16 (13-39) U/L ALT 17 (7-52) U/L Alkaline Phosphatase 52 (34-104) U/L Total Protein 5.8 L (6.0-8.3) gm/dl Albumin 3.6 (3.4-5.0) gm/dl Globulin 2.2 L (2.5-4.0) gm/dl Albumin/Globulin Ratio 1.6 (0.9-2) Blood Type O Positive Antibody Screen NEGATIVE
--- NOTE | 2024-05-31 14:54 | Magnetic Resonance Report ---
MRI of the brain performed without IV contrast History: Speech changes Comparison: No prior MRI Technique: Sagittal T1-weighted and axial T2-weighted, T2/FLAIR and diffusion-weighted with ADC map images of the brain were obtained without IV contrast. Findings: No evidence for intracranial mass lesion, mass-effect, midline shift, or abnormal extra-axial fluid collection. There is moderate generalized cerebral atrophy. Mild scattered high signal intensity change throughout the white matter T2/FLAIR, consistent with chronic small vessel ischemic disease. There is a single punctate focus of restricted diffusion in the posterior left temporal lobe at the operculum, within the region of Warnicke's area. Normal intravascular flow voids. Impression: There is a single punctate focus of restricted diffusion due to acute infarct in the posterior left temporal lobe at the operculum, within the region of Warnicke's area. Electronically signed by Jorge Elder 05-31-2024 2:48 PM
[2024-05-31] MEDS: METOPROLOL SUCC 50MG EXT REL TAB PO SCH (17:49)
[2024-05-31 18:05] VITALS: RESP 18
--- NOTE | 2024-05-31 19:04 | Neurology Consultation ---
Date of Consultation May 31, 2024 Assessment & Plan (1) Expressive aphasia: 78 yo man w/ h/o HLD, HTN, Afib (on xarelto) who presents for word-finding difficulty. MRI returned with small l temporal stroke. CTA unremarkable for large vessel occlusion or athersclerosis. Etiology of stroke likely relates to h istory of Afib despite apparent AC (pt was not familiar with xarelto when I mentioned it). Would recommend continuing xarelto ( could consider switching to eliquis) and management of stroke risk factors. Fortunately symptoms are improving, pt only wiht occasional paraphasic errors. 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 After connecting through interactive tele-video, patient was identified by name and date of and/or wristband check.Patient (or authorized healthcare compliance representative dealer) was informed that this was a telemedicine visit and it was being conducted confidentially over secure lines. My office door was closed and no one else was present in the room with me.Patient (or authorized healthcare compliance representative dealer) provided consent to proceed with the visit, expressed an understanding of privacy and security of the telemedicine visit, and gave permission to have a hospital compliance representative dealer in the room in order to assist with the visit and to conduct portions of the visit, as needed. I informed the patient (or authorized healthcare compliance representative dealer) that I reviewed their record and presented the opportunity for them to ask any questions regarding the visit today. The patient agreed to participate. History of Present Illness Reason for Consultation: stroke Attending Physician: Jose Francisco Lopez MD History of Present Illness Pt with history of HTN, DM2, CKD, afib (on xarelto) presents with sudden onset speech difficult 10 AM today. No weakness associated. No TNK due to AC usage. Pt admitted for stroke work-up. He currently states that symptoms are overall improving but does notice some word finding difficulty. No weakness. Allergies Allergy/AdvReac Type Severity Reaction Status Date / Time No Known Allergies Allergy Verified 07/11/21 11:48 Home Medications Medication Instructions Recorded Confirmed Type dapagliflozin propanediol 10 mg 10 mg PO UD 07/11/21 05/31/24 History tablet (Farxiga) glimepiride 1 mg tablet 1 mg PO UD 07/11/21 05/31/24 History metformin 500 mg tablet 1,000 mg PO UD 07/11/21 05/31/24 History rivaroxaban 20 mg tablet (Xarelto) 20 mg PO UD 07/11/21 05/31/24 History sitagliptin phosphate 100 mg 100 mg PO UD 07/11/21 05/31/24 History tablet (Januvia) amlodipine 5 mg tablet 5 mg PO DAILY 05/31/24 05/31/24 History cetirizine 10 mg tablet 10 mg PO DAILY 05/31/24 05/31/24 History fluticasone propionate 50 2 spray intranasal DAILY 05/31/24 05/31/24 History mcg/actuation nasal spray,suspension lisinopril 10 mg tablet 20 mg PO UD 05/31/24 05/31/24 History metoprolol succinate 50 mg 50 mg PO UD 05/31/24 05/31/24 History tablet,extended release 24 hr Patient History Medical History DVT prophylaxis Hypertension Microscopic hematuria Elevated troponin Influenza A Sepsis Type 2 diabetes mellitus Atrial fibrillation Social History Smoking Status: Former smoker Tobacco Type: Cigars Second Hand Exposure: Yes; Do You Dip or Chew Tobacco: No; Hx Alcohol Use: Yes Alcohol type: beer, wine and hard liquor Hx Substance Use: No Preferred Language: Vincentian Communication Ability: Effective Editor Book Required: No Beliefs That Will Affect Care: None Current Living Situation: Spouse Other Information That Helps Us Care for You: No Feels Safe at Home: Yes Safety Concerns: Feels Safe At This Time Assistive Devices: None Review of Systems negative aside from hpi Physical Exam Pt resting comfortably in bed, no gaze deviation, pupils equal and symmetric, no facial droop able to lift all four extremities against gravity. Occasional paraphasic errors but speech overall fluent. Able to repeat, name simple objects with one phonemic error. Results & Data Vital Signs (Past 12 Hours) Vital Signs Temp Pulse Pulse Resp BP BP Pulse Ox 05/31/24 18:48 05/31/24 18:04 36.7 C 93 H 18 166/81 H 96 05/31/24 16:53 76 16 141/79 H 97 05/31/24 16:23 79 16 141/79 H 97 05/31/24 15:14 80 16 149/112 H 95 05/31/24 15:14 80 16 95 05/31/24 13:50 80 16 161/82 H 97 05/31/24 12:37 91 H 20 161/107 H 98 05/31/24 12:34 94 H 05/31/24 12:04 36.9 C 88 16 173/84 H 96 O2 Del Method 05/31/24 18:48 Room Air 05/31/24 18:04 Room Air 05/31/24 16:53 Room Air 05/31/24 16:23 Room Air 05/31/24 15:14 Room Air 05/31/24 15:14 Room Air 05/31/24 13:50 Room Air 05/31/24 12:37 Room Air 05/31/24 12:34 05/31/24 12:04 Room Air Diagnostic Findings MRI Brain 05/31 - Small punctate L parietal stroke CTA H/N 05/31 - no large vessel occlusion or significant atherosclerosis Medications Administered Per chart
--- NOTE | 2024-06-01 07:24 | Electrocardiogram Report ---
Test Reason : Blood Pressure : */* mmHG Vent. Rate : 97 BPM Atrial Rate : * BPM P-R Int : * ms QRS Dur : 124 ms QT Int : 384 ms P-R-T Axes : * 83 5 degrees QTcB Int : 487 ms Atrial fibrillation Right bundle branch block Abnormal ECG When compared with ECG of 12-Jul-2021 09:26, Right bundle branch block is now Present Confirmed by Jorge Levine ([id number]) on 06/01/2024 7:24:40 AM Referred By: REFERRED SELF Confirmed By: Jorge Levine
[2024-06-01 07:28] LABS: Hematocrit (blood only) 47.7 % (42.0-52.0); Hemoglobin 15.9 g/dl (14.0-18.0); Mean Corpuscular Hemoglobin 28.5 pg (25.0-34.0); Mean Corpuscular Hgb Conc 33.3 g/dL (32.0-36.0); Mean Corpuscular Volume 85.5 fL (80.0-100.0); Mean Platelet Volume 10.8 fL (9.4-12.4); Platelet Count 229 K/uL (130-400); RDW Coefficient of Variation 13.9 % (11.5-14.5); RDW Standard Deviation 43.5 fL (36.4-46.3); Red Blood Count 5.58 M/uL (4.70-6.10); White Blood Count 9.14 K/ul (4.8-10.8)
[2024-06-01 07:49] LABS: BUN Creatinine Ratio 14.4 (10-20); Calcium 9.2 mg/dl (8.6-10.3); Chol HDL Ratio 4.5 (0-5); Creatinine Clr Calc Pharmacy 55.4 ml/min; Phosphorus 2.6 mg/dl (2.5-4.9); Potassium 4.4 mmol/L (3.5-5.1)
[2024-06-01 08:05] VITALS: TEMP 98.4
[2024-06-01 08:59] LABS: Estimated Average Glucose 154 mg/dl
[2024-06-01] MEDS: SODIUM CHLORIDE 0.9% 500 ML IV ONE (09:39)
[2024-06-01] MEDS: CETIRIZINE HCL 10 MG TABLET PO SCH (09:40)
[2024-06-01 12:24] VITALS: BP 165/82; PULSE 77; O2SAT 95
--- NOTE | 2024-06-01 13:09 | Discharge Summary ---
Discharge Summary Date of Service June 01, 2024 Principal Dx & Hospital Course #1 = Principal Diagnosis (1) Stroke-like symptoms: (2) Expressive aphasia: (3) Chronic anticoagulation: #Left Temporal Stroke -start statin, continue xarelto -f/u with neurology, speech, OT outpatient Afib - on xarelto, metoprolol CKD stage 3 - hold lisinopril for now, monitor BP, monitor renal function HTN - hold lisinopril, monitor BP - pt also on amlodipine, reports he took his AM meds DM 2 - A1c 6.7% in 03/2024 - hold oral agents for now Submandibular nodule - incidental finding on CT - follow up as outpt Notes For Next Care Provider 78-year-old male past medical history of A-fib on Xarelto, CKD stage III AAA, diabetes who presented with word finding difficulty. MRI head revealed left temporal infarct in the operculum consistent with the expressive aphasia, and Warnicke's area. PT OT and speech were consulted before discharge recommended outpatient follow-up. Started statin given elevated LDL. Patient is medically stable for discharge home. Medication Changes From Visit -atorvastatin 40 mg Admission HPI Per Admitting Provider 78 M w/ Hx of DM type 2, Afib on xarelto , CKD stage 3a, who presents with word finding difficulty , which started this AM, at 10 AM. Pt is laying in bed in [facility], pt's present at the bedside. Reports speech is improving but not back to baseline yet. Denies any weakness in any extremity. Denies any vision changes. Denies any fever, chills, chest pain, shortness of breath, abd. pain, n/v. ED provider discussed w/ stroke neuro at [facility] [place] Dr. Ibrahim - pt is not a thrombolytic candidate given he is on xarelto. Pt confirms with me that he is taking all his meds regularly as prescribed, no missing doses. Discharge Exam Gen: A&O 3 NAD HEENT: NCAT, EOMI, not icteric. External ears normal. No rhinorrhea. Moist mucous membranes. Neck: Supple, full range of motion, no observable masses, No meningeal sign. Lungs: No Respiratory distress. CV: RRR, no edema. Abdomen: Soft, nondistended, No rebound tenderness. MSK: No joint swelling, no redness. Skin: No rashes, petechiae, lesions. Normal color per patient. Neuro: neuro exam grossly unremarkable other than word finding difficulties, some very mild receptive deficits Psych: Appropriate for situation. Updated Medication List Medication Instructions Recorded Confirmed Type dapagliflozin propanediol 10 mg 10 mg PO UD 07/11/21 05/31/24 History tablet (Farxiga) glimepiride 1 mg tablet 1 mg PO UD 07/11/21 05/31/24 History metformin 500 mg tablet 1,000 mg PO UD 07/11/21 05/31/24 History rivaroxaban 20 mg tablet (Xarelto) 20 mg PO UD 07/11/21 05/31/24 History sitagliptin phosphate 100 mg 100 mg PO UD 07/11/21 05/31/24 History tablet (Januvia) amlodipine 5 mg tablet 5 mg PO DAILY 05/31/24 05/31/24 History cetirizine 10 mg tablet 10 mg PO DAILY 05/31/24 05/31/24 History fluticasone propionate 50 2 spray intranasal DAILY 05/31/24 05/31/24 History mcg/actuation nasal spray,suspension lisinopril 10 mg tablet 20 mg PO UD 05/31/24 05/31/24 History metoprolol succinate 50 mg 50 mg PO UD 05/31/24 05/31/24 History tablet,extended release 24 hr atorvastatin 40 mg tablet 40 mg PO DAILY #30 tabs 06/01/24 Rx Hospital Stay Data Consultations 05/31/24 15:13 Consult Neurology Routine 05/31/24 15:27 ED Decision to Admit Stat 05/31/24 16:13 Consult Neurology Routine Diagnostic Imagining Performed 05/31/24 12:08 CT head/brain wo con Stat 05/31/24 12:10 CT angio head w con Stat CT angio neck with con Stat 05/31/24 13:29 MR brain wo con Stat Pending Results Patient Have Any Pending Studies at Discharge: No Discharge Instructions Given to Patient (Per Discharging Provider) 1. Please follow up with neurology, speech/occupational therapy, and neurology. 2. Please take medications as prescribed. Total Time Total Time Spent Total Time Spent (In Minutes): I spent a total of 45 minutes coordinating, documenting, and providing care for this patient excluding time spent in the performance of separately billed services.
== END 2024-06-01 15:09 | disposition home or self-care (01) | DRG 66 ==
LOC: ED 12:02 → EDINP 14:08 → SUATTDRO 14:08 → 2N 17:00

== ENCOUNTER 2024-09-20 07:12 | Inpatient (IN) ==
--- OUTSIDE RECORDS SUMMARY | 2024-09-20 07:18 | External Medical Summary | Summary of Care ---
Author Name Unknown Organization [facility] Address [address] [place] [address] Phone [phone] Care Team Providers Care Cash Office Worker Name Role Phone Nic Durbin MD Primary Care Provider +1- [phone] Reason for Visit * Reason Onset Date Comments Nurse Documentation 07/29/2024 Encounter Details Date Type Department Care Team (Late st Contact Info) Description 07/29/2024 Telephone [facility] Julita Zhu [address] [place] [phone] Nic Durbin MD 226 [facility] [place] [address] Nurse Documentation Allergies No known active allergiesdocumented as of this encounter (statuses as of 07/30/2024) Medications Metoprolol Succinate 50 MG Oral Capsule ER 24 Hour SprinkleIndicati ons:Permanent atrial fibrillation (HCC) Take 50 mg by mouth in the morning and 50 mg before bedtime. 180 Capsule 3 4 Active amLODIPine Besylate 5 MG Oral Tablet (Norvasc)Indicat ions:HTN, goal below 130/80 TAKE 1 TABLET BY MOUTH EVERY DAY IN THE MORNING 90 Tablet 3 4 Active Lisinopril 30 MG Oral TabletIndication s:Type 2 diabetes mellitus with hemoglobin A1c goal [...] the morning. 90 Tablet 3 4 Active Additional Information Patient not taking.Reported on 06/16/2024 Fluticasone Propionate 50 MCG/ACT Nasal Suspension (Flonase) Administer 2 Sprays into each nostril in the morning. 16 g 1 4 Active Additional Information Patient not taking.Reported on 06/16/2024 Fluorouracil 5 % External Cream (Efudex)Indicati ons:Actinic keratosis Start May or 2024: apply thin layer to forehead and entire scalp 2x daily for 3 weeks, then please send photos through My Chart at the end of the treatment. 40 g 1 4 Active Additional Information Patient not taking.Reported on 06/10/2024 Atorvastatin Calcium 40 MG Oral Tablet (Lipitor)Indicat ions:Dyslipidemi a, goal LDL below 70 Take 1 Tablet by mouth in the morning. 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 180 Tablet 3 5 Active documented as of this encounter (statuses as of 07/30/2024) Active Problems Problem Noted Date Diagnosed Date History of CVA (cerebrovascular accident) 2024 Chronic rhinitis 06/16/2024 HTN, goal below 130/80 06/03/2024 Dyslipidemia, goal LDL below 70 06/03/2024 Chronic kidney disease, stage 3a 12/24/2023 Overview: [...] h hemoglobin A1c goal of less than 7.0% 05/31/2016 documented as of this encounter (statuses as of 07/30/2024) Resolved Problems Problem Noted Date Diagnosed Date Resolved Date Atrial fibrillation 05/31/2016 11/21/19 24 Microalbuminuria 05/31/2016 10/26/2021 documented as of this encounter (statuses as of 07/30/2024) Immunizations Name Administration Dates Next Due COVID-19 mRNA, LNP-s, No Pre serve, 2-Dose Series ([employer]) 07/23/2020,06/25/2020 COVID-19, MRNA-LNP, PF, 50 M CG/0.5 [...] Types Packs/Day Years Used Date Smoking Tobacco: Former Cigars Passive Smoke Exposure: Never Smokeless Tobacco: Never Alcohol Use Standard Drinks/Week Comments Yes 0 (1 standard drink = 0.6 oz pur e alcohol) 1 beer every 2 weeks PHQ-2 Answer Date Recorded PHQ Adult Total [...] ages 0-17 years) Not on file 11/21/2023 Food Insecurity Answer Date Recorded Within the past 12 months, y ou worried that your food would run out before you got the money to buy more. Never true 11/21/19 24 Within the past 12 months, t he food you bought just didn't last and you didn't have money to get more. Never true 11/21/2023 Do you need food for this week? No 11/21/2023 Sex and Gender Information Value Date Recorded Sex Assigned at Male 02/14/2022 8:05 AM EDT Legal Sex Male 7:07 AM EDT Gender Identity Male 02/14/2022 8:05 AM EDT Sexual Orientation Straight 02/24/2019 7: 27 AM EDT documented as of this encounter Miscellaneous Notes * Telephone Encounter - Mere Wood MED ASSIST - 07/29/2024 5:37 PM EDT Received Fax for BFPROVIDERS: Dr. Nic Durbin ORDER received from [facility] and FAXED documented in this encounter Plan of Treatment Upcoming Encounters Date Type Department Care Team (Late st Contact Info) Description 12/22/2024 7:40 AM EDT Office Visit [facility] [place] Julita Zhu [address] [phone] Nic Durbin MD [address] [place] [address] 01/13/2025 8:00 AM EDT Office Visit Neurology [facility] [address] [place] [address] Adarsh Lincoln, DO [address] [place] [address] 06/25/2025 7:40 AM EST Office Visit Dermatology, [address] [phone] Hilary Faith PA-C [address] [place] [address] [place] [address] Health Maintenance Due Date Last Done Comments CKD PHOS USE SMARTSET 42186 09/12/1963 Adult Wellness Visit 09/12/2011 COVID-19 Vaccine ( season) 2024 03/19/2023, 03/29/2021, 07/23/2020, Additional history exists Influenza Vaccine (FLU shot) (#1) 2024 03/19/2023, 05/01/2022, 04/25/2021, Additional history exists Albumin/Creatinine Ratio 11/19/2024 024, 10/24/2021, 08/20/2018, Additional history exists Depression Screening 11/20/2024 11/21/2023 Diabetic Foot Exam 11/20/2024 11/21/2023, 1 05/26/2017, 05/25/2017 GFR 12/11/2024 06/13/2024, 03/14, 11/20/2023, Additional history exists HbA1c 12/11/2024 06/13/2024, 03/14, 11/20/2023, Additional history exists Diabetic Eye Exam 01/27/2025 01/28/2024, , 01/28/2024 (Done elsewhere), Additional history exists B-12 06/13/2025 06/13/2024, 09/2023, 05/01/2022, Additional history exists CKD HGB USE SMARTSET 97252 06/13/202506/13, 06/13/2024, 11/20/2023, Additional history exists DTap/Tdap Vaccines (2 - Td or Tdap) 05/15/2033 05/15/2023, 02/16/2014 Zoster Vaccines Discontinued 01/19/2014 Pneumococcal Vaccine: 50+ Years Completed 11/07/2016, 11/23/2014 HPV (Gardasil) Vaccine Aged Out No lo nger eligible based on patient's age to complete this topic Hepatitis B Vaccine Aged Out No longe r eligible based on patient's age to complete this topic Hepatitis C Screening Discontinued MENINGOCOCCAL (MENACTRA/MENVEO) Aged Out No longer eligible based on patient's age to complete this topic Meningitis B Vaccine (Bexsero/Trumemba) Aged Out No longer eligible based on patient's age to complete this topic documented as of this encounter Medical Devices Not on filedocumented as of this encounter Advance Directives Documents on File Type Date Recorded Patient Lathing Supervisor Expl anation Advance Directives and Living Will 01/03/2005 LIVING WILL Power of Hydroelectric Station Operator 01/03/2005 POWER OF A TTORNEY [facility] GENERAL POWER OF SOIL EXPERT Care Teams Cash Office Worker Relationship Specialty Start Date End Date Nic Durbin MD [address] [address] PCP - General Family Medicine 06/10/24 documented as of this encounter
--- OUTSIDE RECORDS SUMMARY | 2024-09-20 07:18 | External Medical Summary | Summary of Care ---
Author Name Unknown Organization [facility] Address [address] [facility] [place] [address] Phone [phone] Care Team Providers Care Steelscope Operator Name Role Phone Nic Durbin MD Primary Care Provider +1- [phone] Reason for Visit * Reason Onset Date Comments Test Results Imaging Study 06/19/2024 Encounter Details Date Type Department Care Team (Late st Contact Info) Description 06/19/2024 Telephone Otolaryngology [facility] [address] [place] [address] Virgil Kerr PA-C [address] [place] [address] Test Results Imaging Study Allergies No known active allergiesdocumented as of this encounter (statuses as of 06/19/2024) Medications Metoprolol Succinate 50 MG Oral Capsule [...] as of this encounter (statuses as of 06/19/2024) Active Problems Problem Noted Date Diagnosed Date [...] as of this encounter (statuses as of 06/19/2024) Resolved Problems Problem Noted Date Diagnosed Date Resolved Date Atrial fibrillation 05/31/2016 11/21/19 24 Microalbuminuria 05/31/2016 10/26/2021 documented as of this encounter (statuses as of 06/19/2024) Immunizations Name Administration Dates Next Due COVID-19 mRNA, LNP-s, No Pre serve, 2-Dose Series ([employer]) 07/23/2020,06/25/2020 COVID-19, MRNA-LNP, PF, 50 M CG/0.5 [...] encounter Miscellaneous Notes * Telephone Encounter - Barb Barrios LPN - 06/19/2024 4:48 PM EST Called patient verbalized understanding. States he would like to see how things go before moving forward with an appointment. * Telephone Encounter - Virgil Kerr PA-C - 06/19/2024 11:36 AM EST Please let pt and family know CT scan showed: No neck masses or suspicious lesions. There was very small (2 mm) salivary stone in the R parotid gland. No signs of this obstruction theduct or infection. Recommend sucking on sour candies, staying well hydrated, warm compresses if becomes bothersome should be seen. No further intervention needed at this time. The scan did show signs of chronic sinus disease. Would recommend saline nasal irrigations and nasal spray as directed by Dr. Adam. If he would like, follow up in 3 mo to see how sinuses are doing after regimented sinus treatment, sooner with any concerns. Please assist in scheduling this with Dr. Adam if pt is agreeable. Thank you! Virgil Kerr PA-C IMPRESSION 1. Tiny sialolith in the right superficial parotid gland. No associated ductal dilatation or inflammation suspicious for sialoadenitis. 2. No discrete submandibular masses are demonstrated. 3. No pathologic cervical adenopathy. 4. Left ostiomeatal complex obstruction with opacification of the left maxillary sinus and anteriorethmoid air cells. Mixed density material within the left maxillary sinus and associated hyperostosis raises the possibility of chronic fungal colonization. 5. Bilateral hypodense thyroid nodules, largest on the right measuring 1.3 cm. No follow-up recommended unless deemed clinically necessary. 6. Additional findings as above. documented in this encounter Plan of Treatment Upcoming Encounters Date Type Department Care Team (Late st Contact Info) Description 12/22/2024 7:40 AM EDT Office Visit [facility] [place] [phone] Nic Durbin MD 226 [facility] [place] [address] 01/13/2025 8:00 AM EDT Office Visit Neurology [facility] [address] [place] [address] Adarsh Lincoln, DO [address] [place] [address] 06/25/2025 7:40 AM EST Office Visit Dermatology, [place] [address] 226 [facility] [place] [phone] Hilary Faith PA-C [address] [place] [address] [place] [address] Health Maintenance Due Date Last Done Comments CKD PHOS USE SMARTSET 90670 09/12/1963 Adult Wellness Visit 09/12/2011 COVID-19 Vaccine [...] Additional history exists CKD HGB USE SMARTSET 52211 06/13/202506/13, 06/13/2024, 11/20/2023, Additional history exists DTap/Tdap [...] Documents on File Type Date Recorded Patient Outside Machinist Apprentice Expl anation Advance Directives and Living Will 01/03/2005 LIVING WILL Power of Sporting Goods Sales Associate 01/03/2005 POWER OF A TTORNEY DURABLE GENERAL POWER OF PANTOGRAPH SETTER Care Teams Steelscope Operator Relationship Specialty Start Date End Date Nic Durbin MD [address] [place] [address] PCP - General Family Medicine 06/10/24 documented as of this encounter
--- OUTSIDE RECORDS SUMMARY | 2024-09-20 07:18 | External Medical Summary | Summary of Care ---
Author Name Unknown Organization [facility] Address [address] [place] [address] Phone [phone] Care Team Providers Care Sales Architect Name Role Phone Nic Durbin MD Primary Care Provider +1- [phone] Reason for Visit * Reason Comments Outpatient Testing Encounter Details Date Type Department Care Team (Late st Contact Info) Description 06/13/2024 8:00 AM EST Laboratory Laboratory, [facility] [address] [place] [address] [facility] [address] [place] [address] HTN, goal below 130/80; Dyslipidemia, goal LDL below 70; Chronic kidney disease, stage 3a (HCC); Type 2 diabetes mellitus with hemoglobin A1c goal of less than 7.0% (HCC); Mass of submandibular region; Encounter for long-term (current) use of medications Allergies No known active allergiesdocumented as of this encounter (statuses as of 06/13/2024) Medications Metoprolol Succinate 50 MG Oral Capsule [...] 06/10/2024 Atorvastatin Calcium 40 MG Oral Tablet (Lipitor)Indicati ons:Dyslipidemia, goal LDL below 70 Take 1 Tablet by mouth in the morning. 90 Tablet 1 5 Active Amoxicillin-Pot Clavulanate 875-125 MG Oral Tablet (Augmentin)Indica tions:Mass of submandibular region,Chronic sinusitis, unspecified location Take 1 Tablet by mouth in the morning and 1 Tablet before bedtime. Do all this for 10 days. 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 180 Tablet 3 5 Active documented as of this encounter (statuses as of 06/13/2024) Active Problems Problem Noted Date Diagnosed Date HTN, goal below 130/80 06/03/2024 Dyslipidemia, goal [...] as of this encounter (statuses as of 06/13/2024) Resolved Problems Problem Noted Date Diagnosed Date Resolved Date Atrial fibrillation 05/31/2016 11/21/19 24 Microalbuminuria 05/31/2016 10/26/2021 documented as of this encounter (statuses as of 06/13/2024) Immunizations Name Administration Dates Next Due COVID-19 mRNA, LNP-s, No Pre serve, 2-Dose Series ([address]) 07/23/2020,06/25/2020 COVID-19, MRNA-LNP, PF, 50 M CG/0.5 [...] Office Visit Family Practice, Boaz Zhu [address] [place] [phone] Nic Durbin MD 226 [facility] [place] [address] 06/18/2024 1:30 PM EST Imaging Radiology [address] [place] [phone] 01/13/2025 8:00 AM EDT [facility] [place] [address] [place] [address] Adarsh Lincoln, [address] [place] [address] 06/25/2025 7:40 AM EST Office Visit Dermatology, Boaz Thomas [address] [phone] Hilary Faith PA-C [address] [place] [address] [place] [address] Pending Results Name Type Priority Associated Diagnoses Date /Time LIPID PANEL WITH DIRECT LDL IF TG IS HIGH Lab Routine HTN, goal below 130/80 Dyslipidemia, goal LDL below 70 06/13/2024 7:58 AM EST COMPREHENSIVE METABOLIC PANEL Lab Routine HTN, goal below 130/80 Chronic kidney disease, stage 3a (HCC) Dyslipidemia, goal LDL below 70 06/13/2024 7:58 AM EST HEMOGLOBIN A1C Lab Routine Type 2 diabetes mellitus with hemoglobin A1c goal of less than 7.0% (HCC) 06/13/2024 7:58 AM EST CBC WITH WBC DIFFERENTIAL Lab Routine Mass of submandibular region 06/13/2024 7:58 AM EST VITAMIN B12 Lab Routine Encounter for long-term (current) use of medications 06/13/2024 7:58 AM EST CBC Lab Routine Mass of submandibular region 06/13/2024 7:58 AM EST DIFFERENTIAL, AUTOMATED Lab Routine Mass of submandibular region 06/13/2024 7:58 AM EST Health Maintenance Due Date Last Done Comments CKD PHOS USE SMARTSET 36277 09/12/1963 Adult Wellness Visit 09/12/2011 COVID-19 Vaccine [...] Additional history exists CKD HGB USE SMARTSET 16302 11/19/202411/19, 10/24/2021, 06/02/2020, Additional history exists Depression [...] as of this encounter Visit Diagnoses Diagnosis HTN, goal below 130/80 Unspecified essential hypertension Dyslipidemia, goal LDL below 70 Other and unspecified hyperlipidemia Chronic kidney disease, stage 3a (HCC) Type 2 diabetes mellitus with hemoglobin A1c goal of less than 7.0% (HCC) Mass of submandibular region Swelling, mass, or lump in head and neck Encounter for long-term (current) use of medications Encounter for long-term (current) use of other medications documented in this encounter Advance Directives Documents on File Type Date Recorded Patient Legal Specialist Expl anation Advance Directives and Living Will 01/03/2005 LIVING WILL Power of Experience Planning Strategist 01/03/2005 POWER OF A TTORNEY DURABLE GENERAL POWER OF HSE SPECIALIST Care Teams Sales Architect Relationship Specialty Start Date End Date Nic Durbin MD [address] [place] [address] PCP - General Family Medicine 06/10/24 documented as of this encounter
--- OUTSIDE RECORDS SUMMARY | 2024-09-20 07:18 | External Medical Summary ---
Author Name Unknown Address Unknown Organization K01:LABORATORY [facility] [place] - [address] [place] [address] Laboratory Report Ordering Provider Test Date Status JOB MATHEW 06/13/2024 07:58:34 Final Observation Date Value Abnormality Reference (Units ) Status Vitamin B12 06/13/2024 07:58:34 [phone] (pg/mL) Final Performing Location LABORATORY [facility] - [address] [place] [address]
--- OUTSIDE RECORDS SUMMARY | 2024-09-20 07:18 | External Medical Summary | Summary of Care ---
Author Name Unknown Organization [facility] Address [address] [place] [address] Phone [phone] Care Team Providers Care Tower Erector Helper Name Role Phone Nic Durbin MD Primary Care Provider +1- [phone] Reason for Visit * Reason Onset Date Comments Nurse Documentation 08/05/2024 Encounter Details Date Type Department Care Team (Late st Contact Info) Description 08/05/2024 Telephone [facility] Julita Zhu [address] [place] [address] Nic Durbin MD 226 [place] [address] Nurse Documentation Allergies No known active allergiesdocumented as of this encounter (statuses as of 08/06/2024) Medications Metoprolol Succinate 50 MG Oral Capsule [...] as of this encounter (statuses as of 08/06/2024) Active Problems Problem Noted Date Diagnosed Date [...] as of this encounter (statuses as of 08/06/2024) Resolved Problems Problem Noted Date Diagnosed Date Resolved Date Atrial fibrillation 05/31/2016 11/21/19 24 Microalbuminuria 05/31/2016 10/26/2021 documented as of this encounter (statuses as of 08/06/2024) Immunizations Name Administration Dates Next Due COVID-19 mRNA, LNP-s, No Pre serve, 2-Dose Series ([employer]) 07/23/2020,06/25/2020 COVID-19, MRNA-LNP, PF, 50 M CG/0.5 [...] Encounter - Mere Wood MED ASSIST - 08/05/2024 3:28 PM EDT Received Fax for BFPROVIDERS: Dr. Nic Durbin ORDER received from [facility] FAXED documented in this encounter Plan of Treatment Upcoming Encounters Date Type Department Care Team (Late st Contact Info) Description 12/22/2024 7:40 AM EDT Office Visit [facility] [place] Zhu [address] [phone] Nic Durbin MD [address] [place] [address] 01/13/2025 8:00 AM EDT Office Visit Neurology [facility] Ruano [address] [place] [address] Adarsh Lincoln DO [address] [place] [address] 06/25/2025 7:40 AM EST Office Visit Dermatology, [address] [phone] Hilary Faith PA-C [address] [place] [address] [place] [address] Health Maintenance Due Date Last Done Comments CKD PHOS USE SMARTSET 87192 09/12/1963 Adult Wellness Visit 09/12/2011 COVID-19 Vaccine [...] elsewhere), Additional history exists B-12 06/13/2025 06/13/2024, /09/2023, 05/01/2022, Additional history exists CKD HGB USE SMARTSET 18264 06/13/202506/13, 06/13/2024, 11/20/2023, Additional history exists DTap/Tdap [...] on File Type Date Recorded Patient Hand Filer Balance Wheel Expl anation Advance Directives and Living Will 01/03/2005 LIVING WILL Power of Emergency Medical Technician Basic 01/03/2005 POWER OF A TTORNEY [facility] GENERAL POWER OF CURTAIN STRETCHER ASSEMBLER Care Teams Tower Erector Helper Relationship Specialty Start Date End Date Nic Durbin MD [address] [place] [address] PCP - General Family Medicine 06/10/24 documented as of this encounter
--- OUTSIDE RECORDS SUMMARY | 2024-09-20 07:18 | External Medical Summary | Summary of Care ---
Author Name Unknown Organization [facility] Address [address] [facility] [place] [address] Phone [phone] Care Team Providers Care Mobile Equipment Servicer Name Role Phone Nic Durbin MD Primary Care Provider +1- [phone] Encounter Details Date Type Department Care Team (Late st Contact Info) Description 06/20/2024 Orders Only PATIENT PORTAL DO NOT DELETE THIS DEPT USED BY [place] [id number] Allergies No known active allergiesdocumented as of this encounter (statuses as of 06/20/2024) Medications Metoprolol Succinate 50 MG Oral Capsule [...] as of this encounter (statuses as of 06/20/2024) Active Problems Problem Noted Date Diagnosed Date [...] as of this encounter (statuses as of 06/20/2024) Resolved Problems Problem Noted Date Diagnosed Date Resolved Date Atrial fibrillation 05/31/2016 11/21/19 24 Microalbuminuria 05/31/2016 10/26/2021 documented as of this encounter (statuses as of 06/20/2024) Immunizations Name Administration Dates Next Due COVID-19 mRNA, LNP-s, No Pre serve, 2-Dose Series ([email or web address]) 07/23/2020,06/25/2020 COVID-19, MRNA-LNP, PF, 50 M CG/0.5 [...] 12/22/2024 7:40 AM EDT Office Visit Family Practice, Boaz Zhu [address] [phone] Nic Durbin MD [address] [place] [address] 01/13/2025 8:00 AM EDT Office Visit Neurology [facility] [address] [facility] [place] [address] Adarsh Lincoln, [address] [facility] [place] [address] 06/25/2025 7:40 AM EST Office Visit Dermatology, Boaz Thomas [address] [phone] Hilary Faith PA-C [address] [place] [address] [place] [address] Health Maintenance Due Date Last Done Comments CKD PHOS USE SMARTSET 69879 09/12/1963 Adult Wellness Visit 09/12/2011 COVID-19 Vaccine [...] Additional history exists CKD HGB USE SMARTSET 58890 06/13/202506/13, 06/13/2024, 11/20/2023, Additional history exists DTap/Tdap [...] on File Type Date Recorded Patient Legal Records Clerk Expl anation Advance Directives and Living Will 01/03/2005 LIVING WILL Power of Photo Technician 01/03/2005 POWER OF A TTORNEY DURABLE GENERAL POWER OF CRADLE PLACER Care Teams Mobile Equipment Servicer Relationship Specialty Start Date End Date Nic Durbin MD [address] [place] [address] PCP - General Family Medicine 06/10/24 documented as of this encounter
--- OUTSIDE RECORDS SUMMARY | 2024-09-20 07:18 | External Medical Summary | Summary of Care ---
Author Name Unknown Organization [facility] Address [address] [place] [address] Phone [phone] Care Team Providers Care Power Plant Installer Name Role Phone Bernard Peralta MD Primary Care Provider [phone]- [phone] Reason for Visit * Reason Comments eRx-Medication Refill Encounter Details Date Type Department Care Team (Late st Contact Info) Description 09/15/2024 Refill [facility] [address] [address] Bernard Peralta MD [address] [place] [address] Type 2 diabetes mellitus with hemoglobin A1c goal of less than 8.0% (HCC); Permanent atrial fibrillation (HCC) Allergies No known active allergiesdocumented as of this encounter (statuses as of 09/17/2024) Medications amLODIPine Besylate 5 MG Oral Tablet (Norvasc)Indica tions:HTN, goal below 130/80 TAKE 1 TABLET BY MOUTH EVERY DAY IN THE MORNING 90 Tablet 3 10/03/19 24 Active Cetirizine HCl 10 MG Oral Tablet (ZyrTEC) Take 1 Tablet by mouth in the morning. 90 Tablet 3 02/07/20 24 Active Additional Information Patient not taking.Reported on 06/16/2024 Fluticasone Propionate 50 MCG/ACT Nasal Suspension (Flonase) Administer 2 Sprays into each nostril in the morning. 16 g 1 03/03/20 24 Active Additional Information Patient not taking.Reported on 06/16/2024 Fluorouracil 5 % External Cream (Efudex)Indicat ions:Actinic keratosis Start May or 2024: apply thin layer to forehead and entire scalp 2x daily for 3 weeks, then please send photos through My Chart at the end of the treatment. 40 g 1 04/24/20 24 Active Additional Information Patient not taking.Reported on 06/10/2024 Atorvastatin Calcium 40 MG Oral Tablet (Lipitor)Indica tions:Dyslipide erendira, goal LDL below 70 Take 1 Tablet by mouth in the morning. 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 180 Tablet 3 06/10/19 25 Active Glimepiride 1 MG Oral Tablet (Amaryl) Take 1 tablet by mouth in the morning, with the first main meal of the day for diabetes. 90 Tablet 1 09/16/19 25 Active Januvia 100 MG Oral Tablet (SITagliptin) Take 1 tablet by mouth in the morning. 90 Tablet 1 09/17/19 25 Active Farxiga 10 MG Oral Tablet (Dapagliflozin Propanediol) Take 1 tablet by mouth daily 90 Tablet 1 09/17/19 25 Active metFORMIN HCl 500 MG Oral Tablet (Glucophage) Take 2 tablets by mouth in the morning and 2 tablets before bedtime. 360 Tablet 1 09/17/19 25 Active Lisinopril 30 MG Oral TabletIndicatio ns:Type 2 diabetes mellitus with hemoglobin A1c goal of less than 8.0% (HCC) Take 1 tablet by mouth in the morning. 90 Tablet 1 09/17/19 25 Active Kapspargo Sprinkle 50 MG Oral Capsule ER 24 Hour Sprinkle (Metoprolol Succinate)Indic ations:Permanen t atrial fibrillation (HCC) Take 1 capsule by mouth in the morning and 1 capsule before bedtime. 180 Capsule 1 09/17/19 25 Active Metoprolol Succinate 50 MG Oral Capsule ER 24 Hour SprinkleIndicat ions:Permanent atrial fibrillation (HCC) Take 50 mg by mouth in the morning and 50 mg before bedtime. 180 Capsule 3 05/18/19 24 025 Discontinued Lisinopril 30 MG Oral TabletIndicatio ns:Type 2 diabetes mellitus with hemoglobin A1c goal of less than 8.0% (HCC) Take 1 Tablet by mouth in the morning. 90 Tablet 3 11/21/19 24 025 Discontinued SITagliptin Phosphate 100 MG Oral Tablet (Januvia) Take 1 Tablet by mouth in the morning. 90 Tablet 3 12/19/19 24 025 Discontinued Dapagliflozin Propanediol 10 MG Oral Tablet (Farxiga) Take 1 tablet by mouth daily 90 Tablet 3 12/19/19 24 025 Discontinued metFORMIN HCl 500 MG Oral Tablet (Glucophage) Take 2 Tablets by mouth in the morning and 2 Tablets before bedtime. 360 Tablet 3 12/19/19 24 025 Discontinued documented as of this encounter (statuses as of 09/17/2024) Active Problems Problem Noted Date Diagnosed Date [...] as of this encounter (statuses as of 09/17/2024) Resolved Problems Problem Noted Date Diagnosed Date Resolved Date Atrial fibrillation 05/31/2016 11/21/19 24 Microalbuminuria 05/31/2016 10/26/2021 documented as of this encounter (statuses as of 09/17/2024) Immunizations Name Administration Dates Next Due COVID-19 mRNA, LNP-s, No Pre serve, 2-Dose Series (Signdat) 07/23/2020,06/25/2020 COVID-19, MRNA-LNP, PF, 50 M CG/0.5 [...] 10 and older)(Boostrix) 05/15/2023 Varicella Zoster Vaccine Adult (Zostavax) 2013 documented as of this encounter Social History [...] 11/21/2023 Does the household have a re lar source of income? (Household - for ages [...] encounter Miscellaneous Notes * Telephone Encounter - Beth Pablo, [facility] - 09/16/2024 5:04 PM EDTSigned Prescriptions: Disp Refills Januvia 100 MG Oral Tablet (SITagliptin) 90 Tab*1 Sig: Take 1 tablet by mouth in the morning.Authorizing Provider: BERNARD PERALTA User: BETH PABLO Farxiga 10 MG Oral Tablet (Dapagliflozin P*90 Tab*1 Sig: Take 1 tablet by mouth dailyAuthorizing Provider: BERNARD PERALTA User: BETH PABLO metFORMIN HCl 500 MG Oral Tablet (Glucopha*360 Ta*1 Sig: Take 2 tablets by mouth in the morning and 2 tablets before bedtime.AuthorizingProvider: BERNARD PERALTA User: BETH PABLO Lisinopril 30 MG Oral Tablet 90 Tab*1 Sig: Take 1 tablet by mouth in the morning.Authorizing Provider: BERNARD PERALTA User:BETH PABLO Kapspargo Sprinkle 50 MG Oral Capsule ER 2*180 Ca*1 Sig: Take 1 capsule by mouthin the morning and 1 capsule before bedtime.Authorizing Provider: BERNARD PERALTA User: BETH PABLO Prescriptions: Disp Refills Xarelto 20 MG Oral Tablet (Rivaroxaban) 90 Tab* Sig: Take 1 tablet by mouth daily with dinnerRefused By: BETH PABLOeason for Refusal: Course of treatment completeReason for Refusal Comment: elijakeis, neurology documented in this encounter Plan of Treatment Upcoming Encounters Date Type Department Care Team (Late st Contact Info) Description 12/22/2024 7:40 AM EDT Office [facility] [address] [phone] Bernard Peralta MD [address] [facility] [place] [address] 01/13/2025 8:00 AM EDT Office Visit [facility] [place] [address] [facility] [place] [phone] Adarsh [place], DO [address] [place] [address] 06/25/2025 7:40 AM EST Office Visit Dermatology, [address] [phone] Hilary Faith PA-C [address] [place] [address] [place] [address] Health Maintenance Due Date Last Done Comments CKD PHOS USE SMARTSET 21885 09/12/1963 Adult Wellness Visit 09/12/2011 COVID-19 Vaccine ( season) 2024 03/19/2023, 03/29/2021, 07/23/2020, Additional history exists Albumin/Creatinine Ratio 11/19/2024 024, 10/24/2021, 08/20/2018, Additional history exists Depression Screening 11/20/2024 11/21/2023 Diabetic Foot Exam 11/20/2024 11/21/2023, 1 05/26/2017, 05/25/2017 GFR 12/11/2024 06/13/2024, 03/14, 11/20/2023, Additional history exists HbA1c 12/11/2024 06/13/2024, 03/14, 11/20/2023, Additional history exists Influenza Vaccine (FLU shot) (Season Ended) 2025 03/19/2023, 05/01/2022, 04/25/2021, Additional history exists Diabetic Eye Exam 01/27/2025 01/28/2024, , 01/28/2024 (Done elsewhere), Additional history exists B-12 06/13/2025 06/13/2024, 09/2023, 05/01/2022, Additional history exists CKD HGB USE SMARTSET 97039 06/13/202506/13, 06/13/2024, 11/20/2023, Additional history exists DTap/Tdap [...] A1c goal of less than 8.0% (HCC) Permanent atrial fibrillation (HCC) Atrial fibrillation documented in this encounter Advance Directives Documents on File Type Date Recorded Patient Curb Hop Expl anation Advance Directives and Living Will 01/03/2005 LIVING WILL Power of Medical Underwriter 01/03/2005 POWER OF A TTORNEY DURABLE GENERAL POWER OF PIT RECORDER Care Teams Power Plant Installer Relationship Specialty Start Date End Date Bernard Peralta MD [address] [place] [address] PCP - General Family Medicine 06/10/24 documented as of this encounter
--- OUTSIDE RECORDS SUMMARY | 2024-09-20 07:18 | External Medical Summary ---
Author Name Unknown Address Unknown Organization [id number]:LAB[facility]ORY [facility] [place] - [address] [facility] [address] Laboratory Report Ordering Provider Test Date Status JOB MATHEW 06/13/2024 07:58:34 Final Observation Date Value Abnormality Reference (Units ) Status Triglyceride 06/13/2024 07:58:34 130 <=174 ( mg/dL) Final Triglyceride Reference Range s (mg/dL):
<150 Acceptable
150-174 Borderline high
175-499 High
>=500 Very high Cholesterol 06/13/2024 07:58:34 109 <200 (mg /dL) Final Total Cholesterol Reference Ranges (mg/dL):
<200 Desirable
200-239 Borderline high
>=240 High HDL 06/13/2024 07:58:34 40 >39 (mg/dL ) Final HDL Cholesterol Reference Ra nges (mg/dL):
>=60 High (Desirable)
<50 Low (Undesirable) For Females
<40 Low (Undesirable) For Males NON-HDL CHOLESTEROL 06/13/2024 07:58:34 69 <=159 (mg/dL) Final Non-HDL Cholesterol Referenc e Range (mg/dL):
<100 Target level for high risk ASCVD patient
<130 Optimal for general population
130-159 Near optimal for general population
160-189 Borderline High
190-219 High
>=220 Very High LDL, (calculated) 06/13/2024 07:58:34 43 <= 129 (mg/dL) Final LDL Cholesterol Reference Ra nges (mg/dL):
<70 Target level for high risk ASCVD patient
<100 Optimal for general population
100-129 Near optimal for general population
130-159 Borderline high
160-189 High
>=190 Very high Performing Location LAB[facility]ORY [facility] [place] - [address] [facility] [address]
--- OUTSIDE RECORDS SUMMARY | 2024-09-20 07:18 | External Medical Summary | Summary of Care ---
Author Name Unknown Organization [facility] Address [address] [place] [address] Phone [phone] Care Team Providers Care Agency Service Representative Name Role Phone Nic Durbin MD Primary Care Provider [phone]- [phone] Reason for Visit * Reason Onset Date Comments Nurse Documentation 07/11/2024 Encounter Details Date Type Department Care Team (Late st Contact Info) Description 07/11/2024 Telephone [facility] [address] [place] [address] Nic Durbin MD [address] [facility] [place] [address] Nurse Documentation Allergies No known active allergiesdocumented as of this encounter (statuses as of 07/11/2024) Medications Metoprolol Succinate 50 MG Oral Capsule [...] as of this encounter (statuses as of 07/11/2024) Active Problems Problem Noted Date Diagnosed Date [...] as of this encounter (statuses as of 07/11/2024) Resolved Problems Problem Noted Date Diagnosed Date Resolved Date Atrial fibrillation 05/31/2016 11/21/19 24 Microalbuminuria 05/31/2016 10/26/2021 documented as of this encounter (statuses as of 07/11/2024) Immunizations Name Administration Dates Next Due COVID-19 mRNA, LNP-s, No Pre serve, 2-Dose Series (Springshot) 07/23/2020,06/25/2020 COVID-19, MRNA-LNP, PF, 50 M CG/0.5 [...] Encounter - Mere Wood MED ASSIST - 07/11/2024 4:20 PM EST Received Fax for BFPROVIDERS: Dr. Nic Durbin ORDER received from [facility] and FAXED documented in this encounter Plan of Treatment Upcoming Encounters Date Type Department Care Team (Late st Contact Info) Description 12/22/2024 7:40 AM EDT Office Visit [facility] [address] [phone] Nic Durbin MD [address] [place] [address] 01/13/2025 8:00 AM EDT Office Visit [facility]rology [facility] [place] [address] [place] [address] [address] [place], [address] [place] [address] 06/25/2025 7:40 AM EST Office Visit Dermatology, [address] [phone] Hilary Faith PA-C [address] [place] [address] [place] [address] Health Maintenance Due Date Last Done Comments CKD PHOS USE SMARTSET 00630 09/12/1963 Adult Wellness Visit 09/12/2011 COVID-19 Vaccine [...] Additional history exists CKD HGB USE SMARTSET 93869 06/13/202506/13, 06/13/2024, 11/20/2023, Additional history exists DTap/Tdap [...] Documents on File Type Date Recorded Patient Customer Liaison Expl anation Advance Directives and Living Will 01/03/2005 LIVING WILL Power of Postal Superintendent 01/03/2005 POWER OF A TTORNEY [facility] GENERAL POWER OF SPEECH LANGUAGE PATHOLOGY ASSISTANT Care Teams Agency Service Representative Relationship Specialty Start Date End Date Nic Durbin MD [address] [place] [address] PCP - General Family Medicine 06/10/24 documented as of this encounter
--- OUTSIDE RECORDS SUMMARY | 2024-09-20 07:18 | External Medical Summary | Summary of Care ---
Author Name Unknown Organization [facility] Address [address] [place] [address] Phone [phone] Care Team Providers Care Psychology Intern Name Role Phone Nic Durbin MD Primary Care Provider [phone]- [phone] Reason for Visit * Reason Onset Date Comments Nurse Documentation 07/03/2024 Encounter Details Date Type Department Care Team (Late st Contact Info) Description 07/03/2024 Telephone [facility] [address] [place] [phone] Nic Durbin MD [address] [facility] [place] [address] Nurse Documentation Allergies No known active allergiesdocumented as of this encounter (statuses as of 07/03/2024) Medications Metoprolol Succinate 50 MG Oral Capsule [...] as of this encounter (statuses as of 07/03/2024) Active Problems Problem Noted Date Diagnosed Date [...] as of this encounter (statuses as of 07/03/2024) Resolved Problems Problem Noted Date Diagnosed Date Resolved Date Atrial fibrillation 05/31/2016 11/21/19 24 Microalbuminuria 05/31/2016 10/26/2021 documented as of this encounter (statuses as of 07/03/2024) Immunizations Name Administration Dates Next Due COVID-19 mRNA, LNP-s, No Pre serve, 2-Dose Series ([employer]) 07/23/2020,06/25/2020 COVID-19, MRNA-LNP, PF, 50 M CG/0.5 [...] Encounter - Mere Wood MED ASSIST - 07/03/2024 2:44 PM EST Received Fax for BFPROVIDERS: Dr. Nic Durbin PT [facility] documented in this encounter Plan of Treatment Upcoming Encounters Date Type Department Care Team (Late st Contact Info) Description 12/22/2024 7:40 AM EDT [facility] [address] [phone] Nic Durbin MD [address] [address] 01/13/2025 8:00 AM EDT Office Visit Neurology [facility] [place] [address] [place] [address] Ad[place], [address] [place] [address] 06/25/2025 7:40 AM EST Office Visit Dermatology, [address] [phone] Hilary Faith PA-C [address] [place] [address] [place] [address] Health Maintenance Due Date Last Done Comments CKD PHOS USE SMARTSET 65798 09/12/1963 Adult Wellness Visit 09/12/2011 COVID-19 Vaccine [...] Additional history exists CKD HGB USE SMARTSET 22775 06/13/202506/13, 06/13/2024, 11/20/2023, Additional history exists DTap/Tdap [...] Documents on File Type Date Recorded Patient Supervisor Joiners Expl anation Advance Directives and Living Will 01/03/2005 LIVING WILL Power of Teacher Learning Disabled 01/03/2005 POWER OF A TTORNEY [facility] GENERAL POWER OF DATA CONVERSION ANALYST Care Teams Psychology Intern Relationship Specialty Start Date End Date Nic Durbin MD [address] [place] [address] PCP - General Family Medicine 06/10/24 documented as of this encounter
--- OUTSIDE RECORDS SUMMARY | 2024-09-20 07:18 | External Medical Summary ---
Author Name Unknown Address Unknown Organization K01:[facility] [place] [address] [facility] [id number] Laboratory Report Ordering Provider Test Date Status JOB MATHEW 06/13/2024 07:58:34 Final Observation Date Value Abnormality Reference (Units ) Status HbA1C 06/13/2024 07:58:34 7.2 Above high normal 4. 0-5.6 (%) Final The use of HbA1c to monitor glycemic status is based on normal hemoglobin and HbA composition. This test should not be used in patients with abnormal hemoglobin that affects the half life of the red blood cell or the in vivo glycation rates. Glucose, estimated average 06/13/2024 07:58:34 160 Above high normal <126 (mg/dL) Lucas bone Performing Location [facility] [place] - [address] [facility] [id number]
--- OUTSIDE RECORDS SUMMARY | 2024-09-20 07:18 | External Medical Summary ---
Author Name Unknown Address Unknown Organization K01:[facility]ORY [facility] [place] - [address] [facility] [address] Laboratory Report Ordering Provider Test Date Status JOB MATHEW 06/13/2024 07:58:34 Final Observation Date Value Abnormality Reference (Units ) Status SYNC LEUKOCYTES IN BLOOD BY AUTOMATED COUNT 06/13/2024 07:58:34 8.76 4.00-10.80 (K/uL) Final Segs 06/13/2024 07:58:34 58.2 40.0-75.0 (%) Final Lymphs % 06/13/2024 07:58:34 29.5 18.0-42.0 (%) Final Monos 06/13/2024 07:58:34 9.8 1.0-11.0 (%) Final Eosinophils 06/13/2024 07:58:34 1.3 0.0-6.0 (%) Final Basos 06/13/2024 07:58:34 0.5 0.0-2.0 (%) Final Immature Granulocyte, Percent 06/13/2024 07:58:34 0.7 0.0-2.0 (%) Final Absolute Segs 06/13/2024 07:58:34 5.11 1.80-7.70 (K/uL) Final Lymphs, absolute 06/13/2024 07:58:34 2.58 1.00-4.80 (K/ul) Final Monos, Abs 06/13/2024 07:58:34 0.86 0.00-1.10 (K/uL) Final Eos, Abs 06/13/2024 07:58:34 0.11 0.00-0.70 (K/uL) Final Basos, Abs 06/13/2024 07:58:34 0.04 0.00-0.20 (K/uL) Final Immature Granulocytes, Number 06/13/2024 07:58:34 0.06 0.00-0.20 (K/uL) Final Performing Location LABOR[facility]ORY [facility] [place] - [address] [facility] [address]
--- OUTSIDE RECORDS SUMMARY | 2024-09-20 07:18 | External Medical Summary ---
Author Name Unknown Address Unknown Organization K01:[facility] [place] [address] [facility] [address] Laboratory Report Ordering Provider Test Date Status JOB MATHEW 06/13/2024 07:58:34 Final Observation Date Value Abnormality Reference (Units ) Status WBC, Total 06/13/2024 07:58:34 8.76 4.00-10.80 (K/uL) Final RBC 06/13/2024 07:58:34 5.49 4.50-5.25 (M/uL) Final Hemoglobin 06/13/2024 07:58:34 15.6 14.0-16.8 (g/dL) Final HCT 06/13/2024 07:58:34 49.9 Above high normal 40.0-48.4 (%) Final MCV 06/13/2024 07:58:34 90.9 82.0-99.5 (fL) Final MCH 06/13/2024 07:58:34 28.4 27.0-34.0 (pg) Final MCHC 06/13/2024 07:58:34 31.3 32.0-36.0 (g/dL) Final RDW 06/13/2024 07:58:34 13.9 11.5-15.5 (%) Final Platelets 06/13/2024 07:58:34 265 140-400 (K/uL) Final MPV 06/13/2024 07:58:34 11.5 6.6-11.1 (fL) Final Nucleated erythrocytes/100 leukocytes [Ratio] in Blood by Automated count 06/13/2024 07:58:34 0 <=0 (/100 WBCs) Final Performing Location [facility] [place] [address] [place] [address]
--- OUTSIDE RECORDS SUMMARY | 2024-09-20 07:18 | External Medical Summary | Summary of Care ---
Author Name Unknown Organization [facility] Address [address] [place] [address] Phone [phone] Care Team Providers Care Transformer Coil Winder Name Role Phone Nic Durbin MD Primary Care Provider +1- [phone] Reason for Visit * Reason Comments Follow Up Return in 6 months Encounter Details Date Type Department Care Team (Late st Contact Info) Description 06/16/2024 7:40 AM EST Office Visit [facility] [place] [address] [facility] [place] [address] Nic Durbin MD [address] [place] [address] Type 2 diabetes mellitus with hemoglobin A1c goal of less than 7.0% ([facility])*; History of CVA (cerebrovascular accident); Dyslipidemia, goal LDL below 70; Chronic atrial fibrillation (HCC); HTN, goal below 130/80; Chronic kidney disease, stage 3a ([facility]); Chronic rhinitis Allergies No known active allergiesdocumented as of this encounter (statuses as of 06/16/2024) Medications Metoprolol Succinate 50 MG Oral Capsule [...] as of this encounter (statuses as of 06/16/2024) Active Problems Problem Noted Date Diagnosed Date [...] as of this encounter (statuses as of 06/16/2024) Resolved Problems Problem Noted Date Diagnosed Date Resolved Date Atrial fibrillation 05/31/2016 11/21/19 24 Microalbuminuria 05/31/2016 10/26/2021 documented as of this encounter (statuses as of 06/16/2024) Immunizations Name Administration Dates Next Due COVID-19 mRNA, LNP-s, No Pre serve, 2-Dose Series (Ulthera) 07/23/2020,06/25/2020 COVID-19, MRNA-LNP, PF, 50 M CG/0.5 [...] Passive Smoke Exposure: Never Smokeless Tobacco: Never Tobacco Cessation:Counseling Given: Not Answered Alcohol Use Standard Drinks/Week Comments Yes 0 [...] AM EDT documented as of this encounter Last Filed Vital Signs Vital Sign Reading Time Taken Comments Blood Pressure 136/78 06/16/2024 7:22 AM EST Pulse 75 06/16/2024 7:22 AM EST Temperature 36.4 °C (97.6 °F) 06/16/2024 7:22 AM ES T Respiratory Rate 18 06/16/2024 7:22 AM EST Oxygen Saturation 96% 06/16/2024 7:22 AM EST Inhaled Oxygen Concentration - - Weight 86.6 kg (191 lb) 06/16/2024 7:22 AM EST Height 172.7 cm (5' 8") 06/16/2024 7:22 AM EST Body Mass Index 29.04 06/16/2024 7:22 AM EST documented in this encounter Progress Notes * Nic Durbin MD - 06/16/2024 7:57 AM EST Subjective: Pawan Majano is a 78 year old male here today for Chief Complaint Patient presents with Follow Up Return in 6 months Patient presents for routine six-month return. 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 States he could not speak at all for period of time. His speech has returned but he states his memory is still not what it used to be. He can tell a difference with forgetting things. He is working with speech therapy twice per week. During the hospitalization, atorvastatin was added. Recentcholesterol numbers are excellent. At his Neurology follow-up, he was changed from Xarelto to Eliquis. Was offered a Cardiology referral due to the chronic atrial fibrillation. Patient declines. States he has seen cardiologists over the years and is not interested in a return at this time. Blood pressure slightly elevated. He declines a change in blood pressure medication at this time. Hemoglobin A1c increased to 7.2. He declines an intensification of diabetes medications. He does report that he has had chronic issues with cold symptoms and rhinitis. Was seen in January and started on Zyrtec, Flonase, Augmentin. Does believe his symptoms improved. Had a return of symptoms and was given another course of Augmentin 2 weeks ago. States his symptoms have improved again. Did discuss it with ENT who recommend that he regularly use Flonase and nasal saline rinses. He was found on CT to have a submandibular mass during the hospitalization. Reports that 1 of the hospital physicians could feel it. States that it seems to have resolved in that it was not detected in his hospital follow-up here or with ENT. ENT has ordered a CT scan of the neck for further evaluation. No past medical history on file. No past surgical history on file. Review of patient's allergies indicates: No Known Allergies Current Outpatient Medications Medication Sig Dispense Refill Metoprolol Succinate 50 MG Oral Capsule ER 24 Hour Sprinkle Take 50 mg by mouth in the morning and 50 mg before bedtime. 180 Capsule 3 amLODIPine Besylate 5 MG Oral Tablet [...] the day for diabetes. 90 Tablet 3 Atorvastatin Calcium 40 MG Oral Tablet (Lipitor) Take 1 Tablet by mouth in the morning. 90 Tablet 1 Apixaban 5 MG Oral Tablet (Eliquis) Take 1 Tablet by mouth in the morning and 1 Tablet before bedtime. 180 Tablet 3 Cetirizine HCl 10 MG Oral Tablet (ZyrTEC) Take 1 Tablet by mouth in the morning. (Patient not taking: Reported on 06/16/2024) 90 Tablet 3 Fluticasone Propionate 50 MCG/ACT Nasal Suspension (Flonase) Administer 2 Sprays into each nostril in the morning. (Patient not taking: Reported on 06/16/2024) 16 g 1 Fluorouracil 5 % External Cream (Efudex) Start May or 2024: apply thin layer to forehead and entire scalp 2x daily for 3 weeks, then please send photos through My Chart at the end of the treatment. (Patient not taking: Reported on 06/03/2024) 40 g 1 No current facility-administered medications for this visit. Objective: BP 136/78 | Pulse 75 | Temp 97.6 °F (36.4 °C) (Tympanic) | Resp 18 | Ht 5' 8" (1.727 m) | Wt 191 lb (86.6 kg) | SpO2 96% | BMI 29.04 kg/m² | BSA 2.04 m² GEN: NAD HEENT: Benign NECK: Supple with no LAD, TM, JVD CHEST: CTA B CV: RRR ABD: Soft, NT/ND, No HSM, NABS EXT: No c,c,e Assessment and Plan: Type 2 diabetes mellitus with hemoglobin A1c goal of less than 7.0% ([facility]) (Primary) - HEMOGLOBIN A1C; Future; Expected date: 06/16/2024 - BASIC METABOLIC PANEL; Future; Expected date: 06/16/2024 - ALBUMIN / CREATININE RATIO, URINE; Future; Expected date: 06/16/2024 -declines an increase in medication at this time. Will recheck labs prior to next visit History of CVA (cerebrovascular accident) -likely related to his atrial fibrillation. Speech has returned but he feels his memory is not backto normal. He will continue with speech therapy. He will follow up with Neurology. Declines referral to Cardiology. Dyslipidemia, goal LDL below 70 -continue atorvastatin Chronic atrial fibrillation (HCC) -continue Eliquis, metoprolol HTN, goal below 130/80 -offered an increase in amlodipine or lisinopril dosing. He declines at this time. Continue with current medications Chronic kidney disease, stage 3a ([facility]) -will need to continue to monitor. May need to discontinue metformin in the future. Chronic rhinitis -continue flonase and saline rinses. He has responded twice to augmentin, so if sinus symptoms progress despite the flonase and saline, will consider periodic need for abx. Submandibular mass -follow up ct ordered by ENT Follow-up: Return in about 6 months (around 12/14/2024). | Check-out note: recheck 40 min with pt and chart review, documentation Nic Durbin MD documented in this encounter Nursing Notes * Araceli Espinal LPN - 06/16/2024 7:22 AM EST The patient has been properly identified by confirmation of name and date of . Chief Complaint Patient presents with Follow Up Return in 6 months Patients would like to discuss zyrtec and flonase- should he be taking? Saw Jeffery in May for hospital follow up documented in this encounter Plan of Treatment Upcoming Encounters Date Type Department Care Team (Late st Contact Info) Description 06/18/2024 1:30 PM EST Imaging Radiology [address] [place] [phone] 12/22/2024 7:40 AM EDT [facility] [address] [phone] Nic Durbin MD [address] [facility] [place] [address] 01/13/2025 8:00 AM EDT Office Visit Neurology [facility] [place] [address] [facility] [place] [address] Adarsh [place], [address] [place] [address] 06/25/2025 7:40 AM EST Office Visit Dermatology, [address] [place] [phone] Hilary Faith PA-C [address] [place] [address] [place] [address] Scheduled Orders Name Type Priority Associated Diagnoses Orde r Schedule HEMOGLOBIN A1C Lab Routine Type 2 diabetes mellitus with hemoglobin A1c goal of less than 7.0% (HCC) Expected: 06/16/2024 (Approximate), Expires: 06/16/2025 BASIC METABOLIC PANEL Lab Routine Type 2 diabetes mellitus with hemoglobin A1c goal of less than 7.0% (HCC) Expected: 06/16/2024 (Approximate), Expires: 06/16/2025 ALBUMIN / CREATININE RATIO, URINE Lab Routine Type 2 diabetes mellitus with hemoglobin A1c goal of less than 7.0% (HCC) Expected: 06/16/2024 (Approximate), Expires: 06/16/2025 Health Maintenance Due Date Last Done Comments CKD PHOS USE SMARTSET 76213 09/12/1963 Adult Wellness Visit 09/12/2011 COVID-19 Vaccine [...] Additional history exists CKD HGB USE SMARTSET 00654 06/13/202506/13, 06/13/2024, 11/20/2023, Additional history exists DTap/Tdap [...] hemoglobin A1c goal of less than 7.0% (HCC)- Primary History of CVA (cerebrovascular accident) Transient ischemic attack (TIA), and cerebral infarction without residual deficits Dyslipidemia, goal LDL below 70 Other and unspecified hyperlipidemia Chronic atrial fibrillation (HCC) Atrial fibrillation HTN, goal below 130/80 Unspecified essential hypertension Chronic kidney disease, stage 3a (HCC) Chronic rhinitis documented in this encounter Advance Directives Documents on File Type Date Recorded Patient Cmm Operator Expl anation Advance Directives and Living Will 01/03/2005 LIVING WILL Power of Judicial Clerk 01/03/2005 POWER OF A TTORNEY DURABLE GENERAL POWER OF RESEARCH SCHOLAR Care Teams Transformer Coil Winder Relationship Specialty Start Date End Date Nic Durbin MD [address] [place] [address] PCP - General Family Medicine 06/10/24 documented as of this encounter
--- OUTSIDE RECORDS SUMMARY | 2024-09-20 07:18 | External Medical Summary | Summary of Care ---
Author Name Unknown Organization [facility] Address [address] [place] [address] Phone [phone] Care Team Providers Care Buggy Operator Name Role Phone Bernard Peralta MD Primary Care Provider +1- [phone] Reason for Visit * Reason Comments eRx-Medication Refill Encounter Details Date Type Department Care Team (Late st Contact Info) Description 09/15/2024 Refill [facility] [address] [place] [address] Bernard Peralta MD [address] [place] [address] Allergies No known active allergiesdocumented as of this encounter (statuses as of 09/15/2024) Medications Metoprolol Succinate 50 MG Oral Capsule ER 24 Hour SprinkleIndicat ions:Permanent atrial fibrillation (HCC) Take 50 mg by mouth in the morning and 50 mg before bedtime. 180 Capsule 3 05/18/19 24 Active amLODIPine Besylate 5 MG Oral Tablet (Norvasc)Indica tions:HTN, goal below 130/80 TAKE 1 TABLET BY MOUTH EVERY DAY IN THE MORNING 90 Tablet 3 10/03/19 24 Active Lisinopril 30 MG Oral TabletIndicatio ns:Type 2 diabetes mellitus with hemoglobin A1c goal of less than 8.0% (HCC) Take 1 Tablet by mouth in the morning. 90 Tablet 3 11/21/19 24 Active SITagliptin Phosphate 100 MG Oral Tablet (Januvia) Take 1 Tablet by mouth in the morning. 90 Tablet 3 12/19/19 24 Active Dapagliflozin Propanediol 10 MG Oral Tablet (Farxiga) Take 1 tablet by mouth daily 90 Tablet 3 12/19/19 24 Active metFORMIN HCl 500 MG Oral Tablet (Glucophage) Take 2 Tablets by mouth in the morning and 2 Tablets before bedtime. 360 Tablet 3 12/19/19 24 Active Cetirizine HCl 10 MG Oral [...] diabetes. 90 Tablet 1 09/16/19 25 Active Glimepiride 1 MG Oral Tablet (Amaryl) Take 1 Tablet by mouth in the morning. with the first main meal of the day for diabetes. 90 Tablet 3 12/19/19 24 025 Discontinued documented as of this encounter (statuses as of 09/15/2024) Active Problems Problem Noted Date Diagnosed Date [...] as of this encounter (statuses as of 09/15/2024) Resolved Problems Problem Noted Date Diagnosed Date Resolved Date Atrial fibrillation 05/31/2016 11/21/19 24 Microalbuminuria 05/31/2016 10/26/2021 documented as of this encounter (statuses as of 09/15/2024) Immunizations Name Administration Dates Next Due COVID-19 mRNA, LNP-s, No Pre serve, 2-Dose Series (Kukunu) 07/23/2020,06/25/2020 COVID-19, MRNA-LNP, PF, 50 M CG/0.5 [...] encounter Miscellaneous Notes * Telephone Encounter - Ernesto Corbett [facility] - 09/15/2024 9:02 AM EDTSigned Prescriptions: Disp Refills Glimepiride 1 MG Oral Tablet (Amaryl) 90 Tab*1 Sig: Take 1 tablet by mouth in the morning, with the first main meal of the day for diabetes.Authorizing Provider: BERNARD PERALTA User: ERNESTO ARNOLD documented in this encounter Plan of Treatment Upcoming Encounters Date Type Department Care Team (Late st Contact Info) Description 12/22/2024 7:40 AM EDT Office Visit [facility] [address] [address] Bernard Peralta MD [address] [facility] [place] [address] 01/13/2025 8:00 AM EDT Office Visit Neurology [facility] [address] [place] [address] Adarsh [place], DO [address] [place] [address] 06/25/2025 7:40 AM EST Office [facility] [facility] [address] [place] [address] Hilary Faiht, PAAnanda [address] [place] [address] [place] [address] Health Maintenance Due Date Last Done Comments CKD PHOS USE SMARTSET 45665 09/12/1963 Adult Wellness Visit 09/12/2011 COVID-19 Vaccine [...] Additional history exists CKD HGB USE SMARTSET 85255 06/13/202506/13, 06/13/2024, 11/20/2023, Additional history exists DTap/Tdap [...] Documents on File Type Date Recorded Patient Stylist Assistant Expl anation Advance Directives and Living Will 01/03/2005 LIVING WILL Power of Junior Legal Secretary 01/03/2005 POWER OF A TTORNEY DURABLE GENERAL POWER OF E LEARNING COORDINATOR Care Teams Buggy Operator Relationship Specialty Start Date End Date Bernard Peralta MD [address] [address] PCP - General Family Medicine 06/10/24 documented as of this encounter
--- OUTSIDE RECORDS SUMMARY | 2024-09-20 07:18 | External Medical Summary ---
Author Name Unknown Address Unknown Organization K01:[facility] - [address] [place] [facility] [place] [address] Laboratory Report Ordering Provider Test Date Status JOB MATHEW 06/13/2024 07:58:34 Final Observation Date Value Abnormality Reference (Units ) Status BUN 06/13/2024 07:58:34 21 Above high normal 6-20 (mg/dL) Final Creatinine 06/13/2024 07:58:34 1.5 Above high normal 0.6-1.2 (mg/dL) Final Glomerular filtration rate/1.73 sq M.predicted [Volume Rate/Area] in Serum, Plasma or Blood by Creatinine-based formula (CKD-EPI) 06/13/2024 07:58:34 48 Below low normal >=60 (mL/min) Final eGFR is calculated based on the CKD-EPI 2020 equation. Sodium 06/13/2024 07:58:34 140 135-146 (m mol/L) Final Potassium 06/13/2024 07:58:34 4.8 3.5-5.1 (m mol/L) Final Cl 06/13/2024 07:58:34 103 98-107 (mm ol/L) Final CO2 06/13/2024 07:58:34 26 22-32 (mmo l/L) Final Anion gap 06/13/2024 07:58:34 11 7-15 (mmol /L) Final Glucose 06/13/2024 07:58:34 141 Above high normal 70 -120 (mg/dL) Final Albumin 06/13/2024 07:58:34 4.5 3.8-5.0 (g /dL) Final AST (Aspartate aminotransferase) 06/13/2024 07:58:34 27 10-50 (U/L) Fin al Alk Phos 06/13/2024 07:58:34 63 35-130 (U/ L) Final Bilirubin, Total 06/13/2024 07:58:34 0.3 <=1 .2 (mg/dL) Final Calcium 06/13/2024 07:58:34 9.6 8.4-10.2 ( mg/dL) Final Protein 06/13/2024 07:58:34 7.0 6.0-8.3 (g /dL) Final ALT (Alanine aminotransferase) 06/13/2024 07:58:34 32 10-50 (U/L) Lucas bone Performing Location [facility] - [address] [facility] [address]
--- OUTSIDE RECORDS SUMMARY | 2024-09-20 07:19 | External Medical Summary | Summary of Care ---
Author Name Unknown Organization [facility] Address [address] [place] [facility] [place] [address] Phone [phone] Care Team Providers Care Information Management Officer Name Role Phone Nic Durbin MD Primary Care Provider +1- [phone] Reason for Visit * Reason Onset Date Comments Order Request 06/02/2024 Hospital Follow-Up 06/02/2024 Encounter Details Date Type Department Care Team (Late st Contact Info) Description 06/02/2024 [facility] [address] [address] Nic Durbin MD [address] [facility] [place] [address] Order Request; Hospital Follow-Up Allergies No known active allergiesdocumented as of this encounter (statuses as of 06/02/2024) Medications Metoprolol Succinate 50 MG Oral Capsule [...] as of this encounter (statuses as of 06/02/2024) Active Problems Problem Noted Date Diagnosed Date [...] least 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) Chronic atrial fibrillation 04/25/2021 Type 2 diabetes mellitus wit h hemoglobin A1c goal of less than 8.0% 05/31/2016 documented as of this encounter (statuses as of 06/02/2024) Resolved Problems Problem Noted Date Diagnosed Date Resolved Date Atrial fibrillation 05/31/2016 11/21/19 24 Microalbuminuria 05/31/2016 10/26/2021 documented as of this encounter (statuses as of 06/02/2024) Immunizations Name Administration Dates Next Due COVID-19 mRNA, LNP-s, No Pre serve, 2-Dose Series (Surgimatix) 07/23/2020,06/25/2020 COVID-19, MRNA-LNP, PF, 50 M CG/0.5 [...] encounter Miscellaneous Notes * Telephone Encounter - Hilary Bonds OSA - 06/02/2024 4:12 PM EST Patient already scheduled. 06/02/2024 * Telephone Encounter - Erendira Kendall OSA - 06/02/2024 8:44 AM EST Hospital: [facility] Date of Discharge: 06/01/24 Pt suffered a stroke and wants to see PCP only An order was requested for this patient. Name of Requesting Provider: Dr Moya Order Requested: speech therapy Diagnosis/Reason for Request: stroke 05/31/24 What location AND department does the patient wish to have their order completed at? [facility] Fax Number, if applicable: [phone] If the caller is not a current patient, please advise the patient to call their current PCP to havethe order's prior to being seen in our office. The patient was informed that our providers would not order anything (medication, labs, etc.) prior to being seen. documented in this encounter Plan of Treatment Upcoming Encounters Date Type Department Care Team (Late st Contact Info) Description 06/03/2024 8:20 AM EST Office Visit [facility] [address] [address] [place] [phone] eJffery Aldrich PA-C [address] [place] [address] 06/16/2024 7:40 AM EST Office Visit [facility] [address] [place] [phone] Nic Durbin MD [address] [place] [address] 06/25/2025 7:40 AM EST Office Visit Dermatology, [address] [place] [address] Hilary Faith PA-C [address] [place] [address] [place] [address] Health Maintenance Due Date Last Done Comments DISCUSS TOBACCO CESSATION (REFER TO SMARTSET #3291) 1945 CKD PHOS USE SMARTSET 53937 09/12/1963 Adult Wellness Visit 09/12/2011 COVID-19 Vaccine [...] Additional history exists CKD HGB USE SMARTSET 72338 11/19/202411/19, 10/24/2021, 06/02/2020, Additional history exists Depression [...] Documents on File Type Date Recorded 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
--- OUTSIDE RECORDS SUMMARY | 2024-09-20 07:19 | External Medical Summary | Continuity of Care Document ---
Author Name Unknown Organization [facility] [address] Address [address] [place], [place] [id number] Care Team Providers Care Physician Internist Name Role Phone Hayder Machado Primary Care Physician [phone] Encounter [facility] [id number] Date(s): 05/31/24 - 05/31/24 [facility] [address] [place], [place] [id number] [place] Discharge Disposition: Home or Self Care Attending Physician: MD Ibrahim Evan David Referring Physician: MD Paula, Hernan Jovel Allergies, Adverse Reactions, Alerts No Known Allergies Medications Actos 15 mg oral tablet Start: 05/25/09 8:17:48 PM EST, 1 tab, PO, Daily, Refills: 0, current medication from another provider Start Date: 05/25/09 Status: Ordered metformin 1000 mg oral tablet Start: 05/25/09 8:17:24 PM EST, 1 tab, PO, bid, Refills: 0, current medication from another provider Start Date: 05/25/09 Status: Ordered thiamine Start: 05/26/09 1:14:29 PM EST, See Instructions, Refills: 0, 200 mg PO Daily, given to patient Start Date: 05/26/09 Status: Ordered Social History Social History Type Response Sex Male Sex Representation Male (finding) Patient Care team information Care Team Related Persons Name: GANESH COTA
--- OUTSIDE RECORDS SUMMARY | 2024-09-20 07:19 | External Medical Summary | Summary of Care ---
Author Name Unknown Organization [facility] Address [address] [place] [address] Phone [phone] Care Team Providers Care Brainer Name Role Phone Nic Durbin MD Primary Care Provider +1- [phone] Encounter Details Date Type Department Care Team (Late st Contact Info) Description 06/03/2024 Population Health External Data Unspecified Department Allergies No known active allergiesdocumented as of this encounter (statuses as of 06/03/2024) Medications Metoprolol Succinate 50 MG Oral Capsule [...] Active Additional Information Patient not taking.Reported on 06/03/2024 Atorvastatin Calcium 40 MG Oral Tablet (Lipitor)Indicati ons:Dyslipidemia, goal LDL below 70 Take 1 Tablet by mouth in the morning. 90 Tablet 1 5 Active Amoxicillin-Pot Clavulanate 875-125 MG Oral Tablet (Augmentin)Indica tions:Mass of submandibular region,Chronic sinusitis, unspecified location Take 1 Tablet by mouth in the morning and 1 Tablet before bedtime. Do all this for 10 days. 20 Tablet 5 025 Active documented as of this encounter (statuses as of 06/03/2024) Active Problems Problem Noted Date Diagnosed Date [...] as of this encounter (statuses as of 06/03/2024) Resolved Problems Problem Noted Date Diagnosed Date Resolved Date Atrial fibrillation 05/31/2016 11/21/19 24 Microalbuminuria 05/31/2016 10/26/2021 documented as of this encounter (statuses as of 06/03/2024) Immunizations Name Administration Dates Next Due COVID-19 mRNA, LNP-s, No Pre serve, 2-Dose Series ([employer]) 07/23/2020,06/25/2020 COVID-19, MRNA-LNP, PF, 50 M CG/0.5 [...] Care Team (Late st Contact Info) Description 06/10/2024 9:30 AM EST Office Visit Otolaryngology [facility] [address] [place] [address] Apurva Adam MD [address] [place] [address] 06/10/2024 2:20 PM EST Office Visit Neurology [facility] [address] [place] [address] Adarsh [place], [address] [place] [address] 06/16/2024 7:40 AM EST Office Visit Family Practice, [place] [facility] [place] [address] Nic Durbin MD [address] [facility] [place] [address] 06/25/2025 7:40 AM EST Office Visit Dermatology, [place] [address] [place] [address] Hilary Faith, PA-C [address] [place] [address] [place] [address] Health Maintenance Due Date Last Done Comments CKD PHOS USE SMARTSET 75852 09/12/1963 Adult Wellness Visit 09/12/2011 COVID-19 Vaccine [...] Additional history exists CKD HGB USE SMARTSET 12551 11/19/202411/19, 10/24/2021, 06/02/2020, Additional history exists Depression [...] Documents on File Type Date Recorded Patient Environmental Services Project Manager Expl anation Advance Directives and Living Will 01/03/2005 LIVING WILL Power of Joint Machine Operator 01/03/2005 POWER OF A TTORNEY DURABLE GENERAL POWER OF GYN PHYSICIAN Care Teams Brainer Relationship Specialty Start Date End Date Nic Durbin MD PCP - General Family Medicine 05/23/16 documented as of this encounter
--- OUTSIDE RECORDS SUMMARY | 2024-09-20 07:19 | External Medical Summary | Summary of Care ---
Author Name Unknown Organization [facility] Address [address] [place] [address] Phone [phone] Care Team Providers Care Exhaust Emissions Inspector Name Role Phone Nic Durbin MD Primary Care Provider [phone]- [phone] Reason for Visit * Reason Onset Date Comments Fax 06/03/2024 Encounter Details Date Type Department Care Team (Late st Contact Info) Description 06/03/2024 Telephone [facility] [address] [place] [address] Nic Durbin MD [address] [facility] [place] [address] Fax Allergies No known active allergiesdocumented as of [...] mRNA, LNP-s, No Pre serve, 2-Dose Series ([employer]) 07/23/2020,06/25/2020 COVID-19, MRNA-LNP, PF, 50 M CG/0.5 [...] Telephone Encounter - Hilary Bonds OSA - 06/03/2024 10:25 AM EST Faxed. 06/03/2024 * Telephone Encounter - Yessica Navarro OSA - 06/03/2024 9:14 AM EST Caller requesting the following information to be faxed: Name/Company of caller: [employer] Information requested to be faxed: speech therapy referral order Fax number: [phone] Attention to Name/Company: [facility] Any additional information?: appt Tomorrow documented in this encounter Plan of Treatment Upcoming Encounters Date Type Department Care Team (Late st Contact Info) Description 06/10/2024 9:30 AM EST Office Visit Otolaryngology [facility] [address] [address] Apurva Adam MD [address] [address] 06/10/2024 2:20 PM EST Office Visit Neurology [facility] Adilia Orick [address] [facility] [place] [address] [address] [place], [address] [facility] [place] [address] 06/16/2024 7:40 AM EST Office Visit Family Practice, Boaz Zhu [address] [place] [address] Nic Durbin MD [address] [place] [address] 06/25/2025 7:40 AM EST Office Visit Dermatology, Boaz Thomas [address] [place] [phone] Hilary Faith PA-C [address] [place] [address] [address] [place] [address] Health Maintenance Due Date Last Done Comments CKD PHOS USE SMARTSET 58309 09/12/1963 Adult Wellness Visit 09/12/2011 COVID-19 Vaccine ( season) 2024 03/19/2023, 03/29/2021, 07/23/2020, Additional history exists Influenza Vaccine (FLU shot) (#1) 2024 03/19/2023, 05/01/2022, 04/25/2021, Additional history exists B-12 05/18/2024 05/18/2023, 04/13, 04/21/2021, Additional history exists GFR 09/21/2024 03/24/2024, 07/0 01/2024, 05/18/2023, Additional history exists HbA1c 09/21/2024 03/24/2024, 07/0 01/2024, 05/18/2023, Additional history exists Albumin/Creatinine Ratio 11/19/2024 072 024, 10/24/2021, 08/20/2018, Additional history exists CKD HGB USE SMARTSET 25760 11/19/202411/19, 10/24/2021, 06/02/2020, Additional history exists Depression [...] on File Type Date Recorded 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
--- OUTSIDE RECORDS SUMMARY | 2024-09-20 07:19 | External Medical Summary | Summary of Care ---
Author Name Unknown Organization [facility] Address [address] [place] [address] Phone [phone] Care Team Providers Care Manager Supply Chain Name Role Phone Nic Durbin MD Primary Care Provider [phone]- [phone] Reason for Referral * Evaluate & Treat - Unlimited Visits (Within 10 days (routine)) - Authorized Specialty Diagnoses / Procedures Referred By Dillon valderrama Referred To Contact Neurology Diagnoses Hospital discharge follow-up Stroke-like symptoms Expressive aphasia Jeffery Aldrich PA-C [address] [place] [address] Phone: tel: fax: Referral ID Status Reason Start Date Expiration Date Visits Requested Visits Authorized [id number] Authorized Specialty Services Required 06/03/2024 [id number] Question Answer Referral Priority Within 10 days (routine) Where should this appointment be scheduled? [facility] Is this referral being placed for insurance purposes ONLY No, patient needs appointment [facility] REFERRAL QUESTIONS Stroke * Evaluate & Treat - Unlimited Visits (Within 10 days (routine)) - Authorized Specialty Diagnoses / Procedures Referred By Dillon valderrama Referred To Contact Speech Pathology / Speech Pathology Diagnoses Stroke-like symptoms Expressive aphasia Jeffery Aldrich PA-C [address] [place] [address] Phone: tel: fax: Referral ID Status Reason Start Date Expiration Date Visits Requested Visits Authorized [id number] Authorized Specialty Services Required 06/03/2024 [id number] Question Answer Referral Priority Within 10 days (routine) Where should this appointment be scheduled? External - [facility] * Evaluate & Treat - Unlimited Visits (Within 10 days (routine)) - Authorized Specialty Diagnoses / Procedures Referred By Dillon valderrama Referred To Contact Otolaryngology Diagnoses Mass of submandibular region Jeffery Aldrich PA-C [address] [address] Phone: tel: fax: Referral ID Status Reason Start Date Expiration Date Visits Requested Visits Authorized [id number] Authorized Specialty Services Required 06/03/[phone] Question Answer Referral Priority Within 10 days (routine) Where should this appointment be scheduled? [facility] Reason for Referral Head/Neck/Cancer Conditions Specific Condition: Head/Neck Comments Per CT report 05/2024 at [facility] - "Indeterminate approximate 1 cm right submandibular nodule. Neoplasm and lymph node considered. Correlate clinically." Reason for Visit * Reason Onset Date Comments Hospital Follow-Up Patient is he re for a hospital follow up, seen at [facility] and discharged 06/01/24. Patient was admitted for 24 hours for stroke like symptoms. Patient has a chronic and severe sinus infection on L side, would like to discuss treatment for it. Patient would like to discuss referral for speech therapy. Hospital Follow-Up 06/03/2024 Encounter Details Date Type Department Care Team (Late st Contact Info) Description 06/03/2024 8:20 AM EST Office Visit [facility] [address] [phone] Jeffery Aldrich PA-C [address] [address] Hospital discharge follow-up*; Stroke-like symptoms; Expressive aphasia; Chronic anticoagulation; Chronic atrial fibrillation (HCC); HTN, goal below 130/80; Type 2 diabetes mellitus with hemoglobin A1c goal of less than 7.0% (HCC); Chronic kidney disease, stage 3a (HCC); Dyslipidemia, goal LDL below 70; Mass of submandibular region; Chronic sinusitis, unspecified location; Encounter for long-term (current) use of medications Allergies No known active allergiesdocumented as of this encounter (statuses as of 06/03/2024) Medications Metoprolol Succinate 50 MG Oral Capsule ER 24 Hour SprinkleIndicati ons:Permanent atrial fibrillation (HCC) Take 50 mg by mouth in the morning and 50 mg before bedtime. 180 Capsule 3 024 Active Rivaroxaban 20 MG Oral Tablet (Xarelto) Take 1 tablet by mouth daily with dinner 90 Tablet 3 024 Active amLODIPine Besylate 5 MG Oral Tablet (Norvasc)Indicat ions:HTN, goal below 130/80 TAKE 1 TABLET BY MOUTH EVERY DAY IN THE MORNING 90 Tablet 3 024 Active Lisinopril 30 MG Oral TabletIndication s:Type 2 diabetes mellitus with hemoglobin A1c goal of less than 8.0% (HCC) Take 1 Tablet by mouth in the morning. 90 Tablet 3 024 Active SITagliptin Phosphate 100 MG Oral Tablet (Januvia) Take 1 Tablet by mouth in the morning. 90 Tablet 3 024 Active Dapagliflozin Propanediol 10 MG Oral Tablet (Farxiga) Take 1 tablet by mouth daily 90 Tablet 3 024 Active metFORMIN HCl 500 MG Oral Tablet (Glucophage) Take 2 Tablets by mouth in the morning and 2 Tablets before bedtime. 360 Tablet 3 024 Active Glimepiride 1 MG Oral Tablet (Amaryl) Take 1 Tablet by mouth in the morning. with the first main meal of the day for diabetes. 90 Tablet 3 024 Active Cetirizine HCl 10 MG Oral Tablet (ZyrTEC) Take 1 Tablet by mouth in the morning. 90 Tablet 3 024 Active Fluticasone Propionate 50 MCG/ACT Nasal Suspension (Flonase) Administer 2 Sprays into each nostril in the morning. 16 g 1 024 Active Fluorouracil 5 % External Cream (Efudex)Indicati ons:Actinic keratosis Start May or 2024: apply thin layer to forehead and entire scalp 2x daily for 3 weeks, then please send photos through My Chart at the end of the treatment. 40 g 1 024 Active Additional Information Patient not taking.Reported on 06/03/2024 Atorvastatin Calcium 40 MG Oral Tablet (Lipitor)Indicat ions:Dyslipidemi a, goal LDL below 70 Take 1 Tablet by mouth in the morning. 90 Tablet 1 025 Active Amoxicillin-Pot Clavulanate 875-125 MG Oral Tablet (Augmentin)Indic ations:Mass of submandibular region,Chronic sinusitis, unspecified location Take 1 Tablet by mouth in the morning and 1 Tablet before bedtime. Do all this for 10 days. 20 Tablet 025 2024 Active Atorvastatin Calcium 40 MG Oral Tablet (Lipitor) 1 Tablet. 025 2024 Discontinued(R efill) Amoxicillin-Pot Clavulanate 875-125 MG Oral Tablet (Augmentin)Indic ations:Mass of submandibular region Take 1 Tablet by mouth in the morning and 1 Tablet before bedtime. Do all this for 10 days. 20 Tablet 025 2024 Discontinued documented as of this encounter (statuses [...] mRNA, LNP-s, No Pre serve, 2-Dose Series ([email or web address]) 07/23/2020,06/25/2020 COVID-19, MRNA-LNP, PF, 50 M CG/0.5 [...] Sign Reading Time Taken Comments Blood Pressure 132/78 06/03/2024 9:31 AM EST man ual Pulse 92 06/03/2024 8:27 AM EST Temperature 35.9 °C (96.6 °F) 06/03/2024 8:27 AM ES T Respiratory Rate 16 06/03/2024 8:27 AM EST Oxygen Saturation 98% 06/03/2024 8:27 AM EST Inhaled Oxygen Concentration - - Weight 87.8 kg (193 lb 8 oz) 06/03/2024 8:27 AM EST Height 172.7 cm (5' 8") 06/03/2024 8:27 AM EST Body Mass Index 29.42 06/03/2024 8:27 AM EST documented in this encounter Progress Notes * Jeffery Aldrich PA-C - 06/03/2024 8:37 AM EST SUBJECTIVE: Pawan Majano is a 78 year old male. Chief Complaint Patient presents with Hospital Follow-Up Patient is here for a hospital follow up, seen at [facility] and discharged 06/01/24. Patient wasadmitted for 24 hours for stroke like symptoms. Patient has a chronic and severe sinus infection onL side, would like to discuss treatment for it. Patient would like to discuss referral for speech therapy. Hospital Follow-Up Recent Admission: Patient was recently admitted to [facility] 05/31/24 d/t word finding difficulty. noticed speech was "garbled" when she returned home from grocery shopping 05/31, patient was sitting there for an hour tying fishing flies - although he does not remember the details during this timeframe, the flies were reportedly done well. He agreeably went to ER for evaluation, but denies any incidents of extremity weakness, numbness/tingling or gait disturbances. In hindsight jennifer may have had slight speech disturbance right before she left for the store, but was perfectly normal at breakfast time that day. The date of discharge was 06/01/24. Discharge report received and reviewed. Dx stroke-like symptoms, expressive aphasia, chronic anticoagulation. 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 Neurology consulted, to f/u outpatient 4-6 weeks, wishes to schedule with Rocio. To start speech therapy, already scheduled at [facility]. Statin started. Continued Xarelto, metoprolol. His speech has significantly improved since hospitalization. He is not currently monitoring home BP but does have access to automated arm cuff, encouraged him to track and bring to next OV, goal <130/80. DM within goal <7. Will f/u lipid labs to ensure LDL <70. Former cigar smoker, encouraged to refrain. Alcohol intake 3-4 beverages/month. In hindsight, patient admits he had a similar event Summer 2023 where he was unable to talk for 3 minutes - likely TIA. Also years ago when first diagnosed with A.fib it was found d/t apparent thought and speech confusion. Incidental finding of submandibular nodule on CT, to f/u outpatient. "CT head wo contrast - 1. Cerebral atrophy. No acute changes. 2. Chronic left frontal, ethmoid and maxillary sinus opacification. CTA head and neck - 1. No significant angiographic abnormality in the neck. 2. Chronic opacification left frontal, ethmoid and maxillary sinuses. 3. Indeterminate approximate 1 cm right submandibularnodule. Neoplasm and lymph node considered. Correlate clinically." Patient admits chronic/recurrent sinus pressure left sided, thick green nasal drainage x 1 year. History: Patient Active Problem List Diagnosis Type 2 diabetes mellitus with hemoglobin A1c goal of less than 7.0% (HCC) Chronic atrial fibrillation (HCC) Hx of nonmelanoma skin cancer Hx of actinic keratosis Chronic kidney disease, stage 3a (HCC) HTN, goal below 130/80 Dyslipidemia, goal LDL below 70 Current Outpatient Medications Medication Sig Dispense Refill [...] nostril in the morning. 16 g 1 Amoxicillin-Pot Clavulanate 875-125 MG Oral Tablet (Augmentin) Take 1 Tablet by mouth in the morning and 1 Tablet before bedtime. Do all this for 10 days. 20 Tablet 0 Atorvastatin Calcium 40 MG Oral Tablet (Lipitor) Take 1 Tablet by mouth in the morning. 90 Tablet 1 Fluorouracil 5 % External Cream (Efudex) Start May or 2024: apply thin layer to forehead and entire scalp 2x daily for 3 weeks, then please send photos through My Chart at the end of the treatment. (Patient not taking: Reported on 06/03/2024) 40 g 1 No current facility-administered medications for this visit. Current and discharge medications have been reconciled. Review of patient's allergies indicates: No Known Allergies OBJECTIVE: BP 132/78 Comment: manual | Pulse 92 | Temp 96.6 °F (35.9 °C) (Tympanic) | Resp 16 | Ht 5' 8" (1.727 m) | Wt 193 lb 8 oz (87.8 kg) | SpO2 98% | BMI 29.42 kg/m² | BSA 2.05 m² BP Readings from Last 5 Encounters: 06/03/24 151/68 02/07/24 132/80 11/21/23 126/80 05/18/23 128/70 10/31/22 128/82 PHYSICAL EXAM: General: alert, no distress, well nourished, well developed, and comfortable Head: Normocephalic, no palpable abnormalities Ears: External ears normal, Canals clear, TM's Normal Nose: Purulent drainage from left nare Oropharynx: no erythema, lips, buccal mucosa, and tongue normal, and mucous membranes are moist Heart: irregularly irregular Lungs: lungs clear to auscultation Extremities: no edema Neuro Exam: alert & oriented x 3, speech is fluent but seems to have slight word finding difficulty at times, no focal motor/sensory deficits, gait normal ASSESSMENT/PLAN: Hospital discharge follow-up (Primary) - DISCH MED RECON CUR MED LIS - ADULT NEUROLOGY REFERRAL OP Stroke-like symptoms - SPEECH PATHOLOGY REFERRAL OP - ADULT NEUROLOGY REFERRAL OP Expressive aphasia - SPEECH PATHOLOGY REFERRAL OP - ADULT NEUROLOGY REFERRAL OP Chronic anticoagulation Chronic atrial fibrillation (HCC) HTN, goal below 130/80 - LIPID PANEL WITH DIRECT LDL IF TG IS HIGH; Future; Expected date: 07/03/2024 - COMPREHENSIVE METABOLIC PANEL; Future; Expected date: 07/03/2024 Type 2 diabetes mellitus with hemoglobin A1c goal of less than 7.0% (HCC) - HEMOGLOBIN A1C; Future; Expected date: 07/03/2024 Chronic kidney disease, stage 3a (HCC) - COMPREHENSIVE METABOLIC PANEL; Future; Expected date: 07/03/2024 Dyslipidemia, goal LDL below 70 - Atorvastatin Calcium 40 MG Oral Tablet (Lipitor); Take 1 Tablet by mouth in the morning. - LIPID PANEL WITH DIRECT LDL IF TG IS HIGH; Future; Expected date: 07/03/2024 - COMPREHENSIVE METABOLIC PANEL; Future; Expected date: 07/03/2024 Mass of submandibular region - ADULT/PEDS OTOLARYNGOLOGY REFERRAL OP - Amoxicillin-Pot Clavulanate 875-125 MG Oral Tablet (Augmentin); Take 1 Tablet by mouth in the morning and 1 Tablet before bedtime. Do all this for 10 days. - CBC WITH WBC DIFFERENTIAL; Future; Expected date: 07/03/2024 Chronic sinusitis, unspecified location - Amoxicillin-Pot Clavulanate 875-125 MG Oral Tablet (Augmentin); Take 1 Tablet by mouth in the morning and 1 Tablet before bedtime. Do all this for 10 days. Encounter for long-term (current) use of medications - VITAMIN B12; Future; Expected date: 07/03/2024 FOLLOW-UP: Check-out note: Schedule with ENT. Speech therapy referral to [facility] - [facility] scheduled[facility]. Fasting labs in 4-6 weeks. 06/16/[address] Durbin. I spent a total of 30-39 minutes (exact time 35 mins) minutes on the date of service in preparation, delivery, and documentation of the care provided to Pawan Majano excluding any time spent in performance of separately billed services. Jeffery Aldrich PA-C [facility] [address] [facility] [place] [address] documented in this encounter Nursing Notes * Mere Wood MED ASSIST - 06/03/2024 8:32 AM EST The patient has been properly identified by confirmation of name and date of . Chief Complaint Patient presents with Hospital Follow-Up Patient is here for a hospital follow up, seen at [facility] and discharged 06/01/24. Patient wasadmitted for 24 hours for stroke like symptoms. Patient has a chronic and severe sinus infection onL side, would like to discuss treatment for it. Patient would like to discuss referral for speech therapy. documented in this encounter Plan of Treatment Upcoming Encounters Date Type Department Care Team (Late st Contact Info) Description 06/10/2024 9:30 AM EST Office Visit Otolaryngology [facility] [address] [address] Apurva Adam MD [address] [address] 06/10/2024 2:20 PM EST Office Visit Neurology [facility] [address] [facility] [place] [address] [address], [address] [facility] [place] [address] 06/16/2024 7:40 AM EST Office Visit Family Practice, Boaz Zhu [address] [phone] Nic Durbin MD [address] [address] 06/25/2025 7:40 AM EST Office Visit Dermatology, [address]az [address] [phone] Hilary Faith PA-C [address] [place] [address] [address] [address] Scheduled Orders Name Type Priority Associated Diagnoses Orde r Schedule LIPID PANEL WITH DIRECT LDL IF TG IS HIGH Lab Routine HTN, goal below 130/80 Dyslipidemia, goal LDL below 70 Expected: 07/03/2024, Expires: 06/03/2025 COMPREHENSIVE METABOLIC PANEL Lab Routine HTN, goal below 130/80 Chronic kidney disease, stage 3a (HCC) Dyslipidemia, goal LDL below 70 Expected: 07/03/2024, Expires: 06/03/2025 HEMOGLOBIN A1C Lab Routine Type 2 diabetes mellitus with hemoglobin A1c goal of less than 7.0% (HCC) Expected: 07/03/2024, Expires: 06/03/2025 CBC WITH WBC DIFFERENTIAL Lab Routine Mass of submandibular region Expected: 07/03/2024, Expires: 06/03/2025 VITAMIN B12 Lab Routine Encounter for long-term (current) use of medications Expected: 07/03/2024 (Approximate), Expires: 06/03/2025 Scheduled Referrals Name Type Priority Associated Diagnoses Orde r Schedule ADULT/PEDS OTOLARYNGOLOGY REFERRAL OP Referral Within 10 days (routine) Mass of submandibular region Ordered: 06/03/2024 SPEECH PATHOLOGY REFERRAL OP Referral Within 10 days (routine) Stroke-like symptoms Expressive aphasia Ordered: 06/03/2024 ADULT NEUROLOGY REFERRAL OP Referral Within 10 days (routine) Hospital discharge follow-up Stroke-like symptoms Expressive aphasia Ordered: 06/03/2024 Health Maintenance Due Date Last Done Comments CKD PHOS USE SMARTSET 35953 09/12/1963 Adult Wellness Visit 09/12/2011 COVID-19 Vaccine [...] Additional history exists CKD HGB USE SMARTSET 95069 11/19/202411/19, 10/24/2021, 06/02/2020, Additional history exists Depression [...] as of this encounter Visit Diagnoses Diagnosis Hospital discharge follow-up- Primary Other follow-up examination Stroke-like symptoms Other symptoms involving nervous and musculoskeletal systems Expressive aphasia Aphasia Chronic anticoagulation Long-term (current) use of anticoagulants Chronic atrial fibrillation (HCC) Atrial fibrillation HTN, goal below 130/80 Unspecified essential hypertension Type 2 diabetes mellitus with hemoglobin A1c goal of less than 7.0% (HCC) Chronic kidney disease, stage 3a (HCC) Dyslipidemia, goal LDL below 70 Other and unspecified hyperlipidemia Mass of submandibular region Swelling, mass, or lump in head and neck Chronic sinusitis, unspecified location Encounter for long-term (current) use of medications Encounter for long-term (current) use of other medications documented in this encounter Advance Directives Documents on File Type Date Recorded 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
--- NOTE | 2024-09-20 07:35 | Emergency Department Note ---
Impression & Plan Stroke-like symptoms, Expressive aphasia, Tachycardia, Hypertension, Anticoagulated ED Provider Note NAME: SABAS MONACO AGE: 79 SEX: M : 1945 ARRIVES VIA: Walk-In INFORMANT: [Patient][] ED PROVIDER(S): [Koby Witt MD] CHIEF COMPLAINT: Strokelike symptoms HISTORY OF PRESENT ILLNESS: The patient is a 79-year-old male who woke up this morning with some balance issues, shuffling gait and some issues with his speech. He was slow to respond and sometimes, would say the wrong word. He was brought for evaluation. His noticed a difference this morning. Patient does have a history of CVA, his last stroke was in May, 4 months ago. The patient is on Xarelto and has a history of A-fib. He did not take his morning medications. Last night, the patient went to bed at 10 PM, he felt normal at that time. This is technically his last known well. There has been no cough or congestion. No fever or chills, no vomiting or diarrhea, no urinary complaints. He does not have a headache. PMHx/PSHx/Social Hx: See Below PHYSICAL EXAM: GENERAL: Patient is in no acute distress. HEENT: No acute trauma, normocephalic atraumatic, mucous membranes moist, no nasal congestion. NECK: No stridor, no adenopathy, no meningismus, trachea is midline. LUNGS: Clear to auscultation bilaterally, no wheeze, no rhonchi, breath sounds equal. HEART: Mildly tachycardic and slightly irregular. No murmurs. ABDOMEN: Soft, nontender, no peritonitis. EXTREMITIES: No cyanosis, full range of motion of all the joints without pain or difficulty. NEUROLOGIC: Awake and alert. No speech slur, no facial droop. He does sometimes say the wrong word when asked questions--expressive aphasia noted. There is no extremity drift or cerebellar dysfunction. SKIN: No jaundice, no diaphoresis. DIFFERENTIAL DIAGNOSIS: Stroke, intracranial bleeding, dehydration, electrolyte imbalance, dysrhythmia, among others. EMERGENCY DEPARTMENT PROCEDURES: MEDICAL DECISION MAKING: There are was no leukocytosis or concerning anemia. There was a normal platelet count. INR was somewhat elevated, likely from his DOAC use. There was no significant electrolyte abnormality. Creatinine was somewhat elevated consistent with some dehydration. No worrisome liver enzyme elevation. ECG showed atrial fibrillation, no acute ischemia. Cardiac enzyme testing x 1 was not consistent with acute cardiac injury. Urinalysis did suggest some dehydration, no infection. Brain CT showed no acute bleed or mass effect. CT angio of the head and neck were performed, no significant stenosis or clot. On exam, the patient did demonstrate some expressive aphasia, no focal motor deficits by my exam. He was initially hypertensive and tachycardic. He had not taken his typical morning medications. A stroke alert was called. The patient was given IV Lopressor, a second dose of IV Lopressor was given. He was given a 500 cc saline bolus and then a second 500 cc saline bolus. He received IV magnesium. I did speak with the [place] stroke physician. The patient is not a TNK candidate given the timing of symptoms and his DOAC use. Hydration, magnesium supplementation, hospitalization and inpatient stroke workup was warranted. I spoke with the patient and family. I did speak with case management, the on- call hospitalist was consulted. Of note, the patient's vital signs have improved with the administration of fluids and Lopressor. Stroke is the diagnosis of exclusion. Further workup is needed. Prior/Outside records/notes reviewed: Discharge summary note from 06/01/2024 describing his presentation, hospital course and discharge plan. ECG per my interpretation: Indication was stroke. The ECG shows atrial fibrillation with a rate of 124. There is a right bundle branch block. There is some nonspecific ST changes diffusely. There is some baseline artifact. I see no ST elevation, no PVCs. The QTc is 491. Continuous Cardiac Monitoring per my interpretation: An order was placed for continuous cardiac monitoring. The monitor shows a rate of 117 with atrial fibrillation. Imaging/x-ray results per my interpretation: Chronic Medical/Social conditions affecting care: History of CVA, advanced age, on Xarelto. Care/Management discussed with: [place] stroke neurology-Dr. Padron. Case management and the on-call hospitalist. Level of care consideration(s): After review of the information above and other included data: --I believe the patient requires escalation of care to admission Critical Care Note: I have personally spent 42 minutes of critical care time in the direct management of this patient. This includes bedside care, interpretation of diagnostic studies, and testing, discussion with consultants, patient, and family members, and other required patient management activities. This 42 minutes is in excess of all separately billable procedures. DISPOSITION: Admitted Past Med/Surg History Problem List (Updated 09/20/24 @ 15:06 by Koby Witt MD) Anticoagulated (Acute) Hypertension (Acute) Tachycardia (Acute) Expressive aphasia (Acute) Stroke-like symptoms (Acute) Stroke Chronic anticoagulation (Acute) Stroke-like symptoms (Acute) Expressive aphasia (Acute) Medical History DVT prophylaxis Hypertension Microscopic hematuria Elevated troponin Influenza A Sepsis Type 2 diabetes mellitus Atrial fibrillation Social History Smoking Status: Former smoker Tobacco Type: Cigars Second Hand Exposure: Yes; Do You Dip or Chew Tobacco: No; Hx Alcohol Use: Yes Alcohol type: beer Hx Substance Use: No Preferred Language: Jamaican Communication Ability: Effective Finance Assistant Required: No Beliefs That Will Affect Care: None Current Living Situation: Spouse Other Information That Helps Us Care for You: No Feels Safe at Home: Yes Safety Concerns: Feels Safe At This Time Assistive Devices: None Allergies Allergies Allergy/AdvReac Type Severity Reaction Status Date / Time No Known Allergies Allergy Verified 07/11/21 11:48 Home Meds Home Medications Medication Instructions Recorded Confirmed dapagliflozin propanediol 10 mg 10 mg PO UD 07/11/21 09/20/24 tablet (Farxiga) glimepiride 1 mg tablet 1 mg PO UD 07/11/21 09/20/24 metformin 500 mg tablet 1,000 mg PO BID 07/11/21 09/20/24 sitagliptin phosphate 100 mg 100 mg PO UD 07/11/21 09/20/24 tablet (Januvia) amlodipine 5 mg tablet 5 mg PO DAILY 05/31/24 09/20/24 cetirizine 10 mg tablet 10 mg PO DAILY 05/31/24 09/20/24 fluticasone propionate 50 2 spray intranasal DAILY 05/31/24 09/20/24 mcg/actuation nasal spray,suspension lisinopril 10 mg tablet 30 mg PO UD 05/31/24 09/20/24 apixaban 5 mg tablet 5 mg PO BID 09/20/24 09/20/24 metoprolol succinate 50 mg capsule 50 mg PO BID 09/20/24 09/20/24 rafaela, ext. release 24 hr Previous Rx's Medication Instructions Recorded atorvastatin 40 mg tablet 40 mg PO DAILY #30 tabs 06/01/24 Results & Data (ED) Vital Signs Vital Signs - 24 hr 09/20/24 07:14 09/20/24 07:44 09/20/24 07:51 Temperature 36.8 C Temperature Source Oral Pulse Rate 117 H 134 H Pulse Rate [Apical] 121 H Respiratory Rate 18 22 Respiratory Effort / Characteristics Non-Labored Spontaneous Respiratory Depth Normal Respiratory Pattern Regular Blood Pressure 144/81 H 165/106 H Blood Pressure [Left Arm] 165/106 H Blood Pressure Mean 102 Blood Pressure Mean [Left Arm] 125 Pulse Oximetry 97 97 Oxygen Delivery Method Room Air Room Air Sepsis Recent Fever Within 48 Hours No Sepsis New/Unexplained Change in Mental Status N/A Sepsis Action Taken by Nursing No Action Required 09/20/24 08:10 09/20/24 08:23 09/20/24 08:44 Temperature Temperature Source Pulse Rate 105 H 104 H 90 Pulse Rate [Apical] Respiratory Rate Respiratory Effort / Characteristics Respiratory Depth Respiratory Pattern Blood Pressure 148/97 H 130/113 H Blood Pressure [Left Arm] Blood Pressure Mean Blood Pressure Mean [Left Arm] Pulse Oximetry Oxygen Delivery Method Sepsis Recent Fever Within 48 Hours Sepsis New/Unexplained Change in Mental Status Sepsis Action Taken by Nursing 09/20/24 08:49 09/20/24 09:08 09/20/24 10:00 Temperature Temperature Source Pulse Rate 94 H Pulse Rate [Apical] 88 88 Respiratory Rate 18 22 Respiratory Effort / Characteristics Respiratory Depth Respiratory Pattern Blood Pressure 150/81 H Blood Pressure [Left Arm] 130/113 H 157/99 H Blood Pressure Mean Blood Pressure Mean [Left Arm] 118 118 Pulse Oximetry 97 98 Oxygen Delivery Method Room Air Room Air Sepsis Recent Fever Within 48 Hours Sepsis New/Unexplained Change in Mental Status Sepsis Action Taken by Skilled Nursing Medications Current Medication List: was personally reviewed by me Laboratory Data Attestation: I reviewed the patient's lab results. 09/20/24 07:31 09/20/24 07:31 Lab Results 09/20/24 09/20/24 09/20/24 Range/Units 07:22 07:31 07:32 WBC 10.00 (4.8-10.8) K/ul RBC 5.75 (4.70-6.10) M/uL Hgb 16.1 (14.0-18.0) g/dl POC Hgb 17.7 (14.0-18.0) g/dl Hct 49.8 (42.0-52.0) % POC Hct 52 (42-52) % MCV 86.6 (80.0-100.0) fL MCH 28.0 (25.0-34.0) pg MCHC 32.3 (32.0-36.0) g/dL RDW Std Deviation 45.9 (36.4-46.3) fL RDW Coeff of Leila 14.5 (11.5-14.5) % Plt Count 215 (130-400) K/uL MPV 10.7 (9.4-12.4) fL Immature Gran % (Auto) 0.3 % Neut % (Auto) 65.2 % Lymph % (Auto) 24.9 % [place] % (Auto) 8.5 % Eos % (Auto) 0.8 % Baso % (Auto) 0.3 % Neut # (Auto) 6.52 H (1.40-6.50) K/uL Lymph # (Auto) 2.49 (1.20-3.40) K/uL [place] # (Auto) 0.85 H (0.11-0.59) K/uL Eos # (Auto) 0.08 (0.00-0.50) K/uL Baso # (Auto) 0.03 (0.00-0.20) K/uL Immature Gran # (Auto) 0.03 (0.01-0.20) K/uL PT 12.5 H (9.0-12.0) Seconds INR 1.2 H (0.9-1.1) APTT 36 H (21-31) Seconds PTT Ratio 1.3 POC Sodium 141 (135-144) mmol/L Sodium 140 (136-145) mmol/L POC Potassium 4.3 (3.3-5.0) mmol/L Potassium 4.3 (3.5-5.1) mmol/L POC Chloride 104 (101-112) mmol/L Chloride 105 (98-107) mmol/L Carbon Dioxide 27 (21-32) mmol/L POC Total CO2 23 L (24-31) mmol/L Anion Gap 8 (3-11) POC Anion Gap 19.0 (16-25) mmol/L POC BUN 20 H (7-18) mg/dl BUN 18 (6-23) mg/dl Creatinine 1.41 H (0.6-1.4) mg/dl POC Creatinine 1.5 H (0.6-1.3) mg/dl Est Cr Clr Drug Dosing 44.7 ml/min eGFR 50.69 BUN/Creatinine Ratio 12.8 (10-20) Glucose 157 H (70-99(Fasting)) mg/dl POC Glucose 145 H (70-99) mg/dl POC Glucose (other) 155 H (70-99) mg/dl Calcium 9.6 (8.6-10.3) mg/dl POC Ioniz Calcium Marin 1.15 (1.12-1.32) mmol/l Magnesium 1.8 (1.7-2.4) mg/dl Total Bilirubin 0.5 (0.2-1.0) mg/dl AST 25 (13-39) U/L ALT 32 (7-52) U/L Alkaline Phosphatase 52 (34-104) U/L Troponin I High Sens 11.6 (0-20) pg/ml Total Protein 8.0 (6.0-8.3) gm/dl Albumin 4.6 (3.4-5.0) gm/dl Globulin 3.4 (2.5-4.0) gm/dl Albumin/Globulin Ratio 1.4 (0.9-2) Urine Color Urine Appearance (Clear) Urine pH (4.5-7.5) Ur Specific Shushan (1.000-1.030) Urine Protein (Negative) Urine Glucose (UA) (Negative) Urine Ketones (Negative) Urine Blood (Negative) Urine Nitrite (Negative) Urine Bilirubin (Negative) Urine Urobilinogen (Negative) Ur Leukocyte Esterase (Negative) Urine WBC (Auto) (0-5) /hpf Urine RBC (Auto) (0-2) /hpf U Hyaline Cast (Auto) (0-2) /lpf U Epithel Cells (Auto) (0-2) /hpf Urine Bacteria (Auto) (None Seen) 09/20/24 Range/Units 08:40 WBC (4.8-10.8) K/ul RBC (4.70-6.10) M/uL Hgb (14.0-18.0) g/dl POC Hgb (14.0-18.0) g/dl Hct (42.0-52.0) % POC Hct (42-52) % MCV (80.0-100.0) fL MCH (25.0-34.0) pg MCHC (32.0-36.0) g/dL RDW Std Deviation (36.4-46.3) fL RDW Coeff of Leila (11.5-14.5) % Plt Count (130-400) K/uL MPV (9.4-12.4) fL Immature Gran % (Auto) % Neut % (Auto) % Lymph % (Auto) % [place] % (Auto) % Eos % (Auto) % Baso % (Auto) % Neut # (Auto) (1.40-6.50) K/uL Lymph # (Auto) (1.20-3.40) K/uL [place] # (Auto) (0.11-0.59) K/uL Eos # (Auto) (0.00-0.50) K/uL Baso # (Auto) (0.00-0.20) K/uL Immature Gran # (Auto) (0.01-0.20) K/uL PT (9.0-12.0) Seconds INR (0.9-1.1) APTT (21-31) Seconds PTT Ratio POC Sodium (135-144) mmol/L Sodium (136-145) mmol/L POC Potassium (3.3-5.0) mmol/L Potassium (3.5-5.1) mmol/L POC Chloride (101-112) mmol/L Chloride (98-107) mmol/L Carbon Dioxide (21-32) mmol/L POC Total CO2 (24-31) mmol/L Anion Gap (3-11) POC Anion Gap (16-25) mmol/L POC BUN (7-18) mg/dl BUN (6-23) mg/dl Creatinine (0.6-1.4) mg/dl POC Creatinine (0.6-1.3) mg/dl Est Cr Clr Drug Dosing ml/min eGFR BUN/Creatinine Ratio (10-20) Glucose (70-99(Fasting)) mg/dl POC Glucose (70-99) mg/dl POC Glucose (other) (70-99) mg/dl Calcium (8.6-10.3) mg/dl POC Ioniz Calcium [place] (1.12-1.32) mmol/l Magnesium (1.7-2.4) mg/dl Total Bilirubin (0.2-1.0) mg/dl AST (13-39) U/L ALT (7-52) U/L Alkaline Phosphatase (34-104) U/L Troponin I High Sens (0-20) pg/ml Total Protein (6.0-8.3) gm/dl Albumin (3.4-5.0) gm/dl Globulin (2.5-4.0) gm/dl Albumin/Globulin Ratio (0.9-2) Urine Color Yellow Urine Appearance Clear (Clear) Urine pH 6.0 (4.5-7.5) Ur Specific [place] 1.037 H (1.000-1.030) Urine Protein Trace H (Negative) Urine Glucose (UA) 2+ H (Negative) Urine Ketones Trace H (Negative) Urine Blood Trace H (Negative) Urine Nitrite Negative (Negative) Urine Bilirubin Negative (Negative) Urine Urobilinogen Negative (Negative) Ur Leukocyte Esterase Negative (Negative) Urine WBC (Auto) 0-5 (0-5) /hpf Urine RBC (Auto) 0-2 (0-2) /hpf U Hyaline Cast (Auto) 0-2 (0-2) /lpf U Epithel Cells (Auto) 0-2 (0-2) /hpf Urine Bacteria (Auto) None Seen (None Seen) Administered Medications Insulin Aspart (Insulin Aspart Per Unit Charge) 0 units SC ACHS SHANNON Stop: 10/20/24 11:50 Last Admin: 09/20/24 12:57 Dose: Not Given Documented By: OO Discontinued Medications Apixaban (Apixaban 5 Mg Tablet) 5 mg PO ONE ONE Stop: 09/20/24 10:31 Last Admin: 09/20/24 11:56 Dose: 5 mg Documented By: SHY Aspirin (Aspirin 81 Mg Ectab) 81 mg PO NOW STA Stop: 09/20/24 08:54 Last Admin: 09/20/24 09:12 Dose: 81 mg Documented By: AAKASH Sodium Chloride (Nss) 500 mls @ 999 mls/hr IV .Q31M ONE Stop: 09/20/24 08:34 Last Infusion: 09/20/24 08:38 Dose: Infused Documented By: Admin: 09/20/24 08:15 Dose: 999 mls/hr Documented By: AAKASH Sodium Chloride (Nss) 500 mls @ 999 mls/hr IV .Q31M ONE Stop: 09/20/24 09:05 Last Infusion: 09/20/24 09:15 Dose: Infused Documented By: Admin: 09/20/24 08:42 Dose: 999 mls/hr Documented By: AAKASH Magnesium Sulfate/Dextrose (Magnesium Sulfate / D5w) 1 gm in 100 mls @ 100 mls/hr IV Q1H SHANNON Stop: 09/20/24 10:35 Last Infusion: 09/20/24 10:54 Dose: Infused Documented By: Admin: 09/20/24 09:44 Dose: 100 mls/hr Documented By: Infusion: 09/20/24 09:43 Dose: Infused Documented By: Admin: 09/20/24 08:43 Dose: 100 mls/hr Documented By: AAKASH Ioversol (Optiray 320 125ml) 120 ml IV ONCE ONE Stop: 09/20/24 07:38 Last Admin: 09/20/24 07:38 Dose: 120 ml Documented By: SALMA Metoprolol Succinate (Metoprolol Succ 50mg Ext Rel Tab) 50 mg PO NOW STA Stop: 09/20/24 10:35 Last Admin: 09/20/24 13:03 Dose: 50 mg Documented By: SHY Metoprolol Tartrate (Metoprolol Tartrate 1 Mg/Ml Vial) 5 mg IV NOW STA Stop: 09/20/24 07:30 Last Admin: 09/20/24 07:51 Dose: 5 mg Documented By: AAKASH Metoprolol Tartrate (Metoprolol Tartrate 1 Mg/Ml Vial) 2.5 mg IV NOW STA Stop: 09/20/24 08:36 Last Admin: 09/20/24 08:44 Dose: 2.5 mg Documented By: AAKASH Imaging Data Radiologist's Impression: Head CT 09/20/24 07:27 EXAM: CT head/brain wo con CLINICAL HISTORY: neuro deficit, acute stroke suspected TECHNIQUE: Multiple axial images are obtained from the skull base to the vertex without contrast. CT scan was performed according to ALARA (as low as reasonably achievable). COMPARISON: CT,05/31/2024 11:27:00 AUDIO VIDEO TECHNICIAN FINDINGS: There is cerebral atrophy. Focal encephalomalacia involving left anterior temporal lobe. No evidence of space occupying lesion, hemorrhage, edema, mass effect, midline shift, extra axial collection, or hydrocephalus is noted. Basal cisterns are symmetric and normal in size and configuration. There are scattered periventricular hypodensities as can be seen with chronic microvascular ischemic changes. The [place]-white matter differentiation is preserved. Visualized mastoid air cells are well aerated. Left maxillary sinus polyp with mucosal thickening of left ethmoidal and left frontal sinusitis. Orbital contents are within normal limits. Bony structures are intact. IMPRESSION: 1. No evidence of acute intracranial abnormality is demonstrated. 2. Age related Cerebral atrophy with chronic microvascular ischemic changes. 3. Focal encephalomalacia involving left anterior temporal lobe. 4. Left maxillary sinus polyp with mucosal thickening of left ethmoidal and left frontal sinusitis. 5. No interval changes Electronically signed by Mark Ernst 09-20-2024 08:18 AM Head CTA 09/20/24 07:27 EXAM: CT angio head w con CLINICAL HISTORY: neuro deficit, acute stroke suspected TECHNIQUE: Contrast enhanced thin slice CT angiography scan of the cerebral vessels was performed with intravenous contrast. Angiographic images were processed, 3D MIP images were acquired for interpretation. Contiguous axial images were obtained. Reformatted coronal and sagittal images were also reviewed. If IV contrast material had not been administered, the likelihood of detecting abnormalities relevant to the patient's condition would have been substantially decreased. CT scan was performed according to ALARA (as low as reasonably achievable). COMPARISON: none FINDINGS: Bilateral internal carotid arteries show normal course, calibre and opacification in the canalicular and cavernous part. Their division into the anterior cerebral artery and middle cerebral artery is defined. 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 Bilateral vertebral arteries are seen to unite the form the basilar artery in a normal fashion. Basilar artery shows normal course, caliber and opacification. Its division into the posterior cerebral arteries is defined. Bilateral P1 and P2 segments are normal. Visualized venous structures show normal opacification. No evidence of intracranial aneurysm or AV malformation is seen. IMPRESSION: 1. No evidence of stenosis or aneurysm. No evidence of dissection. 2. 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 Electronically signed by Mark Ernst 09-20-2024 08:18 AM Neck CTA 09/20/24 07:27 EXAM: CT angio neck with con CLINICAL HISTORY: neuro deficit, acute stroke suspected TECHNIQUE: Contrast enhanced thin slice CT angiography scan of the carotid vessels was performed with intravenous contrast. Angiographic images were processed, 3D MIP images were acquired for interpretation.Contiguous axial images were obtained. Reformatted coronal and sagittal images were also reviewed. If IV contrast material had not been administered, the likelihood of detecting abnormalities relevant to the patient's condition would have been substantially decreased. CT scan was performed according to ALARA (as low as reasonably achievable). COMPARISON: CT, 05/31/2024 12:23:00 AUDIO VIDEO TECHNICIAN FINDINGS: Included great vessels of the aortic arch are grossly unremarkable. Common carotid artery, carotid Bulb, internal carotid artery , and origin of the external carotid artery are well opacified. Few small eccenteric calcified plaques at origin of bilateral internal carotid arteries. Vertebral arteries are well opacified. Jugular veins are well opacified. Included lung apices are grossly unremarkable. Thyroid gland appears unremarkable. IMPRESSION: 1. No evidence of stenosis or aneurysm. No evidence of dissection. 2. Few small eccenteric calcified plaques at origin of bilateral internal carotid arteries. 3. No interval changes. Electronically signed by Mark Ernst 09-20-2024 08:22 AM Discharge Plan Visit Data Chief Complaint: Stroke/CVA Symptoms Stated Complaint: STROK ED Provider: Koby Witt Discharge Problem: Stroke-like symptoms, Expressive aphasia, Tachycardia, Hypertension, Anticoagulated Patient Disposition: Admitted As Inpatient Condition: Serious Discharge Instructions Interventions: ED Discharge Assessment Last Done: 09/20/24 11:04 Discharge Problem: Hypertension Qualifiers: Hypertension type: unspecified Qualified Code(s): I10 - Essential (primary) hypertension
[2024-09-20] MEDS: OPTIRAY 320 125ml IV ONE (07:38)
[2024-09-20 07:40] LABS: Basophils # (auto) 0.03 K/uL (0.00-0.20); Basophils % (auto) 0.3 %; Eosinophils # (auto) 0.08 K/uL (0.00-0.50); Eosinophils % (auto) 0.8 %; Hematocrit (blood only) 49.8 % (42.0-52.0); Hemoglobin 16.1 g/dl (14.0-18.0); Immature Granulocytes # (auto) 0.03 K/uL (0.01-0.20); Immature Granulocytes % (auto) 0.3 %; Lymphocytes # (auto) 2.49 K/uL (1.20-3.40); Lymphocytes % (auto) 24.9 %; Mean Corpuscular Hgb Conc 32.3 g/dL (32.0-36.0); Mean Corpuscular Volume 86.6 fL (80.0-100.0); Mean Platelet Volume 10.7 fL (9.4-12.4); Monocytes # (auto) 0.85 K/uL (0.11-0.59); Monocytes % (auto) 8.5 %; Neutrophils # (auto) 6.52 K/uL (1.40-6.50); Neutrophils % (auto) 65.2 %; Platelet Count 215 K/uL (130-400); RDW Coefficient of Variation 14.5 % (11.5-14.5); RDW Standard Deviation 45.9 fL (36.4-46.3); Red Blood Count 5.75 M/uL (4.70-6.10)
[2024-09-20 07:44] LABS: iSTAT Creatinine 1.5 mg/dl (0.6-1.3); iSTAT Hemoglobin 17.7 g/dl (14.0-18.0); iSTAT Ionized Calcium 1.15 mmol/l (1.12-1.32); iSTAT Potassium 4.3 mmol/L (3.3-5.0)
[2024-09-20 07:50] LABS: INR 1.2 (0.9-1.1); Partial Thromboplastin Ratio 1.3; Partial Thromboplastin Time 36 Seconds (21-31); Prothrombin Time 12.5 Seconds (9.0-12.0)
[2024-09-20] MEDS: METOPROLOL TARTRATE 1 MG/ML VIAL IV STA ×2 (07:51→08:44)
[2024-09-20 08:02] LABS: Albumin Globulin Ratio 1.4 (0.9-2); Albumin Level 4.6 gm/dl (3.4-5.0); BUN Creatinine Ratio 12.8 (10-20); Bilirubin,Total 0.5 mg/dl (0.2-1.0); Calcium 9.6 mg/dl (8.6-10.3); Creatinine Clr Calc Pharmacy 44.7 ml/min; Globulin 3.4 gm/dl (2.5-4.0); Magnesium 1.8 mg/dl (1.7-2.4); Potassium 4.3 mmol/L (3.5-5.1)
[2024-09-20 08:08] LABS: Troponin I High Sensitivity 11.6 pg/ml (0-20)
[2024-09-20] MEDS: SODIUM CHLORIDE 0.9% 500 ML IV ONE ×2 (08:15→08:42)
--- NOTE | 2024-09-20 08:18 | CT Scan Report ---
EXAM: CT angio head w con CLINICAL HISTORY: neuro deficit, acute stroke suspected TECHNIQUE: Contrast enhanced thin slice CT angiography scan of the cerebral vessels was performed with intravenous contrast. Angiographic images were processed, 3D MIP images were acquired for interpretation. Contiguous axial images were obtained. Reformatted coronal and sagittal images were also reviewed. If IV contrast material had not been administered, the likelihood of detecting abnormalities relevant to the patient's condition would have been substantially decreased. CT scan was performed according to ALARA (as low as reasonably achievable). COMPARISON: none FINDINGS: Bilateral internal carotid arteries show normal course, calibre and opacification in the canalicular and cavernous part. Their division into the anterior cerebral artery and middle cerebral artery is defined. 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 Bilateral vertebral arteries are seen to unite the form the basilar artery in a normal fashion. Basilar artery shows normal course, caliber and opacification. Its division into the posterior cerebral arteries is defined. Bilateral P1 and P2 segments are normal. Visualized venous structures show normal opacification. No evidence of intracranial aneurysm or AV malformation is seen. IMPRESSION: 1. No evidence of stenosis or aneurysm. No evidence of dissection. 2. 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 Electronically signed by Mark Ernst 09-20-2024 08:18 AM
--- NOTE | 2024-09-20 08:19 | CT Scan Report ---
EXAM: CT head/brain wo con CLINICAL HISTORY: neuro deficit, acute stroke suspected TECHNIQUE: Multiple axial images are obtained from the skull base to the vertex without contrast. CT scan was performed according to ALARA (as low as reasonably achievable). COMPARISON: CT,05/31/2024 11:27:00 SHALE MINER FINDINGS: There is cerebral atrophy. Focal encephalomalacia involving left anterior temporal lobe. No evidence of space occupying lesion, hemorrhage, edema, mass effect, midline shift, extra axial collection, or hydrocephalus is noted. Basal cisterns are symmetric and normal in size and configuration. There are scattered periventricular hypodensities as can be seen with chronic microvascular ischemic changes. The [place]-white matter differentiation is preserved. Visualized mastoid air cells are well aerated. Left maxillary sinus polyp with mucosal thickening of left ethmoidal and left frontal sinusitis. Orbital contents are within normal limits. Bony structures are intact. IMPRESSION: 1. No evidence of acute intracranial abnormality is demonstrated. 2. Age related Cerebral atrophy with chronic microvascular ischemic changes. 3. Focal encephalomalacia involving left anterior temporal lobe. 4. Left maxillary sinus polyp with mucosal thickening of left ethmoidal and left frontal sinusitis. 5. No interval changes Electronically signed by Mark Ernst 09-20-2024 08:18 AM
--- NOTE | 2024-09-20 08:22 | CT Scan Report ---
EXAM: CT angio neck with con CLINICAL HISTORY: neuro deficit, acute stroke suspected TECHNIQUE: Contrast enhanced thin slice CT angiography scan of the carotid vessels was performed with intravenous contrast. Angiographic images were processed, 3D MIP images were acquired for interpretation.Contiguous axial images were obtained. Reformatted coronal and sagittal images were also reviewed. If IV contrast material had not been administered, the likelihood of detecting abnormalities relevant to the patient's condition would have been substantially decreased. CT scan was performed according to ALARA (as low as reasonably achievable). 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 Common carotid artery, carotid Bulb, internal carotid artery , and origin of the external carotid artery are well opacified. Few small eccenteric calcified plaques at origin of bilateral internal carotid arteries. Vertebral arteries are well opacified. Jugular veins are well opacified. Included lung apices are grossly unremarkable. Thyroid gland appears unremarkable. IMPRESSION: 1. No evidence of stenosis or aneurysm. No evidence of dissection. 2. Few small eccenteric calcified plaques at origin of bilateral internal carotid arteries. 3. No interval changes. Electronically signed by Mark Ernst 09-20-2024 08:22 AM
[2024-09-20] MEDS: MAGNESIUM SULFATE / D5W 1 GM/100 ML BAG IV SCH (08:43)
[2024-09-20 08:59] LABS: Appearance Urine Clear (Clear); Bacteria Urine Automated None Seen (None Seen); Bilirubin Urine Negative (Negative); Blood Urine Trace (Negative); Cast Urine Automated 0-2 /lpf (0-2); Color Urine Yellow; Epithelial Cell Urine Auto 0-2 /hpf (0-2); Glucose Urine UA 2+ (Negative); Ketones Urine Trace (Negative); Leukocyte Esterase Urine Negative (Negative); Nitrite Urine Negative (Negative); Protein Urine Trace (Negative); RBC Urine Automated 0-2 /hpf (0-2); Specific Gravity Urine 1.037 (1.000-1.030); Urobilinogen Urine Negative (Negative); WBC Urine Automated 0-5 /hpf (0-5)
[2024-09-20] MEDS: ASPIRIN 81 MG ECTAB PO STA (09:12)
--- NOTE | 2024-09-20 10:09 | History & Physical Report ---
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 Based on patient history, exam and risk factors, findings suggestive of acute CVA. Per outpatient Neuro visit on 06/10/24, his xarelto was changed to eliquis 5mg BID. According to patient, he had continued taking his Xarelto symptoms despite being changed to Eliquis. He stated that he was taking Xarelto to finish before starting the Eliquis which he still has at home. Counseled patient to take Eliquis as recommended by neurology. Start Eliquis 5 mg twice daily. 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 Neurology consult. Hold home antihypertensive for permissive hypertension A-fib with RVR in ER this morning. Currently rate controlled in the 90s. Patient noted that medication list from PCP is correct. Pharmacy to call the mail delivery pharmacy to confirm according to as well. For now, resume home metoprolol succinate per PCP note. Hold home metformin and other oral antidiabetic regimen. Insulin sliding scale while inpatient. Passed dysphagia screen by ER nurse. Start Carb controlled heart healthy diet CKD3 Cr at baseline. Avoid nephrotoxins and monitor Admit to PCU DVT ppx- Eliquis Code status- Full I spent a total of 75 minutes coordinating, documenting and providing care for this patient excluding time spent in performance of separately billed services History of Present Illness Chief Complaint: Stroke like symptoms Primary Care Provider: Nic Durbin MD 79-year-old man with history of diabetes mellitus type 2, A-fib, CVA in May 2024, CKD 3 with word finding difficulty that started this morning. History provided by patient and was at bedside. reported that she noticed patient having trouble expressing himself on waking up this morning and also some difficulty completing simple tasks such as making his coffee. He also had some unsteady gait. Patient denied any focal weakness but stated that he felt "weird" around his mouth and with his speech. noted some confusion earlier Denied fever, chills, nausea, vomiting, chest pain, shortness of breath, abdominal pain, diarrhea, constipation, dysuria, frequency, urgency. reports some chronic mild cough. Denies smoking or illicit drug use. Drinks alcohol only occasionally. Per outpatient Neuro visit on 06/10/24, his xarelto was changed to eliquis 5mg BID. According to patient, he had continued taking his Xarelto symptoms despite being changed to Eliquis. He stated that he was taking Xarelto to finish before starting the Eliquis which he still has at home. Allergies Allergy/AdvReac Type Severity Reaction Status Date / Time No Known Allergies Allergy Verified 07/11/21 11:48 Home Medications Medication Instructions Recorded Confirmed Type dapagliflozin propanediol 10 mg 10 mg PO UD 07/11/21 09/20/24 History tablet (Farxiga) glimepiride 1 mg tablet 1 mg PO UD 07/11/21 09/20/24 History metformin 500 mg tablet 1,000 mg PO BID 07/11/21 09/20/24 History sitagliptin phosphate 100 mg 100 mg PO UD 07/11/21 09/20/24 History tablet (Januvia) amlodipine 5 mg tablet 5 mg PO DAILY 05/31/24 09/20/24 History cetirizine 10 mg tablet 10 mg PO DAILY 05/31/24 09/20/24 History fluticasone propionate 50 2 spray intranasal DAILY 05/31/24 09/20/24 History mcg/actuation nasal spray,suspension lisinopril 10 mg tablet 30 mg PO UD 05/31/24 09/20/24 History atorvastatin 40 mg tablet 40 mg PO DAILY #30 tabs 06/01/24 09/20/24 Rx apixaban 5 mg tablet 5 mg PO BID 09/20/24 09/20/24 History metoprolol succinate 50 mg capsule 50 mg PO BID 09/20/24 09/20/24 History sprinkle, ext. release 24 hr Past Med/Surg History Problem List (Updated 09/20/24 @ 12:16 by Annette Sanabria MD) Stroke Chronic anticoagulation (Acute) Stroke-like symptoms (Acute) Expressive aphasia (Acute) Medical History DVT prophylaxis Hypertension Microscopic hematuria Elevated troponin Influenza A Sepsis Type 2 diabetes mellitus Atrial fibrillation Social History Smoking Status: Never smoker Tobacco Type: Cigars Second Hand Exposure: Yes; Do You Dip or Chew Tobacco: No; Hx Alcohol Use: Yes Alcohol type: beer, wine and hard liquor Hx Substance Use: No Preferred Language: Croatian Communication Ability: Effective Signal Maintainer Required: No Beliefs That Will Affect Care: None Current Living Situation: Spouse Feels Safe at Home: Yes Assistive Devices: None Review of Systems Review of Systems: All systems reviewed & are unremarkable except as noted in HPI & below Physical Exam Constitutional: + well hydrated; no acute distress Eyes: PERRL, conjunctivae normal, anicteric sclerae ENMT: external ear and nose normal, oropharynx normal Respiratory: normal respiratory effort, lungs clear to auscultation Cardiovascular: Rate/Rhythm: + irregularly irregular Gastrointestinal (Abdomen): normal bowel sounds, soft, nontender, no hepatosplenomegaly Musculoskeletal: No pedal edema Neurologic: normal touch/pain/proprioception, normal sensation to monofilament and awake; no focal motor deficits Speech / Cognition: + expressive aphasia Follows commands Psychiatric: Orientation: alert and oriented x 3 Results & Data Results & Data Vital Signs (Past 12 Hours) Vital Signs Temp Pulse Pulse Resp BP BP Pulse Ox 09/20/24 09:08 94 H 150/81 H 09/20/24 08:49 88 18 130/113 H 97 09/20/24 08:44 90 130/113 H 09/20/24 08:23 104 H 09/20/24 08:10 105 H 148/97 H 09/20/24 07:51 134 H 165/106 H 09/20/24 07:44 121 H 22 165/106 H 97 09/20/24 07:14 36.8 C 117 H 18 144/81 H 97 O2 Del Method 09/20/24 09:08 05/10/25 08:49 Room Air 09/20/24 08:44 09/20/24 08:23 09/20/24 08:10 09/20/24 07:51 09/20/24 07:44 Room Air 09/20/24 07:14 Room Air Laboratory Results Abnormal lab results 09/20/24 09/20/24 09/20/24 Range/Units 07:22 07:31 07:32 Neut # (Auto) 6.52 H (1.40-6.50) K/uL Frio # (Auto) 0.85 H (0.11-0.59) K/uL PT 12.5 H (9.0-12.0) Seconds INR 1.2 H (0.9-1.1) APTT 36 H (21-31) Seconds POC Total CO2 23 L (24-31) mmol/L POC BUN 20 H (7-18) mg/dl Creatinine 1.41 H (0.6-1.4) mg/dl POC Creatinine 1.5 H (0.6-1.3) mg/dl Glucose 157 H (70-99(Fasting)) mg/dl POC Glucose 145 H (70-99) mg/dl POC Glucose (other) 155 H (70-99) mg/dl Ur Specific [place] (1.000-1.030) Urine Protein (Negative) Urine Glucose (UA) (Negative) Urine Ketones (Negative) Urine Blood (Negative) 09/20/24 Range/Units 08:40 Neut # (Auto) (1.40-6.50) K/uL Frio # (Auto) (0.11-0.59) K/uL PT (9.0-12.0) Seconds INR (0.9-1.1) APTT (21-31) Seconds POC Total CO2 (24-31) mmol/L POC BUN (7-18) mg/dl Creatinine (0.6-1.4) mg/dl POC Creatinine (0.6-1.3) mg/dl Glucose (70-99(Fasting)) mg/dl POC Glucose (70-99) mg/dl POC Glucose (other) (70-99) mg/dl Ur Specific [place] 1.037 H (1.000-1.030) Urine Protein Trace H (Negative) Urine Glucose (UA) 2+ H (Negative) Urine Ketones Trace H (Negative) Urine Blood Trace H (Negative) (5) Atrial fibrillation Atrial fibrillation type: longstanding persistent Qualified Code(s): I48.11 - Longstanding persistent atrial fibrillation
--- NOTE | 2024-09-20 11:24 | Magnetic Resonance Report ---
MR brain wo con CLINICAL HISTORY: CVA workup COMPARISON STUDY: CT scans earlier today and MRI of 05/31/2024 FINDINGS: There is mild motion artifact. There is a small linear area of restricted diffusion lateral left frontoparietal junction consistent with small acute left MCA distribution infarction. No other acute infarction seen. No mass effect, midline shift, or hydrocephalus. Stable mild chronic small ves carol ischemic changes. No intracranial hemorrhage seen. Stable complete opacification of the left fron mary, ethmoid, and maxillary sinuses consistent with chronic sinusitis. IMPRESSION: Small acute left MCA distribution infarction. ACT 112: Positive. There are findings on this exam that require communication between the performing entity and the patient following Patient Test Result Information Act ([place] Act 112) guidelines. Electronically signed by: Everton Babcock M.D. 09/20/2024 11:22 AM
[2024-09-20] MEDS ORDERED: GLUCAGON FOR INJ 1 MG VIAL SQ PRN (11:51)
[2024-09-20] MEDS ORDERED: CARBOHYDRATES FOR HYPOGLYCEMIA PO PRN (11:51)
[2024-09-20] MEDS ORDERED: DEXTROSE 50% 50 ML SYRINGE IV PRN (11:51)
[2024-09-20] MEDS ORDERED: GLUCOSE 10 TAB/TUBE PO PRN (11:51)
[2024-09-20] MEDS ORDERED: GLUCOSE 40% GEL 15 GM TUBE PO PRN (11:51)
[2024-09-20] MEDS: APIXABAN 5 MG TABLET PO ONE (11:56)
[2024-09-20] MEDS: INSULIN ASPART PER UNIT CHARGE SC SCH (12:57)
[2024-09-20] MEDS: METOPROLOL SUCC 50MG EXT REL TAB PO STA (13:03)
--- NOTE | 2024-09-20 14:25 | Neurology Consultation ---
Date of Consultation September 20, 2024 Assessment & Plan (1) Stroke: A 79 yo M w acute left MCA embolic appearing stroke on Xarelto and compliant. Presumed Xarelto failure. Speech improved. Mild expressive aphsia. Onset is unclear. - Recommend Switching to Eliquis 5 mg BID - Start ASA 81 mg daily - Continue home Lipitor - Permissive HTN for 24 hours, treat for SBP> 220, DBP> 110 - Folllow up CT head in the AM - Neuro follow up as outpatient (2) Expressive aphasia: History of Present Illness Reason for Consultation: Aphasia Requesting Physician: Dr. Sanabria Attending Physician: Annette Sanabria MD History of Present Illness A 79 yo M w Afib on Xarelto admitted w aphasia and found to have small embolic left MCA stroke. Speech has improved. He does not takes ASA. Compliant with Xarelto. He did not switch to Eliquis yet for unclear reason. Allergies Allergy/AdvReac Type Severity Reaction Status Date / Time No Known Allergies Allergy Verified 07/11/21 11:48 Home Medications Medication Instructions Recorded Confirmed Type dapagliflozin propanediol 10 mg 10 mg PO UD 07/11/21 09/20/24 History tablet (Farxiga) glimepiride 1 mg tablet 1 mg PO UD 07/11/21 09/20/24 History metformin 500 mg tablet 1,000 mg PO BID 07/11/21 09/20/24 History sitagliptin phosphate 100 mg 100 mg PO UD 07/11/21 09/20/24 History tablet (Januvia) amlodipine 5 mg tablet 5 mg PO DAILY 05/31/24 09/20/24 History cetirizine 10 mg tablet 10 mg PO DAILY 05/31/24 09/20/24 History fluticasone propionate 50 2 spray intranasal DAILY 05/31/24 09/20/24 History mcg/actuation nasal spray,suspension lisinopril 10 mg tablet 30 mg PO UD 05/31/24 09/20/24 History atorvastatin 40 mg tablet 40 mg PO DAILY #30 tabs 06/01/24 09/20/24 Rx apixaban 5 mg tablet 5 mg PO BID 09/20/24 09/20/24 History metoprolol succinate 50 mg capsule 50 mg PO BID 09/20/24 09/20/24 History sprinkle, ext. release 24 hr Patient History Medical History DVT prophylaxis Hypertension Microscopic hematuria Elevated troponin Influenza A Sepsis Type 2 diabetes mellitus Atrial fibrillation Social History Smoking Status: Former smoker Tobacco Type: Cigars Second Hand Exposure: Yes; Do You Dip or Chew Tobacco: No; Hx Alcohol Use: Yes Alcohol type: beer Hx Substance Use: No Preferred Language: Irish Communication Ability: Effective Db2 Developer Required: No Beliefs That Will Affect Care: None Current Living Situation: Spouse Other Information That Helps Us Care for You: No Feels Safe at Home: Yes Safety Concerns: Feels Safe At This Time Assistive Devices: None Physical Exam Physical Exam: EXAM: Constitutional: appearance normally developed Face: normocephalic and atraumatic Eyes: normal lids, normal conjunctiva Neck: supple Respiratory: normal effort Abdomen: non distended Skin: no rashes, lesions, or ulcers noted Psychiatric: normal mood and normal affect NEUROLOGIC EXAMINATION: Appearance: no acute distress Orientation: awake, alert and oriented x 3 Mental Status: alert Attention: normal Knowledge: appropriate Language: mild expressive aphasia Speech: no dysarthria Cranial Nerves: CN 2 - no visual defect on confrontation and pupils round, equal CN 3, 4, 6 - extra-ocular movements intact CN 5 - facial sensation intact CN 7 - no facial asymmetry CN 8 - intact hearing CN 9, 10 - palate symmetric CN 11 - good shoulder shrug CN 12 - tongue midline Gait: deferred Coordination: no ataxia with finger to nose testing Sensory: intact and symmetric to light touch Results & Data Vital Signs (Past 12 Hours) Vital Signs Temp Pulse Pulse Resp BP BP Pulse Ox 09/20/24 13:20 102 H 09/20/24 11:51 09/20/24 11:51 36.7 C 102 H 17 158/82 H 96 09/20/24 10:00 88 22 157/99 H 98 09/20/24 09:08 94 H 150/81 H 09/20/24 08:49 88 18 130/113 H 97 09/20/24 08:44 90 130/113 H 09/20/24 08:23 104 H 09/20/24 08:10 105 H 148/97 H 09/20/24 07:51 134 H 165/106 H 09/20/24 07:44 121 H 22 165/106 H 97 09/20/24 07:14 36.8 C 117 H 18 144/81 H 97 O2 Del Method 09/20/24 13:20 09/20/24 11:51 Room Air 09/20/24 11:51 Room Air 09/20/24 10:00 Room Air 09/20/24 09:08 09/20/24 08:49 Room Air 09/20/24 08:44 09/20/24 08:23 09/20/24 08:10 09/20/24 07:51 09/20/24 07:44 Room Air 09/20/24 07:14 Room Air Diagnostic Findings MRI brain reviewed and shows small embolic appearing left MCA acute stroke.
[2024-09-20] MEDS: METOPROLOL SUCC 50MG EXT REL TAB PO SCH (20:12)
[2024-09-20] MEDS: APIXABAN 5 MG TABLET PO SCH (20:12)
[2024-09-21 06:24] LABS: Hematocrit (blood only) 47.1 % (42.0-52.0); Hemoglobin 15.4 g/dl (14.0-18.0); Mean Corpuscular Hemoglobin 28.1 pg (25.0-34.0); Mean Corpuscular Hgb Conc 32.7 g/dL (32.0-36.0); Mean Corpuscular Volume 85.8 fL (80.0-100.0); Mean Platelet Volume 10.7 fL (9.4-12.4); Platelet Count 206 K/uL (130-400); RDW Coefficient of Variation 14.4 % (11.5-14.5); RDW Standard Deviation 45.1 fL (36.4-46.3); Red Blood Count 5.49 M/uL (4.70-6.10); White Blood Count 7.81 K/ul (4.8-10.8)
[2024-09-21 06:41] LABS: BUN Creatinine Ratio 11.5 (10-20); Chol HDL Ratio 2.5 (0-5); Creatinine Clr Calc Pharmacy 44.6 ml/min; Potassium 4.4 mmol/L (3.5-5.1)
--- NOTE | 2024-09-21 07:05 | Electrocardiogram Report ---
Test Reason : Blood Pressure : */* mmHG Vent. Rate : 124 BPM Atrial Rate : * BPM P-R Int : * ms QRS Dur : 112 ms QT Int : 342 ms P-R-T Axes : * 87 58 degrees QTcB Int : 491 ms Atrial fibrillation with rapid ventricular response with premature ventricular or aberrantly conducte d complexes Right bundle branch block Abnormal ECG When compared with ECG of 31-May-2024 12:29, No significant change was found Confirmed by Jorge Levine ([id number]) on 09/21/2024 7:05:21 AM Referred By: REFERRED SELF Confirmed By: Jorge Levine
[2024-09-21 07:28] LABS: Estimated Average Glucose 151 mg/dl; Hemoglobin A1C 6.9 % (4.5-5.6)
[2024-09-21] MEDS: ATORVASTATIN 40 MG TAB PO SCH (08:21)
[2024-09-21] MEDS: CETIRIZINE HCL 10 MG TABLET PO SCH (08:21)
--- NOTE | 2024-09-21 08:43 | CT Scan Report ---
CT head/brain wo con CLINICAL HISTORY: Reassess CVA per Neuro. TECHNIQUE: Multiple axial CT images of the head were obtained without contrast. A dose lowering tech nique was utilized adhering to the principles of ALARA. CT DOSE: 663.26 mGy.cm COMPARISON: CT and MRI yesterday. FINDINGS: No intracranial hemorrhage seen. No mass effect, midline shift, or hydrocephalus. The small lateral left frontal parietal junction infarction seen on the MRI yesterday is not visualized by CT scan. Stable mild chronic small vessel ischemic changes. No skull fracture. Stable opacification of t he left frontal, ethmoid, and maxillary sinuses. IMPRESSION: No intracranial hemorrhage seen. No evidence of progression of the small left MCA distrib ution infarction seen. ACT 112: Negative or not required by law. The above report was generated using voice recognition software. It may contain grammatical, syntax o r spelling errors. Electronically signed by: Everton Babcock M.D. 09/21/2024 8:41 AM
[2024-09-21] MEDS: ASPIRIN 81 MG ECTAB PO SCH (09:41)
[2024-09-21] MEDS: FLUTICASONE PROPIONATE NA SPR 16 GM BTL SCH (09:41)
[2024-09-21 12:29] VITALS: BP 141/79; PULSE 72; RESP 20; TEMP 97.9; O2SAT 97
--- NOTE | 2024-09-21 13:01 | Communication Note ---
By CMS guidelines, a determination that the admission or continued stay is not medically necessary has been made by a member of the UR committee and a physician for this hospital stay, therefore a Code 44 will be completed and the Inpatient admission will be changed to outpatient. Date of Service: September 21, 2024
--- NOTE | 2024-09-21 14:19 | Discharge Summary ---
Discharge Summary Date of Service September 21, 2024 Principal Dx & Hospital Course #1 = Principal Diagnosis (1) Stroke: (2) Expressive aphasia: (3) Chronic anticoagulation: (4) Hypertension: (5) Atrial fibrillation: (6) Type 2 diabetes mellitus: Plan Melecio Harding is a 79-year-old man with history of diabetes mellitus type 2, A-fib, CVA in May 2024, CKD 3 with word finding difficulty that 09/20 in the am and noted to have expressive aphasia on exam Labs notable for creatinine of 1.4, blood glucose of 157 CT head did not show any acute intracranial abnormality but noted age-related cerebral atrophy, 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 Per outpatient Neuro visit on 06/10/24, his xarelto was changed to eliquis 5mg BID. According to patient, he had continued taking his Xarelto symptoms despite being changed to Eliquis. He stated that he was taking Xarelto to finish before starting the Eliquis which he still has at home. Patient was evaluated by Neurology who noted an acute left MCA embolic stroke. This was deemed to be failure of xarelto. Patient was started on asa 81mg and eliquis. REpeat ct did not show any progression. Patient did well with PT/OT and speech, ultimately cleared for discharge home. #Acute left MCA stroke Counseled patient to take Eliquis as recommended by neurology. Continue Eliquis 5 mg twice daily. Start asa 81 mg daily Continue statin resume home medications #A-fib with RVR in ER this morning. rate controlled throughout admission continue home BB #DMTII resume home regimen #CKD3 Cr at baseline Notes For Next Care Provider follow up Neurology Medication Changes From Visit Discontinue xarelto, patient verbalized understanding Start Eliquis BID, patient states its in his possesion Start ASA 81mg daily Admission HPI Per Admitting Provider 79-year-old man with history of diabetes mellitus type 2, A-fib, CVA in May 2024, CKD 3 with word finding difficulty that started this morning. History provided by patient and was at bedside. reported that she noticed patient having trouble expressing himself on waking up this morning and also some difficulty completing simple tasks such as making his coffee. He also had some unsteady gait. Patient denied any focal weakness but stated that he felt "weird" around his mouth and with his speech. noted some confusion earlier Denied fever, chills, nausea, vomiting, chest pain, shortness of breath, abdominal pain, diarrhea, constipation, dysuria, frequency, urgency. reports some chronic mild cough. Denies smoking or illicit drug use. Drinks alcohol only occasionally. Per outpatient Neuro visit on 06/10/24, his xarelto was changed to eliquis 5mg BID. According to patient, he had continued taking his Xarelto symptoms despite being changed to Eliquis. He stated that he was taking Xarelto to finish before starting the Eliquis which he still has at home. Admission Exam Per Admitting Provider Constitutional: + well hydrated; no acute distress Eyes: PERRL, conjunctivae normal, anicteric sclerae ENMT: external ear and nose normal, oropharynx normal Respiratory: normal respiratory effort, lungs clear to auscultation Cardiovascular: Rate/Rhythm: + irregularly irregular Gastrointestinal (Abdomen): normal bowel sounds, soft, nontender, no hepatosplenomegaly Musculoskeletal: No pedal edema Neurologic: normal touch/pain/proprioception, normal sensation to monofilament and awake; no focal motor deficits Speech / Cognition: + expressive aphasia Follows commands Psychiatric: Orientation: alert and oriented x 3 Discharge Exam Constitutional WD/WN, vitals as above Respiratory normal respiratory effort, lungs clear to auscultation Cardiovascular irregularly irregular Gastrointestinal (Abdomen) normal bowel sounds, soft, nontender, no hepatosplenomegaly Neurologic patellar DTR's 2+ bilat, sensation intact and PERRL, EOMI, accommodation nl, no face palsy, no dysarthria Updated Medication List Medication Instructions Recorded Confirmed Type dapagliflozin propanediol 10 mg 10 mg PO UD 07/11/21 09/20/24 History tablet (Farxiga) glimepiride 1 mg tablet 1 mg PO UD 07/11/21 09/20/24 History metformin 500 mg tablet 1,000 mg PO BID 07/11/21 09/20/24 History sitagliptin phosphate 100 mg 100 mg PO UD 07/11/21 09/20/24 History tablet (Januvia) amlodipine 5 mg tablet 5 mg PO DAILY 05/31/24 09/20/24 History cetirizine 10 mg tablet 10 mg PO DAILY 05/31/24 09/20/24 History fluticasone propionate 50 2 spray intranasal DAILY 05/31/24 09/20/24 History mcg/actuation nasal spray,suspension lisinopril 10 mg tablet 30 mg PO UD 05/31/24 09/20/24 History atorvastatin 40 mg tablet 40 mg PO DAILY #30 tabs 06/01/24 09/20/24 Rx apixaban 5 mg tablet 5 mg PO BID 09/20/24 09/20/24 History metoprolol succinate 50 mg capsule 50 mg PO BID 09/20/24 09/20/24 History sprinkle, ext. release 24 hr aspirin 81 mg tablet,delayed 81 mg PO QAM 30 days #30 tabs 09/21/24 Rx release Hospital Stay Data Consultations 09/20/24 09:01 ED Decision to Admit Stat 09/20/24 11:51 Consult Neurology Routine Diagnostic Imagining Performed 09/20/24 07:27 CT angio head w con Stat CT angio neck with con Stat CT head/brain wo con Stat 09/20/24 10:17 MRI Brain [MR brain wo con] Stat 09/21/24 07:00 CT head/brain wo con Routine Pending Results Patient Have Any Pending Studies at Discharge: No Discharge Instructions Given to Patient (Per Discharging Provider) You were admitted and noted to have an acute stroke that appears to be related to tiny blood clots. It is recommended you discontinue xarelto. Recommend Switching to Eliquis 5 mg two times a day Start ASA 81 mg daily Continue home Lipitor Please ensure Neurology follow up as outpatient Total Time Total Time Spent Total Time Spent (In Minutes): 45
== END 2024-09-21 13:12 | disposition home or self-care (01) | DRG 66 ==
LOC: ED 07:12 → SUATTDRO 10:17 → 2S 10:17